=== PATIENT | male | born 1955 | race Caucasian/White ===

== ENCOUNTER 2019-05-05 11:03 | Inpatient (IN) | payer OTHER ==
[2019-05-05 13:13] LABS: BASO % 0.7 % (0-2.0); EOS % 0.4 % (0-4.5); HEMATOCRIT 26.3 % (35.4-49); HEMOGLOBIN 8.4 GM/dL (11.7-16.9); MCH 25.8 pg (25.7-33.7); MCHC 32.1 g/dl (32.0-35.9); MEAN CELL VOLUME 80.2 fl (80-96); MEAN PLT VOLUME 8.1 fl (7.5-11.1); MONO % 8.9 % (3.8-10.2); PLATELET COUNT 195 K/MM3 (134-434); RBC 3.28 M/mm3 (4.00-5.60); RDW 22.3 % (11.9-15.9); WHITE BLOOD COUNT 7.6 K/mm3 (4.0-10.0)
[2019-05-05 13:14] LABS: VENOUS PC02 38.6 mmHg (41-51); VENOUS PH 7.45 (7.31-7.41)
[2019-05-05 13:18] LABS: VENOUS PO2 19.9 mmHg (30-40)
[2019-05-05 13:23] LABS: INR 1.59 (0.83-1.09); PROTHROMBIN TIME (PATIENT) 18.8 SEC (9.7-13.0)
[2019-05-05 13:26] LABS: ACTIVATED PTT 35.2 SECONDS (25.2-36.5)
--- NOTE | 2019-05-05 13:41 | PDOC ---
Documentation entered by Kathia Martino SCRIBE, acting as scribe for Gopi Snowden MD. Gopi Snowden MD: This documentation has been prepared by the Gunner isaac Nirvannie, SCRIBE, under my direction and personally reviewed by me in its entirety. I confirm that the documentation accurately reflects all work, treatment, procedures, and medical decision making performed by me. History of Present Illness - General Chief Complaint: Shortness of Breath Stated Complaint: SOB Time Seen by Provider: 05/05/19 12:06 History Source: Patient Exam Limitations: No Limitations - History of Present Illness Initial Comments: 05/05/19 13:24 The patient is a 64 year old male, with a significant past medical history of polysubstance abuse (alcohol and cocaine, hx of withdrawal seizures), asthma, HTN, HLD, CAD (s/p mitral valve replacement 93, CABG 05, and pacemaker 09) CHF, and Aortic Aneurysm (ascending aorta, distal abdominal aorta, left common iliac artery, left internal iliac artery), who presents to the emergency department with worsening shortness of breath. As per EMR and patient, he was evaluated at [facility] in the [place] on 04/19 at which time he was discharged to [facility] detox on 04/29 on 5 days of Augmentin 875/125 BID and Doxycycline 100 MG BID (compliant). Patient notes his shortness of breath has not improved, prompting his arrival to the ED. Per the EMR, pt was hypoxic to 85 % at [facility] this morning. He denies any recent fevers, chills, cough, headache or dizziness. He denies any recent nausea, vomit, diarrhea or constipation. He denies any recent chest pain. He denies any recent dysuria, frequency, urgency or hematuria. Allergies: NKDA Social History: Alcohol and cocaine abuse, at [facility]. Medications: Metoprolol, Burlinta, Lasix 40 mg BID, ? anticoagulation medications compliance while at [facility]. Past History - Past Medical History Allergies/Adverse Reactions: Allergies Allergy/AdvReac Type Severity Reaction Status Date / Time No Known Allergies Allergy Verified 05/05/19 11:16 Home Medications: Ambulatory Orders Albuterol Sulfate Inhaler - [Ventolin HFA Inhaler -] 2 inh PO Q4H PRN #1 inh 05/01 Aspirin Coated [Ecotrin -] 81 mg PO DAILY #30 tablet.ec 05/22/15 Budesonide/Formeterol Fumarate [SYMBICORT 160/4.5mcg -] 2 inh IH BID #1 inhaler 05/22/15 Montelukast Na [Singulair -] 10 mg PO HS #30 tablet 05/22/15 Metoprolol Succinate [Toprol Xl] 50 mg PO DAILY 04/29/19 Thiamine HCl [Vitamin B1 -] 100 mg PO DAILY 04/29/19 Ticagrelor [Brilinta -] 90 mg PO BID 04/29/19 Atorvastatin Ca [Lipitor] 80 mg PO HS 05/05/19 Furosemide [Lasix -] 40 mg PO BID 05/05/19 Lisinopril [Prinivil] 5 mg PO DAILY 05/05/19 Anemia: No Asthma: Yes Cancer: No Cardiac Disorders: Yes CVA: No COPD: No CHF: Yes Dementia: No Diabetes: No GI Disorders: No Disorders: No HTN: Yes Hypercholesterolemia: Yes (on med) Kidney Stones: No Liver Disease: No Seizures: No Thyroid Disease: No - Surgical History Abdominal Surgery: No Appendectomy: No Cardiac Surgery: Yes (VALVE REPLACEMENT 1992 AND CABG 2004) Cholecystectomy: No Lung Surgery: No Neurologic Surgery: No Orthopedic Surgery: No - Reproductive History Testicular Surgery: No - Suicide/Smoking/Psychosocial Hx Smoking Status: Yes Smoking History: Former smoker Have you smoked in the past 12 months: Yes Number of Cigarettes Smoked Daily: 0 If you are a former smoker, when did you quit?: 04/29 Information on smoking cessation initiated: No 'Breaking Loose' booklet given: 04/29/19 Hx Alcohol Use: Yes Drug/Substance Use Hx: No Substance Use Type: Alcohol Hx Substance Use Treatment: Yes ([facility] 04/20/19 -04/29/19) Review of Systems - Review of Systems Able to Perform ROS?: Yes Comments:: 05/05/19 13:24 "GENERAL/CONSTITUTIONAL: No fever or chills. No weakness. HEAD, EYES, EARS, NOSE AND THROAT: No change in vision. No ear pain or discharge. No sore throat. GASTROINTESTINAL: No nausea, vomiting, diarrhea or constipation. GENITOURINARY: No dysuria, frequency, or change in urination. CARDIOVASCULAR: +SOB. No chest pain RESPIRATORY: No cough, wheezing, or hemoptysis. MUSCULOSKELETAL: No joint or muscle swelling or pain. No neck or back pain. SKIN: No rash NEUROLOGIC: No headache, vertigo, loss of consciousness, or change in strength/ sensation. ENDOCRINE: No increased thirst. No abnormal weight change. HEMATOLOGIC/LYMPHATIC: No anemia, easy bleeding, or history of blood clots. ALLERGIC/IMMUNOLOGIC: No hives or skin allergy." All Other Systems: Reviewed and Negative *Physical Exam - Vital Signs Last Vital Signs Temp Pulse Resp BP Pulse Ox 97.8 F 98 H 22 H 124/82 100 05/05/19 11:16 05/05/19 11:16 05/05/19 11:16 05/05/19 11:16 05/05/19 11:35 - Physical Exam Comments: 05/05/19 13:25 GENERAL: Awake, alert, and fully oriented, in mild resp distress HEAD: No signs of trauma EYES: PERRLA, EOMI, sclera anicteric, conjunctiva clear ENT: Oropharynx clear without exudates. Moist mucosa NECK: Normal ROM, supple, no lymphadenopathy, JVD, or masses LUNGS: Diminished BS throughout, rales throughout, no wheezing. Tachypneic to 35 HEART: Regular rate and rhythm, normal S1 and S2, no murmurs, rubs or gallops ABDOMEN: Soft, nontender, normoactive bowel sounds. No guarding, no rebound. No masses EXTREMITIES: Normal range of motion, mild symmetric LE edema to the knees b/l. No clubbing or cyanosis. No cords, erythema, or tenderness BACK: No midline spinal tenderness in cervical/thoracic/lumbar region NEUROLOGICAL: Normal speech, cranial nerves intact, equal strength and sensation b/l SKIN: chest scar c/d/i, otherwise Warm, Dry, normal turgor, no rashes or lesions noted. Heart Score/ECG Review #1 05/05/19 13:10 Twelve-lead EKG was performed and reviewed by me. Accelerated junctional rhytm, rate 95. LAD, wide QRS. No ABDIEL. Compared to previous EKG, no sig change ED Treatment Course - LABORATORY CBC & Chemistry Diagram: 05/05/19 13:00 05/05/19 13:00 - RADIOLOGY Radiology Studies Ordered: Category Date Time Status CHEST X-RAY PORTABLE* [RAD] Stat Radiology 05/05/19 12:51 Ordered Medical Decision Making - Medical Decision Making 05/05/19 13:04 64yo M with MMP including CABG, CHF, AAA, MVR, PPM, COPD, etoh abuse presents to the ED with progressive SOB x 1 week Pt tachypneic, otherwise satting 100% on 2L At [facility], pt was 85% on RA DDx includes PE vs CHF vs COPD vs ACS No chest or abdominal pain to suggest AAA and pulses/pressures equal b/l Plan for tele, labs, XR, ?CTA, admit 05/05/19 17:19 Labs with BNP 3800s hgb low to 8.2 but improved from 7.6 two days ago CTA ordered, reveals CHF and PNA Given recent failure of augmentin and doxy, pt covered with jesica Osman azithro Case discussed with TAMI Ruiz, pt accepted for admission to Dr. Carlos's service Case discussed in detail with admitting physician including history, physical exam and ancillary studies. Admitting physician has assumed care for the patient, will follow all pending diagnostics and will complete the evaluation and treatment. *DC/Admit/Observation/Transfer Diagnosis at time of Disposition: CHF (congestive heart failure), PNA (pneumonia) - Discharge Dispostion Condition at time of disposition: Stable - Referrals - Patient Instructions - Post Discharge Activity - Attestations Physician Attestion: 05/05/19 17:21 I, Dr. Gopi Snowden MD, attest that this document has been prepared under my direction and personally reviewed by me in its entirety. I further attest, that it accurately reflects all work, treatment, procedures and medical decision -making performed by me.
[2019-05-05 13:51] LABS: ALBUMIN 2.9 g/dl (3.4-5.0); BLOOD UREA NITROGEN 13.1 mg/dL (7-18); CALCIUM 8.6 mg/dL (8.5-10.1); CREATININE 0.9 mg/dL (0.55-1.3); N-TERMINAL BNP 3882.9 pg/ml (5-125); TOT PROT 7.2 g/dl (6.4-8.2)
[2019-05-05 13:52] LABS: MAGNESIUM 2.5 mg/dL (1.8-2.4); POTASSIUM 4.2 mmol/L (3.5-5.1)
[2019-05-05 15:35] LABS: ANISOCYTOSIS 0; MACROCYTOSIS 0; PLATELET ESTIMATE NORMAL
[2019-05-05] MEDS ORDERED: VANCOMYCIN 1,000 MG in DEXTROSE 5%-WATER - 250 ML IVPB ONE (17:03)
[2019-05-05] MEDS ORDERED: PIPERACILLIN/TAZOB 4.5 GM 4.5 GM in DEXTROSE 5%-WATER - 100 ML IVPB ONE (17:03)
[2019-05-05] MEDS ORDERED: AZITHROMYCIN IVPB 500 MG in DEXTROSE 5%-WATER - 250 ML IVPB ONE (17:04)
[2019-05-05] MEDS ORDERED: VANCOMYCIN 1 GRAM (PRE-DOCKED) 1,000 MG/250 ML BAG IVPB ONE (17:22)
[2019-05-05] MEDS ORDERED: AZITHROMYCIN IVPB 500 MG/250 ML BAG IVPB ONE (17:22)
[2019-05-05] MEDS ORDERED: PIPERACILLIN/TAZOB 4.5 GM 4.5 GM/100 ML BAG IVPB ONE (17:22)
--- NOTE | 2019-05-05 18:05 | HP ---
Admitting History and Physical - Admission Chief Complaint: Shortness of Breath History of Present Illness: The patient is a 64 year old male, with a significant past medical history of polysubstance abuse (alcohol and cocaine, hx of withdrawal seizures), asthma, HTN, HLD, CAD (s/p mitral valve replacement 93, CABG 05, and pacemaker 09) CHF, and Aortic Aneurysm (ascending aorta, distal abdominal aorta, left common iliac artery, left internal iliac artery), who presented to the emergency department with worsening shortness of breath. As per EMR and patient, he was evaluated at [facility] in the [place] on 04/19 at which time he was discharged to [facility] on 04/29 on 5 days of Augmentin 875/125 BID and Doxycycline 100 MG BID (compliant). Patient notes his shortness of breath has not improved, prompting his arrival to the ED. Per the EMR, pt was hypoxic to 85 % at [facility] this morning. SUBJECTIVE PT complains of a mild aching abdominal pain. He denies any recent fevers, chills, cough, headache or dizziness. He denies any recent nausea, vomit, diarrhea or constipation. He denies any recent chest pain. He denies any recent dysuria, frequency, urgency or hematuria. History Source: Patient - Past Medical History Cardiovascular: Yes: CAD, CHF, HTN, Hyperlipdemia, [place] Pulmonary: Yes: Asthma, COPD, Pneumonia Heme/Onc: Yes: Anemia Psych: Yes: Addictions (Alcohol, Cocaine) Musculoskeletal: Yes: Osteoarthritis - Past Surgical History Past Surgical History: Yes: CABG, Permanent Pacemaker, Valve Replacement - Smoking History Smoking history: Former smoker Have you smoked in the past 12 months: Yes Aproximately how many cigarettes per day: 0 If you are a former smoker, when did you quit?: 04/29 - Alcohol/Substance Use Hx Alcohol Use: Yes History of Substance Use: reports: Cocaine, Marijuana - Social History ADL: Independent History of Recent Travel: No Home Medications - Allergies Allergies/Adverse Reactions: Allergies Allergy/AdvReac Type Severity Reaction Status Date / Time No Known Allergies Allergy Verified 05/05/19 11:16 - Home Medications Home Medications: Ambulatory Orders Albuterol Sulfate Inhaler - [Ventolin HFA Inhaler -] 2 inh PO Q4H PRN #1 inh 05/01 Aspirin Coated [Ecotrin -] 81 mg PO DAILY #30 tablet.ec 05/22/15 Budesonide/Formeterol Fumarate [SYMBICORT 160/4.5mcg -] 2 inh IH BID #1 inhaler 05/22/15 Montelukast Na [Singulair -] 10 mg PO HS #30 tablet 05/22/15 Metoprolol Succinate [Toprol Xl] 50 mg PO DAILY 04/29/19 Thiamine HCl [Vitamin B1 -] 100 mg PO DAILY 04/29/19 Ticagrelor [Brilinta -] 90 mg PO BID 04/29/19 Atorvastatin Ca [Lipitor] 80 mg PO HS 05/05/19 Furosemide [Lasix -] 40 mg PO BID 05/05/19 Lisinopril [Prinivil] 5 mg PO DAILY 05/05/19 Family Disease History - Family Disease History Family Disease History: Other: Father (alcohol), Mother (alcohol AND ) Review of Systems - Review of Systems Constitutional: reports: Lethargy Eyes: reports: No Symptoms Neck: reports: No Symptoms Cardiovascular: reports: No Symptoms, Shortness of Breath Respiratory: reports: Cough, SOB, SOB on Exertion Gastrointestinal: reports: Abdominal Pain Genitourinary: reports: No Symptoms Musculoskeletal: reports: No Symptoms Integumentary: reports: No Symptoms Neurological: reports: No Symptoms Endocrine: reports: No Symptoms Physical Examination Vital Signs: Vital Signs Temperature 97.8 F 05/05/19 11:16 Pulse Rate 91 H 05/05/19 14:44 Respiratory Rate 22 H 05/05/19 14:44 Blood Pressure 137/89 05/05/19 14:44 O2 Sat by Pulse Oximetry (%) 96 05/05/19 14:44 Constitutional: Yes: Well Nourished, Diaphoresis Eyes: Yes: WNL, Conjunctiva Clear, EOM Intact HENT: Yes: WNL, Atraumatic, Normocephalic Neck: Yes: WNL, Supple, Trachea Midline Cardiovascular: Yes: WNL, Regular Rate and Rhythm, S1, S2 Respiratory: Yes: Diminished, On Nasal O2, SOB on Exertion, Other (Patient became mor short of breath during interview) Gastrointestinal: Yes: Normal Bowel Sounds, Soft, Distention, Tenderness ...Rectal Exam: Yes: Deferred Renal/: Yes: WNL Musculoskeletal: Yes: WNL Extremities: Yes: WNL Edema: No Peripheral Pulses WNL: Yes Integumentary: Yes: WNL Neurological: Yes: WNL, Alert, Oriented Psychiatric: Yes: WNL, Alert, Oriented Labs: CBC, BMP 05/05/19 13:00 05/05/19 13:00 Imaging - Results Chest X-ray: Report Reviewed (noted is the widened mediastinum with sternal sutures and left pacemaker. There are some progressive congestive changes with some pleural fluid and atelectasis at the bases. Follow-up recommended) Cat Scan: Report Reviewed (No CT evidence of pulmonary embolism. Several small patchy bilateral upper and mid lung opacities are seen suggestive of infiltrates, less likely pulmonary edema. Small loculated right pleural effusion with associated pleural thickening. A small amount of pleural fluid is seen within the right oblique fissure. Cardiomegaly. Status post median sternotomy with CABG. Transvenous cardiac pacemaker in place. Fusiform aneurysmal dilatation of the ascending aorta with a 4.5 cm diameter. Several nonspecific mildly enlarged mediastinal lymph nodes are seen. Correlation with 2-3 month follow-up CT is suggested unless prior exams are available from a different facility for direct comparison.) Assessment/Plan HOSPITAL ACQUIRED PNEUMONIA -Continue ABX -Vanco, Zosyn, and Zithromax -Consult ID -Consult Pulmonary -Suppplental O2 -Duo Nebs -Maintain 02 Sat 92% on Supp o2 CHF -Cautious Hydration -Repeat BNP in AM -Echo-If abnormal will consult Cardiology -Continue Home dose of Lasix 40 mg PO BID COPD -Continue Symbicort, ALbuterol, and Singulair HTN -Continue Metroprolol 50mg PO Daily MITRAL VALVE REPLACEMENT -Continue Brillinta -Continue ASA 81mg PO Daily ETOH -Pt was in inpatient rehab at [facility] before presenting to the ED -Continue Thiamine and Folic Acid HYPERCHOLESTEROLEMIA -Continue Atorvastatin 80mg PO HS PROPHYLACTIC -FEN -Maintain as Inpatient -Discharge Planning -Full Code Visit type - Emergency Visit Emergency Visit: Yes ED Registration Date: 05/05/19 Care time: The patient presented to the Emergency Department on the above date and was hospitalized for further evaluation of their emergent condition. - New Patient This patient is new to me today: Yes Date on this admission: 05/05/19 - Critical Care Critical Care patient: No
[2019-05-05] MEDS: ALBUTEROL SO4 2.5/IPRATROPIUM 0.5 INH SOL 3 ML VIAL.NEB. NEB PRN (19:09)
[2019-05-05] MEDS ORDERED: PIPERACILLIN/TAZOB 4.5 GM 4.5 GM in DEXTROSE 5%-WATER 100 ML IVPB SCH (19:30)
[2019-05-05] MEDS: PIPERACILLIN/TAZOB 4.5 GM 4.5 GM in DEXTROSE 5%-WATER 100 ML IVPB SCH (21:00)
[2019-05-05] MEDS: ATORVASTATIN CA 80 MG TABLET (FP) PO SCH (22:58)
[2019-05-05] MEDS: BUDESONIDE/FORMETEROL FUMARATE 160/4.5 mcg INHALER IH SCH (22:58)
[2019-05-05] MEDS: FUROSEMIDE 40 MG TABLET (FP) PO SCH (22:58)
[2019-05-05] MEDS: MONTELUKAST NA 10 MG TABLET PO SCH (22:58)
[2019-05-05] MEDS: TICAGRELOR 90 MG TABLET PO SCH (22:58)
[2019-05-06] MEDS ORDERED: DEXTROSE 5%-WATER 100 ML IVPB ONE ×3 (01:57→15:04)
[2019-05-06] MEDS ORDERED: PIPERACILLIN/TAZOBACTAM 4.5 GM VIAL IVPB ONE ×3 (01:57→15:04)
[2019-05-06] MEDS: PIPERACILLIN/TAZOB 4.5 GM 4.5 GM in DEXTROSE 5%-WATER 100 ML IVPB SCH ×3 (02:06→15:14)
[2019-05-06 07:01] LABS: BASO % 0.7 % (0-2.0); EOS % 1.1 % (0-4.5); HEMATOCRIT 24.4 % (35.4-49); HEMOGLOBIN 7.8 GM/dL (11.7-16.9); LYMPH % 15.9 % (8-40); MCH 25.5 pg (25.7-33.7); MCHC 31.9 g/dl (32.0-35.9); MEAN CELL VOLUME 80.1 fl (80-96); MEAN PLT VOLUME 8.1 fl (7.5-11.1); MONO % 8.7 % (3.8-10.2); NEUT % 73.6 % (42.8-82.8); PLATELET COUNT 177 K/MM3 (134-434); RBC 3.05 M/mm3 (4.00-5.60); RDW 22.2 % (11.9-15.9); WHITE BLOOD COUNT 7.4 K/mm3 (4.0-10.0)
[2019-05-06] MEDS: ALBUTEROL SO4 2.5/IPRATROPIUM 0.5 INH SOL 3 ML VIAL.NEB. NEB PRN ×2 (07:03→11:58)
[2019-05-06 07:10] LABS: ALBUMIN 2.7 g/dl (3.4-5.0); BILIRUBIN,TOTAL 1.8 mg/dL (0.2-1); BLOOD UREA NITROGEN 13.1 mg/dL (7-18); CALCIUM 8.2 mg/dL (8.5-10.1); MAGNESIUM 2.5 mg/dL (1.8-2.4); N-TERMINAL BNP 2185.3 pg/ml (5-125); POTASSIUM 3.9 mmol/L (3.5-5.1); TOT PROT 6.6 g/dl (6.4-8.2)
[2019-05-06 07:22] LABS: INR 1.52 (0.83-1.09)
--- NOTE | 2019-05-06 07:36 | PN ---
Progress Note, Physician Chief Complaint: SOB History of Present Illness: The patient is a 64 year old male, with a significant past medical history of polysubstance abuse (alcohol and cocaine, hx of withdrawal seizures), asthma, HTN, HLD, CAD (s/p mitral valve replacement 93, CABG 05, and pacemaker 09) CHF, and Aortic Aneurysm (ascending aorta, distal abdominal aorta, left common iliac artery, left internal iliac artery), who presented to the emergency department with worsening shortness of breath. As per EMR and patient, he was evaluated at [facility] in the [place] on 04/19 at which time he was discharged to [facility] on 04/29 on 5 days of Augmentin 875/125 BID and Doxycycline 100 MG BID (compliant). Patient notes his shortness of breath has not improved, prompting his arrival to the ED. Per the EMR, pt was hypoxic to 85 % at [facility] this morning. - Current Medication List Current Medications: Active Medications Albuterol/Ipratropium (Duoneb -) 1 amp NEB Q4H PRN PRN Reason: SHORTNESS OF BREATH Last Admin: 05/06/19 07:03 Dose: 1 amp Aspirin (Ecotrin -) 81 mg PO DAILY MICHELLE Atorvastatin Calcium (Lipitor -) 80 mg PO HS [facility] Last Admin: 05/05/19 22:58 Dose: 80 mg Budesonide/Formoterol Fumarate (Symbicort 160/4.5mcg -) 2 puff IH BID [facility] Last Admin: 05/05/19 22:58 Dose: 2 inh Folic Acid (Folic Acid -) 1 mg PO DAILY MICHELLE Furosemide (Lasix -) 40 mg PO BID MICHELLE Last Admin: 05/05/19 22:58 Dose: 40 mg Piperacillin Sod/Tazobactam (Sod 4.5 gm/ Dextrose) 100 mls @ 200 mls/hr IVPB Q6H-IV MICHELLE; Protocol Azithromycin (Zithromax 500mg Ivpb (Pre-Docked)) 500 mg in 250 mls @ 250 mls/ hr IVPB DAILY MICHELLE Piperacillin Sod/Tazobactam (Sod 4.5 gm/ Dextrose) 100 mls @ 100 mls/hr IVPB Q6H MICHELLE Stop: 05/06/19 15:59 Last Admin: 05/06/19 02:06 Dose: 100 mls/hr Lisinopril (Prinivil) 5 mg PO DAILY MICHELLE Metoprolol Succinate (Toprol Xl -) 50 mg PO DAILY [facility] Montelukast Sodium (Singulair -) 10 mg PO HS [facility] Last Admin: 05/05/19 22:58 Dose: 10 mg Multivitamins/Minerals/Vitamin C (Tab-A-Vit -) 1 tab PO DAILY [facility] Thiamine HCl (Vitamin B1 -) 100 mg PO DAILY [facility] Ticagrelor (Brilinta -) 90 mg PO BID [facility] Last Admin: 05/05/19 22:58 Dose: 90 mg - Objective Vital Signs: Vital Signs Temperature 98.7 F 05/06/19 01:47 Pulse Rate 82 05/06/19 05:29 Respiratory Rate 18 05/06/19 05:29 Blood Pressure 92/68 05/06/19 05:29 O2 Sat by Pulse Oximetry (%) 94 L 05/05/19 22:35 Constitutional: Yes: Well Nourished, No Distress, Calm Eyes: Yes: WNL, Conjunctiva Clear, EOM Intact HENT: Yes: WNL, Atraumatic, Normocephalic Neck: Yes: WNL, Supple, Trachea Midline Cardiovascular: Yes: WNL, Regular Rate and Rhythm, Tachycardia Respiratory: Yes: Regular, Diminished (at bases), On Nasal O2 (4L), SOB on Exertion Gastrointestinal: Yes: WNL, Normal Bowel Sounds, Soft ...Rectal Exam: Yes: Deferred Musculoskeletal: Yes: WNL Extremities: Yes: WNL Edema: No Peripheral Pulses WNL: Yes Integumentary: Yes: WNL Neurological: Yes: WNL, Alert, Oriented ...Motor Strength: WNL Psychiatric: Yes: WNL, Alert, Oriented Labs: CBC, BMP 05/06/19 05:50 INR, PTT INR 1.52 (0.83-1.09) H 05/06/19 05:50 - ....Imaging Chest X-ray: Report Reviewed, Image Reviewed Cat Scan: Report Reviewed (Chest X-ray: Report Reviewed (noted is the widened mediastinum with sternal sutures and left pacemaker. There are some progressive congestive changes with some pleural fluid and atelectasis at the bases. Follow -up recommended) Cat Scan: Report Reviewed (No CT evidence of pulmonary embolism. Several small patchy bilateral upper and mid lung opacities are seen suggestive of infiltrates, less likely pulmonary edema. Small loculated right pleural effusion with associated pleural thickening. A small amount of pleural fluid is seen within the right oblique fissure. Cardiomegaly. Status post median sternotomy with CABG. Transvenous cardiac pacemaker in place. Fusiform aneurysmal dilatation of the ascending aorta with a 4.5 cm diameter. Several nonspecific mildly enlarged mediastinal lymph nodes are seen. Correlation with 2-3 month follow-up CT is suggested unless prior exams are available from a different facility for direct comparison.)) Other: Report Reviewed (TTE: global hypokinesis, EF 35-30%, mild MR/TR) Problem List - Problems (1) CHF (congestive heart failure) Assessment/Plan: Decompensated CHF continue lasix 40mg IV BID TTE with global hypokenesis, EF 25-30% Cardiology consult pending -Cautious Hydration -BNP in AM -Echo-If abnormal will consult Cardiology -Continue Home dose of Lasix 40 mg PO BID COPD -Continue Symbicort, ALbuterol, and Singulair HTN -Continue Metroprolol 50mg PO Daily MITRAL VALVE REPLACEMENT -Continue Brillinta -Continue ASA 81mg PO Daily ETOH -Pt was in inpatient rehab at [facility] before presenting to the ED -Continue Thiamine and Folic Acid HYPERCHOLESTEROLEMIA -Continue Atorvastatin 80mg PO HS PROPHYLACTIC -FEN -Maintain as Inpatient -Discharge Planning -Full Code Code(s): I50.9 - HEART FAILURE, UNSPECIFIED (2) PNA (pneumonia) Assessment/Plan: -CXR suggestive of more CHR decomepsation vs Pna -no leukocytosis, afebrile, DC abx and will monitor off -appreciate Pulmonary recommendations -Suppplental O2 NC -Duo Nebs prn -Maintain 02 Sat 92% on Supp o2 Code(s): J18.9 - PNEUMONIA, UNSPECIFIED ORGANISM (3) Anemia Assessment/Plan: monitor CBC transfuse for hgb <8 given cardiac disaese start iron and folic acid Code(s): D64.9 - ANEMIA, UNSPECIFIED Qualifiers: Anemia type: iron deficiency (4) Essential hypertension Assessment/Plan: patient normotensive continue lisinipril tele monitoring Code(s): I10 - ESSENTIAL (PRIMARY) HYPERTENSION (5) Hx of cardiac pacemaker Assessment/Plan: follow up with primary piano accompanist Code(s): Z95.0 - PRESENCE OF CARDIAC PACEMAKER (6) S/P CABG (coronary artery bypass graft) Code(s): Z95.1 - PRESENCE OF AORTOCORONARY BYPASS GRAFT (7) Polysubstance (including opioids) dependence without physiological dependence Assessment/Plan: continue thiamin, MVI, and folic acid refer back to [facility] when medically stable-Dr Obrien Code(s): F19.20 - OTHER PSYCHOACTIVE SUBSTANCE DEPENDENCE, UNCOMPLICATED (8) Hx of hyperlipidemia Assessment/Plan: continue atorostatin Code(s): Z86.39 - PERSONAL HISTORY OF ENDO, NUTRITIONAL AND METABOLIC DISEASE (9) Asthma Code(s): J45.909 - UNSPECIFIED ASTHMA, UNCOMPLICATED (10) COPD (chronic obstructive pulmonary disease) Assessment/Plan: continue inhaled steroids/bronchodilators BiPap as needed at night Code(s): J44.9 - CHRONIC OBSTRUCTIVE PULMONARY DISEASE, UNSPECIFIED Qualifiers: Emphysema type: unspecified (11) Thoracic aortic aneurysm Assessment/Plan: outpatient surveillance Code(s): I71.2 - THORACIC AORTIC ANEURYSM, WITHOUT RUPTURE Visit type - Emergency Visit Emergency Visit: Yes ED Registration Date: 05/05/19 Care time: The patient presented to the Emergency Department on the above date and was hospitalized for further evaluation of their emergent condition. - New Patient This patient is new to me today: No - Critical Care Critical Care patient: No - Discharge Referral Referred to [facility] No
[2019-05-06] MEDS ORDERED: AZITHROMYCIN IVPB 500 MG/250 ML BAG IVPB SCH (10:00)
[2019-05-06] MEDS: BUDESONIDE/FORMETEROL FUMARATE 160/4.5 mcg INHALER IH SCH ×2 (10:20→21:05)
[2019-05-06] MEDS: MULTIVITAMINS (DAILY MVI) TABLET (FP) PO SCH (10:22)
[2019-05-06] MEDS: LISINOPRIL 20 MG TABLET (FP) PO SCH (10:22)
[2019-05-06] MEDS: FUROSEMIDE 40 MG TABLET (FP) PO SCH (10:22)
[2019-05-06] MEDS: FOLIC ACID 1 MG TABLET (FP) PO SCH (10:22)
[2019-05-06] MEDS: ASPIRIN COATED 81 MG TABLET.EC PO SCH (10:22)
[2019-05-06] MEDS: THIAMINE HCL 100 MG TABLET (FP) PO SCH (10:22)
[2019-05-06] MEDS: TICAGRELOR 90 MG TABLET PO SCH ×2 (10:29→21:04)
[2019-05-06] MEDS ORDERED: PT OWN MED DRAWER 7, Y5N ONE (10:31)
--- NOTE | 2019-05-06 12:33 | EKG ---
Test Reason : Blood Pressure : / mmHG Vent. Rate : 095 BPM Atrial Rate : 091 BPM P-R Int : 000 ms QRS Dur : 156 ms QT Int : 434 ms P-R-T Axes : 000 -63 046 degrees QTc Int : 545 ms WIDE QRS RHYTHM LEFT AXIS DEVIATION LEFT VENTRICULAR HYPERTROPHY WITH QRS WIDENING LATERAL INFARCT , AGE UNDETERMINED INFERIOR INFARCT , AGE UNDETERMINED ABNORMAL ECG WHEN COMPARED WITH ECG OF 29-APR-2019 18:30, NO SIGNIFICANT CHANGE WAS FOUND Confirmed by STEVE BUTLER MD ([id number]) on 05/06/2019 12:32:50 PM Referred By: Confirmed By:STEVE BUTLER MD
--- NOTE | 2019-05-06 12:59 | CON.PULM ---
Consult Consult Specialty:: PULMONARY Referred by:: Hospitalist Reason for Consultation:: shortness of breath - History of Present Illness Chief Complaint: shortness of breath History of Present Illness: 64yo male with h/o HTN, hyperlipidemia, polysubstance abuse, CAD s/p CABG, s/p MVR, CHF, COPD who was sent from [facility] for shortness of breath and hypoxia. Denies chest pain or palpitations. Reports a cough productive of brown sputum and wheezing. No fevers, chills or sweats. Does use inhalers at home but does not recall the names. - History Source History Provided By: Patient, Medical Record Limitations to Obtaining History: Clinical Condition - Past Medical History Cardio/Vascular: Yes: CAD, CHF, HTN, Hyperlipdemia, [place] Pulmonary: Yes: Asthma, COPD, Pneumonia Psych: Yes: Addictions (Alcohol, Cocaine) Musculoskeletal: Yes: Osteoarthritis - Past Surgical History Past Surgical History: Yes: CABG, Permanent Pacemaker, Valve Replacement - Alcohol/Substance Use Hx Alcohol Use: Yes History of Substance Use: reports: Cocaine, Marijuana - Smoking History Smoking history: Former smoker Have you smoked in the past 12 months: Yes Aproximately how many cigarettes per day: 0 If you are a former smoker, when did you quit?: 04/29 - Social History ADL: Independent History of Recent Travel: No Home Medications - Allergies Allergies/Adverse Reactions: Allergies Allergy/AdvReac Type Severity Reaction Status Date / Time No Known Allergies Allergy Verified 05/05/19 11:16 - Home Medications Home Medications: Ambulatory Orders Albuterol Sulfate Inhaler - [Ventolin HFA Inhaler -] 2 inh PO Q4H PRN #1 inh 05/01 Aspirin Coated [Ecotrin -] 81 mg PO DAILY #30 tablet.ec 05/22/15 Budesonide/Formeterol Fumarate [SYMBICORT 160/4.5mcg -] 2 inh IH BID #1 inhaler 05/22/15 Montelukast Na [Singulair -] 10 mg PO HS #30 tablet 05/22/15 Metoprolol Succinate [Toprol Xl] 50 mg PO DAILY 04/29/19 Thiamine HCl [Vitamin B1 -] 100 mg PO DAILY 04/29/19 Ticagrelor [Brilinta -] 90 mg PO BID 04/29/19 Atorvastatin Ca [Lipitor] 80 mg PO HS 05/05/19 Furosemide [Lasix -] 40 mg PO BID 05/05/19 Lisinopril [Prinivil] 5 mg PO DAILY 05/05/19 Family Disease History - Family Disease History Family Disease History: Other: Father (alcohol), Mother (alcohol AND ) Review of Systems - Review of Systems Constitutional: reports: Weakness. denies: Chills, Fever Eyes: denies: Recent Change in Vision HENT: denies: Nasal Congestion, Throat Pain Neck: denies: Stiffness, Tenderness Cardiovascular: reports: Shortness of Breath. denies: Chest Pain, Edema, Palpitations Respiratory: reports: Cough, Exercise Intolerance, SOB on Exertion, Wheezing. denies: Hemoptysis Gastrointestinal: denies: Abdominal Pain, Nausea, Vomiting Genitourinary: denies: Dysuria, Hematuria Neurological: denies: Dizziness, Headache Endocrine: denies: Unexplained Weight Loss Physical Exam Vital Sings: Vital Signs Temperature 98.7 F 05/06/19 09:00 Pulse Rate 100 H 05/06/19 09:00 Respiratory Rate 18 05/06/19 09:00 Blood Pressure 99/62 05/06/19 09:00 O2 Sat by Pulse Oximetry (%) 95 05/06/19 09:00 Constitutional: Yes: Anxious, Mild Distress Eyes: Yes: Conjunctiva Clear, EOM Intact HENT: Yes: Atraumatic, Normocephalic Neck: Yes: Supple, Trachea Midline Cardiovascular: Yes: Regular Rate and Rhythm, JVD Respiratory: Yes: Rhonchi (scattered) ...Clubbing: No Gastrointestinal: Yes: Normal Bowel Sounds, Soft. No: Tenderness Edema: No Neurological: Yes: Alert, Oriented Labs: CBC, BMP 05/06/19 05:50 05/06/19 05:50 Imaging - Results Chest X-ray: Report Reviewed, Image Reviewed Cat Scan: Report Reviewed, Image Reviewed (diffuse ground glass opacities) Problem List - Problems (1) CHF (congestive heart failure) Code(s): I50.9 - HEART FAILURE, UNSPECIFIED (2) CAD (coronary artery disease) Code(s): I25.10 - ATHSCL HEART DISEASE OF [place] CORONARY ARTERY W/O ANG PCTRS Qualifiers: Coronary Disease-Associated Artery/Lesion type: bypass graft (3) COPD (chronic obstructive pulmonary disease) Code(s): J44.9 - CHRONIC OBSTRUCTIVE PULMONARY DISEASE, UNSPECIFIED Qualifiers: Emphysema type: unspecified (4) Essential hypertension Code(s): I10 - ESSENTIAL (PRIMARY) HYPERTENSION (5) S/P CABG (coronary artery bypass graft) Code(s): Z95.1 - PRESENCE OF AORTOCORONARY BYPASS GRAFT Assessment/Plan Decompensated CHF r/o Acute COPD Exacerbation Less likely Pneumonia CAD s/p CABG h/o MVR HTN Hyperlipidemia Polysubstance Abuse - IV lasix - monitor urine output, creatinine - echocardiogram - empiric medrol - inhaled bronchodilators standing and PRN - BiPAP to assist in work of breathing - recently completed antibiotic course as outpt, no fevers or leukocytosis, would monitor off for now - outpt PFTs - DVT prophylaxis Thank you for this consult Luis Arreola MD
[2019-05-06] MEDS ORDERED: ALBUTEROL SO4 0.083% IH SOL 2.5 MG/3 ML VIAL.NEB. NEB PRN (13:01)
--- NOTE | 2019-05-06 13:02 | ECHO ---
Name: MICHAEL RIZO Exam:Adult Echocardiogram Study Date: 05/06/2019 08:19 AM Age: 64 yrs Reason For Study: CHF Height: 65 in Weight: 166 lb BSA: 1.8 m2 MMode/2D Measurements & Calculations IVSd: 0.96 cm Ao root diam: 2.9 cm LVIDd: 5.9 cm LA dimension: 4.5 cm LVIDs: 4.4 cm LVPWd: 0.91 cm EDV(Teich): 173.9 ml LVOT diam: 2.0 cm ESV(Teich): 88.4 ml Doppler Measurements & Calculations MV E max tod: 270.3 cm/sec MVA(VTI): 2.8 cm2 MV A max tod: 75.7 cm/sec MV V2 max: 318.4 cm/sec MV E/A: 3.6 MV max P.5 mmHg MV dec time: 0.27 sec MV V2 mean: 135.9 cm/sec MV mean P.0 mmHg MV V2 VTI: 50.2 cm Ao V2 max: 229.2 cm/sec LV V1 max P.3 mmHg Ao max P.0 mmHg LV V1 mean P.9 mmHg Ao V2 mean: 189.2 cm/sec LV V1 max: 265.9 cm/sec Ao mean P.2 mmHg LV V1 mean: 129.8 cm/sec Ao V2 VTI: 46.6 cm LV V1 VTI: 43.9 cm CRYSTAL(I,D): 3.0 cm2 CRYSTAL(V,D): 3.7 cm2 MR max tod: 430.4 cm/sec SV(LVOT): 138.4 ml MR max P.1 mmHg TR max tod: 344.8 cm/sec Med Peak E' Tod: 8.4 cm/sec TR max P.9 mmHg Med E/e': 32.2 Lat Peak E' Tod: 12.6 cm/sec Lat E/e': 21.5 Procedure A complete two-dimensional transthoracic echocardiogram was performed (2D, M-mode, Doppler and color flow Doppler). The study was technically difficult with many images being suboptimal in quality. Left Ventricle The left ventricle is mildly dilated. Left ventricular systolic function is severely reduced. Ejectio n Fraction = 25-30%. There is severe global hypokinesis of the left ventricle. Right Ventricle The right ventricle is normal in size and function. Atria Normal left and right atrial size and function. Mitral Valve There is a bioprosthetic mitral valve. The prosthetic mitral valve is well-seated. There is no mitral regurgitation noted. Tricuspid Valve There is mild tricuspid regurgitation. Right ventricular systolic pressure is elevated at 40-50mmHg. Aortic Valve Mild valvular aortic stenosis. No aortic regurgitation is present. Pulmonic Valve There is no pulmonic valvular regurgitation. Great Vessels The aortic root is normal size. Pericardium/Pleura There is no pericardial effusion. Interpretation Summary The study was technically difficult with many images being suboptimal in quality. The left ventricle is mildly dilated. Left ventricular systolic function is severely reduced. There is severe global hypokinesis of the left ventricle. The right ventricle is normal in size and function. There is a bioprosthetic mitral valve. The prosthetic mitral valve is well-seated. There is mild tricuspid regurgitation. Right ventricular systolic pressure is elevated at 40-50mmHg. Mild valvular aortic stenosis. MD Kyler Casarez 05/06/2019 01:02 PM
[2019-05-06] MEDS: FERROUS SO4 325 MG TABLET (FP) PO SCH ×2 (13:38→17:18)
[2019-05-06] MEDS: FUROSEMIDE 40 MG/4 ML INJECTABLE VIAL IVPUSH SCH (15:13)
[2019-05-06] MEDS: methylPREDNISolone NA SUCC 40 MG/1 ML VIAL IVPUSH SCH ×2 (15:13→17:18)
--- NOTE | 2019-05-06 15:54 | CON.CARD ---
Consult Consult Specialty:: Cardiology Referred by:: Medicine Reason for Consultation:: CHF - History of Present Illness Chief Complaint: short of breath History of Present Illness: 64M h/o substance abuse EtOH and cocaine, asthma, HTN, HLD, CAD, s/p MVR, s/p CABG, s/p PPM, chronic systolic HF, aorta aneurysm (ascending aorta, distal abdominal aorta, left common iliac artery, left internal iliac artery) p/w dyspnea, hypoxia. Recently evaluated in ER for PNA, was on abx, now with worsening dyspnea, hypoxic to 85% at [facility] prior to admission. Received abx for concern for HCAP, also IV lasix for CHF. He feels a little better but still sob if he gets up. No chest pain, palps, dizziness. 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 - Past Medical History Cardio/Vascular: Yes: CAD, CHF, HTN, Hyperlipdemia, [place] Pulmonary: Yes: Asthma, COPD, Pneumonia Psych: Yes: Addictions (Alcohol, Cocaine) Musculoskeletal: Yes: Osteoarthritis - Past Surgical History Past Surgical History: Yes: CABG, Permanent Pacemaker, Valve Replacement - Alcohol/Substance Use Hx Alcohol Use: Yes History of Substance Use: reports: Cocaine, Marijuana - Smoking History Smoking history: Former smoker Have you smoked in the past 12 months: Yes Aproximately how many cigarettes per day: 0 If you are a former smoker, when did you quit?: 04/29 - Social History ADL: Independent History of Recent Travel: No Home Medications - Allergies Allergies/Adverse Reactions: Allergies Allergy/AdvReac Type Severity Reaction Status Date / Time No Known Allergies Allergy Verified 05/05/19 11:16 - Home Medications Home Medications: Ambulatory Orders Albuterol Sulfate Inhaler - [Ventolin HFA Inhaler -] 2 inh PO Q4H PRN #1 inh 05/01 Aspirin Coated [Ecotrin -] 81 mg PO DAILY #30 tablet.ec 05/22/15 Budesonide/Formeterol Fumarate [SYMBICORT 160/4.5mcg -] 2 inh IH BID #1 inhaler 05/22/15 Montelukast Na [Singulair -] 10 mg PO HS #30 tablet 05/22/15 Metoprolol Succinate [Toprol Xl] 50 mg PO DAILY 04/29/19 Thiamine HCl [Vitamin B1 -] 100 mg PO DAILY 04/29/19 Ticagrelor [Brilinta -] 90 mg PO BID 04/29/19 Atorvastatin Ca [Lipitor] 80 mg PO HS 05/05/19 Furosemide [Lasix -] 40 mg PO BID 05/05/19 Lisinopril [Prinivil] 5 mg PO DAILY 05/05/19 Family Disease History - Family Disease History Family Disease History: Other: Father (alcohol), Mother (alcohol AND ) Review of Systems - Review of Systems Constitutional: reports: No Symptoms Eyes: reports: No Symptoms HENT: reports: No Symptoms Neck: reports: No Symptoms Cardiovascular: reports: No Symptoms Respiratory: reports: No Symptoms Gastrointestinal: reports: No Symptoms Genitourinary: reports: No Symptoms Musculoskeletal: reports: No Symptoms Integumentary: reports: No Symptoms Neurological: reports: No Symptoms Endocrine: reports: No Symptoms Hematology/Lymphatic: reports: No Symptoms Psychiatric: reports: No Symptoms Vital Signs: Vital Signs Temperature 98.3 F 05/06/19 14:00 Pulse Rate 94 H 05/06/19 14:00 Respiratory Rate 18 05/06/19 09:00 Blood Pressure 121/67 05/06/19 14:00 O2 Sat by Pulse Oximetry (%) 95 05/06/19 09:00 Constitutional: Yes: Well Nourished, No Distress, Calm Eyes: Yes: Conjunctiva Clear, EOM Intact HENT: Yes: Atraumatic, Normocephalic Neck: Yes: Supple, Trachea Midline Respiratory: Yes: Regular, Rales, Rhonchi Gastrointestinal: Yes: Normal Bowel Sounds, Soft Cardiovascular: Yes: Regular Rate and Rhythm JVD: No Carotid Bruit: No PMI: Non-Displaced Heart Sounds: Yes: S1, S2 Musculoskeletal: No: Back Pain Extremities: No: Cold Edema: No Peripheral Pulses WNL: Yes Peripheral Pulses: 2+ Left Doralis Pedis, 2+ Right Dorsalis Pedis Integumentary: No: Jaundice Neurological: Yes: Alert, Oriented Psychiatric: No: Agitated - Other Data Labs, Other Data: CBC, BMP 05/06/19 05:50 05/06/19 05:50 INR, PTT INR 1.52 (0.83-1.09) H 05/06/19 05:50 Troponin, BNP 05/06/19 05/06/19 01:40 05:50 Troponin I < 0.02 B-Natriuretic Peptide 2185.3 H Troponin, BNP 05/06/19 05/06/19 01:40 05:50 Troponin I < 0.02 B-Natriuretic Peptide 2185.3 H Assessment/Plan echo 04/2019 tds, LV mildly dilated, severely reduced LV function, RV nl, bio MVR , mild TR, RVSP elevated 40-50 mmHg, mild EKG: sinus, LVH, no ischemic changes tele: sinus CTA chest: patchy infiltrates, small loculated pleural effusion, s/p CABG, PPM, dilated ascending aorta 4.5 cm, mildly enlarged mediastinal lymph nodes acute on chronic HF exacerbation, shortness of breath - continue IV lasix - monitor daily weights, Cr, lytes - continue ACEI, bb COPD - steroids, nebs per pulm CAD - trop neg x 2, EKG unchanged from prior - cont aspirin, statin, ticagrelor - outpatient regimen PPM - outpatient followup thoracic aorta aneurysm - outpatient surveillance HTN - cont home meds HLD - cont statin
[2019-05-06] MEDS: ALBUTEROL SO4 2.5/IPRATROPIUM 0.5 INH SOL 3 ML VIAL.NEB. NEB SCH ×2 (16:11→20:36)
[2019-05-06] MEDS: ATORVASTATIN CA 80 MG TABLET (FP) PO SCH (21:04)
[2019-05-06] MEDS: MONTELUKAST NA 10 MG TABLET PO SCH (21:04)
[2019-05-07] MEDS: methylPREDNISolone NA SUCC 40 MG/1 ML VIAL IVPUSH SCH ×3 (01:28→17:21)
[2019-05-07] MEDS: FUROSEMIDE 40 MG/4 ML INJECTABLE VIAL IVPUSH SCH ×2 (07:12→14:37)
[2019-05-07] MEDS: ALBUTEROL SO4 2.5/IPRATROPIUM 0.5 INH SOL 3 ML VIAL.NEB. NEB SCH ×4 (07:52→20:45)
--- NOTE | 2019-05-07 07:53 | PN ---
Progress Note, Physician Chief Complaint: SOB History of Present Illness: The patient is a 64 year old male, with a significant past medical history of polysubstance abuse (alcohol and cocaine, hx of withdrawal seizures), asthma, HTN, HLD, CAD (s/p mitral valve replacement 93, CABG 05, and pacemaker 09) CHF, and Aortic Aneurysm (ascending aorta, distal abdominal aorta, left common iliac artery, left internal iliac artery), who presented to the emergency department with worsening shortness of breath. As per EMR and patient, he was evaluated at [facility] in the [place] on 04/19 at which time he was discharged to [facility] on 04/29 on 5 days of Augmentin 875/125 BID and Doxycycline 100 MG BID (compliant). Patient notes his shortness of breath has not improved, prompting his arrival to the ED. Per the EMR, pt was hypoxic to 85 % at [facility] prior to admission - Current Medication List Current Medications: Active Medications Albuterol Sulfate (Ventolin 0.083% Nebulizer Soln -) 1 amp NEB Q4H PRN PRN Reason: SHORT OF BREATH/WHEEZING Albuterol/Ipratropium (Duoneb -) 1 amp NEB RQID [facility] Last Admin: 05/07/19 07:52 Dose: 1 amp Aspirin (Ecotrin -) 81 mg PO DAILY [facility] Last Admin: 05/06/19 10:22 Dose: 81 mg Atorvastatin Calcium (Lipitor -) 80 mg PO HS [facility] Last Admin: 05/06/19 21:04 Dose: 80 mg Budesonide/Formoterol Fumarate (Symbicort 160/4.5mcg -) 2 puff IH BID [facility] Last Admin: 05/06/19 21:05 Dose: 2 puff Ferrous Sulfate (Feosol -) 325 mg PO TIDCM [facility] Last Admin: 05/06/19 17:18 Dose: 325 mg Folic Acid (Folic Acid -) 1 mg PO DAILY [facility] Last Admin: 05/06/19 10:22 Dose: 1 mg Furosemide (Lasix Injection -) 40 mg IVPUSH BID@0600,1400 [facility] Last Admin: 05/07/19 07:12 Dose: 40 mg Lisinopril (Prinivil) 5 mg PO DAILY [facility] Last Admin: 05/06/19 10:22 Dose: 5 mg Methylprednisolone Sodium Succinate (Solu-Medrol -) 60 mg IVPUSH Q8H-IV [facility] Last Admin: 05/07/19 01:28 Dose: 60 mg Metoprolol Succinate (Toprol Xl -) 50 mg PO DAILY [facility] Last Admin: 05/06/19 10:22 Dose: 50 mg Montelukast Sodium (Singulair -) 10 mg PO HS [facility] Last Admin: 05/06/19 21:04 Dose: 10 mg Multivitamins/Minerals/Vitamin C (Tab-A-Vit -) 1 tab PO DAILY [facility] Last Admin: 05/06/19 10:22 Dose: 1 tab Thiamine HCl (Vitamin B1 -) 100 mg PO DAILY [facility] Last Admin: 05/06/19 10:22 Dose: 100 mg Ticagrelor (Brilinta -) 90 mg PO BID [facility] Last Admin: 05/06/19 21:04 Dose: 90 mg - Objective Vital Signs: Vital Signs Temperature 97.5 F L 05/07/19 06:00 Pulse Rate 74 05/07/19 06:00 Respiratory Rate 18 05/07/19 06:00 Blood Pressure 101/71 05/07/19 06:00 O2 Sat by Pulse Oximetry (%) 99 05/06/19 21:00 Constitutional: Yes: Well Nourished, No Distress, Calm Eyes: Yes: WNL, Conjunctiva Clear, EOM Intact HENT: Yes: WNL, Atraumatic, Normocephalic Neck: Yes: WNL, Supple, Trachea Midline Cardiovascular: Yes: WNL, Regular Rate and Rhythm Respiratory: Yes: Regular, Diminished (at bases), On Nasal O2, Other (BiPap as needed) Gastrointestinal: Yes: WNL, Normal Bowel Sounds, Soft ...Rectal Exam: Yes: Deferred Genitourinary: Yes: WNL Musculoskeletal: Yes: WNL Extremities: Yes: WNL Edema: Yes Edema: LLE: 1+, RLE: 1+ Peripheral Pulses WNL: Yes Integumentary: Yes: WNL Neurological: Yes: WNL, Alert, Oriented ...Motor Strength: WNL Psychiatric: Yes: WNL, Alert, Oriented Labs: CBC, BMP 05/06/19 05:50 05/06/19 05:50 INR, PTT INR 1.52 (0.83-1.09) H 05/06/19 05:50 - ....Imaging Chest X-ray: Report Reviewed, Image Reviewed Cat Scan: Report Reviewed (CT No CT evidence of pulmonary embolism. Several small patchy bilateral upper and mid lung opacities are seen suggestive of infiltrates, less likely pulmonary edema. Small loculated right pleural effusion with associated pleural thickening. A small amount of pleural fluid is seen within the right oblique fissure. Cardiomegaly. Status post median sternotomy with CABG. Transvenous cardiac pacemaker in place. Fusiform aneurysmal dilatation of the ascending aorta with a 4.5 cm diameter. Several nonspecific mildly enlarged mediastinal lymph nodes are seen. Correlation with 2-3 month follow-up CT is suggested unless prior exams are available from a different facility for direct comparison.) Other: Report Reviewed ( TTE: global hypokinesis, EF 35-30%, mild MR/TR)) Problem List - Problems (1) CHF (congestive heart failure) Assessment/Plan: Decompensated CHF continue lasix 40mg IV BID TTE with global hypokenesis, EF 25-30% Cardiology consult appreciated Code(s): I50.9 - HEART FAILURE, UNSPECIFIED (2) PNA (pneumonia) Assessment/Plan: -CXR suggestive of more CHR decomepsation vs Pna -no leukocytosis, afebrile, DC abx and will monitor off -appreciate Pulmonary recommendations -Suppplental O2 NC -Duo Nebs prn -Maintain 02 Sat 92% on Supp o2 Code(s): J18.9 - PNEUMONIA, UNSPECIFIED ORGANISM (3) Anemia Assessment/Plan: monitor CBC transfuse for hgb 7 given cardiac disease or symptomatic start iron and folic acid Code(s): D64.9 - ANEMIA, UNSPECIFIED Qualifiers: Anemia type: iron deficiency (4) Essential hypertension Assessment/Plan: patient normotensive continue lisinipril tele monitoring Code(s): I10 - ESSENTIAL (PRIMARY) HYPERTENSION (5) Hx of cardiac pacemaker Assessment/Plan: appreciate cardiology consult questionable upgrade to AICD given low EF Code(s): Z95.0 - PRESENCE OF CARDIAC PACEMAKER (6) S/P CABG (coronary artery bypass graft) Code(s): Z95.1 - PRESENCE OF AORTOCORONARY BYPASS GRAFT (7) Polysubstance (including opioids) dependence without physiological dependence Assessment/Plan: continue thiamin, MVI, and folic acid refer back to [facility] when medically stable-Dr Obrien Code(s): F19.20 - OTHER PSYCHOACTIVE SUBSTANCE DEPENDENCE, UNCOMPLICATED (8) Hx of hyperlipidemia Assessment/Plan: continue atorostatin Code(s): Z86.39 - PERSONAL HISTORY OF ENDO, NUTRITIONAL AND METABOLIC DISEASE (9) Asthma Code(s): J45.909 - UNSPECIFIED ASTHMA, UNCOMPLICATED (10) COPD (chronic obstructive pulmonary disease) Assessment/Plan: continue inhaled steroids/bronchodilators pulmonary consult appreciate BiPap as needed at night Code(s): J44.9 - CHRONIC OBSTRUCTIVE PULMONARY DISEASE, UNSPECIFIED Qualifiers: Emphysema type: unspecified (11) Thoracic aortic aneurysm Assessment/Plan: outpatient surveillance Code(s): I71.2 - THORACIC AORTIC ANEURYSM, WITHOUT RUPTURE (12) Prophylactic measure Assessment/Plan: FEN cardiac diet no fluids needed given low EF monitor electrolytes DVT Proph continue brilinta ambulation ad muna Dispo maintain as in patient full code discharge planning Code(s): Z29.9 - ENCOUNTER FOR PROPHYLACTIC MEASURES, UNSPECIFIED Visit type - Emergency Visit Emergency Visit: Yes ED Registration Date: 05/05/19 Care time: The patient presented to the Emergency Department on the above date and was hospitalized for further evaluation of their emergent condition. - New Patient This patient is new to me today: No - Critical Care Critical Care patient: No - Discharge Referral Referred to [facility] Med P.C.: No
[2019-05-07] MEDS: ASPIRIN COATED 81 MG TABLET.EC PO SCH (09:28)
[2019-05-07] MEDS: FOLIC ACID 1 MG TABLET (FP) PO SCH (09:28)
[2019-05-07] MEDS: LISINOPRIL 20 MG TABLET (FP) PO SCH (09:29)
[2019-05-07] MEDS: TICAGRELOR 90 MG TABLET PO SCH ×2 (09:29→21:25)
[2019-05-07] MEDS: MULTIVITAMINS (DAILY MVI) TABLET (FP) PO SCH (09:29)
[2019-05-07] MEDS: FERROUS SO4 325 MG TABLET (FP) PO SCH ×3 (09:29→17:21)
[2019-05-07] MEDS: THIAMINE HCL 100 MG TABLET (FP) PO SCH (09:30)
[2019-05-07] MEDS: BUDESONIDE/FORMETEROL FUMARATE 160/4.5 mcg INHALER IH SCH ×2 (09:30→21:26)
--- NOTE | 2019-05-07 09:38 | PN ---
Progress Note, Physician Chief Complaint: seen and examined on tele Feeling better, less SOB but still w/ some edema TELE: NSR, sinus tach - Current Medication List Current Medications: Active Medications Albuterol Sulfate (Ventolin 0.083% Nebulizer Soln -) 1 amp NEB Q4H PRN PRN Reason: SHORT OF BREATH/WHEEZING Albuterol/Ipratropium (Duoneb -) 1 amp NEB RQID [facility] Last Admin: 05/07/19 07:52 Dose: 1 amp Aspirin (Ecotrin -) 81 mg PO DAILY [facility] Last Admin: 05/07/19 09:28 Dose: 81 mg Atorvastatin Calcium (Lipitor -) 80 mg PO HS [facility] Last Admin: 05/06/19 21:04 Dose: 80 mg Budesonide/Formoterol Fumarate (Symbicort 160/4.5mcg -) 2 puff IH BID [facility] Last Admin: 05/07/19 09:30 Dose: 2 puff Ferrous Sulfate (Feosol -) 325 mg PO TIDCM [facility] Last Admin: 05/07/19 09:29 Dose: 325 mg Folic Acid (Folic Acid -) 1 mg PO DAILY [facility] Last Admin: 05/07/19 09:28 Dose: 1 mg Furosemide (Lasix Injection -) 40 mg IVPUSH BID@0600,1400 [facility] Last Admin: 05/07/19 07:12 Dose: 40 mg Lisinopril (Prinivil) 5 mg PO DAILY [facility] Last Admin: 05/07/19 09:29 Dose: 5 mg Methylprednisolone Sodium Succinate (Solu-Medrol -) 60 mg IVPUSH Q8H-IV [facility] Last Admin: 05/07/19 09:30 Dose: 60 mg Metoprolol Succinate (Toprol Xl -) 50 mg PO DAILY [facility] Last Admin: 05/07/19 09:29 Dose: 50 mg Montelukast Sodium (Singulair -) 10 mg PO HS [facility] Last Admin: 05/06/19 21:04 Dose: 10 mg Multivitamins/Minerals/Vitamin C (Tab-A-Vit -) 1 tab PO DAILY [facility] Last Admin: 05/07/19 09:29 Dose: 1 tab Thiamine HCl (Vitamin B1 -) 100 mg PO DAILY [facility] Last Admin: 05/07/19 09:30 Dose: 100 mg Ticagrelor (Brilinta -) 90 mg PO BID [facility] Last Admin: 05/07/19 09:29 Dose: 90 mg - Objective Vital Signs: Vital Signs Temperature 97.5 F L 05/07/19 06:00 Pulse Rate 74 05/07/19 06:00 Respiratory Rate 18 05/07/19 06:00 Blood Pressure 101/71 05/07/19 06:00 O2 Sat by Pulse Oximetry (%) 99 05/06/19 21:00 Constitutional: Yes: Calm Cardiovascular: Yes: Regular Rate and Rhythm Respiratory: Yes: CTA Bilaterally (no acitve wheezing) Gastrointestinal: Yes: Soft Edema: Yes Edema: LLE: 2+, RLE: 2+ Neurological: Yes: Alert, Oriented ...Motor Strength: WNL Labs: CBC, BMP 05/06/19 05:50 05/06/19 05:50 INR, PTT INR 1.52 (0.83-1.09) H 05/06/19 05:50 - ....Imaging EKG: Image Reviewed Assessment/Plan Assessment/Plan echo 04/2019 tds, LV mildly dilated, severely reduced LV function, RV nl, bio MVR , mild TR, RVSP elevated 40-50 mmHg, mild EKG: sinus, LVH, no ischemic changes tele: sinus CTA chest: patchy infiltrates, small loculated pleural effusion, s/p CABG, PPM, dilated ascending aorta 4.5 cm, mildly enlarged mediastinal lymph nodes IMP: 1. Acute on chronic systolic CHF 2. CAD 3. History of bio MVR 4. History of Polysubstance Abuse, non-adherence with meds/follow up [place] on chronic HF exacerbation, shortness of breath: - continue IV lasix - monitor daily weights, Cr, lytes - continue ACEI, bb COPD: - steroids, nebs per pulm CAD: - trop neg x 2, EKG unchanged from prior - cont aspirin, statin, ticagrelor - outpatient regimen. Will need further information/ review old records to determine if continued Brilinta is indicated (?timing of last revasc/PCI) PPM: - outpatient followup, review old records. Consideration for upgrade to ICD? Thoracic aorta aneurysm: - outpatient surveillance HTN: - cont home meds HLD: - cont statin
--- NOTE | 2019-05-07 15:00 | PN ---
Progress Note (short form) - Note Progress Note: Still with some congested cough. Less SOB. No hemoptysis. No acute events overnight. Intake & Output 05/04/19 05/05/19 05/06/19 05/07/19 23:59 23:59 23:59 23:59 Intake Total 780 Output Total 2300 650 Balance -1520 -650 Weight 170 lb 165 lb 6.4 oz 168 lb Last Vital Signs Temp Pulse Resp BP Pulse Ox 97.5 F L 74 18 101/71 99 05/07/19 06:00 05/07/19 06:00 05/07/19 06:00 05/07/19 06:00 05/06/19 21:00 Active Medications Albuterol Sulfate (Ventolin 0.083% Nebulizer Soln -) 1 amp NEB Q4H PRN PRN Reason: SHORT OF BREATH/WHEEZING Albuterol/Ipratropium (Duoneb -) 1 amp NEB RQID [facility] Last Admin: 05/07/19 12:18 Dose: 1 amp Aspirin (Ecotrin -) 81 mg PO DAILY [facility] Last Admin: 05/07/19 09:28 Dose: 81 mg Atorvastatin Calcium (Lipitor -) 80 mg PO HS [facility] Last Admin: 05/06/19 21:04 Dose: 80 mg Budesonide/Formoterol Fumarate (Symbicort 160/4.5mcg -) 2 puff IH BID [facility] Last Admin: 05/07/19 09:30 Dose: 2 puff Ferrous Sulfate (Feosol -) 325 mg PO TIDCM [facility] Last Admin: 05/07/19 14:36 Dose: 325 mg Folic Acid (Folic Acid -) 1 mg PO DAILY [facility] Last Admin: 05/07/19 09:28 Dose: 1 mg Furosemide (Lasix Injection -) 40 mg IVPUSH BID@0600,1400 [facility] Last Admin: 05/07/19 14:37 Dose: 40 mg Lisinopril (Prinivil) 5 mg PO DAILY [facility] Last Admin: 05/07/19 09:29 Dose: 5 mg Methylprednisolone Sodium Succinate (Solu-Medrol -) 60 mg IVPUSH Q8H-IV [facility] Last Admin: 05/07/19 09:30 Dose: 60 mg Metoprolol Succinate (Toprol Xl -) 50 mg PO DAILY [facility] Last Admin: 05/07/19 09:29 Dose: 50 mg Montelukast Sodium (Singulair -) 10 mg PO HS [facility] Last Admin: 05/06/19 21:04 Dose: 10 mg Multivitamins/Minerals/Vitamin C (Tab-A-Vit -) 1 tab PO DAILY [facility] Last Admin: 05/07/19 09:29 Dose: 1 tab Thiamine HCl (Vitamin B1 -) 100 mg PO DAILY [facility] Last Admin: 05/07/19 09:30 Dose: 100 mg Ticagrelor (Brilinta -) 90 mg PO BID [facility] Last Admin: 05/07/19 09:29 Dose: 90 mg Constitutional: Yes: NAD Eyes: Yes: Conjunctiva Clear, EOM Intact HENT: Yes: Atraumatic, Normocephalic Neck: Yes: Supple, Trachea Midline Cardiovascular: Yes: Regular Rate and Rhythm, JVD Respiratory: Yes: Scattered Rhonchi, no wheeze ...Clubbing: No Gastrointestinal: Yes: Normal Bowel Sounds, Soft. No: Tenderness Edema: No Neurological: Yes: Alert, Oriented Labs: Problem List - Problems (1) CHF (congestive heart failure) Code(s): I50.9 - HEART FAILURE, UNSPECIFIED (2) CAD (coronary artery disease) Code(s): I25.10 - ATHSCL HEART DISEASE OF [place] CORONARY ARTERY W/O ANG PCTRS Qualifiers: Coronary Disease-Associated Artery/Lesion type: bypass graft (3) COPD (chronic obstructive pulmonary disease) Code(s): J44.9 - CHRONIC OBSTRUCTIVE PULMONARY DISEASE, UNSPECIFIED Qualifiers: Emphysema type: unspecified (4) Essential hypertension Code(s): I10 - ESSENTIAL (PRIMARY) HYPERTENSION (5) S/P CABG (coronary artery bypass graft) Code(s): Z95.1 - PRESENCE OF AORTOCORONARY BYPASS GRAFT Assessment/Plan Decompensated CHF Acute COPD Exacerbation Less likely Pneumonia CAD s/p CABG h/o MVR HTN Hyperlipidemia Polysubstance Abuse - Medrol - IV lasix - monitor urine output, creatinine - ECHO - inhaled bronchodilators standing and PRN - NIPPV to assist in work of breathing - recently completed antibiotic course as outpatient, no fevers or leukocytosis , would monitor off for now - outpt PFTs - DVT prophylaxis - No smoking Dr Bella
[2019-05-07] MEDS: ATORVASTATIN CA 80 MG TABLET (FP) PO SCH (21:25)
[2019-05-07] MEDS: MONTELUKAST NA 10 MG TABLET PO SCH (21:25)
[2019-05-08] MEDS: methylPREDNISolone NA SUCC 40 MG/1 ML VIAL IVPUSH SCH ×3 (02:28→17:25)
[2019-05-08] MEDS: FUROSEMIDE 40 MG/4 ML INJECTABLE VIAL IVPUSH SCH ×2 (06:47→13:24)
[2019-05-08] MEDS: ALBUTEROL SO4 2.5/IPRATROPIUM 0.5 INH SOL 3 ML VIAL.NEB. NEB SCH ×4 (08:23→20:20)
[2019-05-08 08:29] LABS: BASO % 0.2 % (0-2.0); EOS % 0.1 % (0-4.5); HEMATOCRIT 23.8 % (35.4-49); HEMOGLOBIN 7.6 GM/dL (11.7-16.9); LYMPH % 2.6 % (8-40); MCH 25.8 pg (25.7-33.7); MCHC 31.9 g/dl (32.0-35.9); MEAN CELL VOLUME 80.9 fl (80-96); MONO % 1.1 % (3.8-10.2); PLATELET COUNT 188 K/MM3 (134-434); RBC 2.94 M/mm3 (4.00-5.60); RDW 21.9 % (11.9-15.9); WHITE BLOOD COUNT 7.8 K/mm3 (4.0-10.0)
[2019-05-08 08:58] LABS: BILIRUBIN,TOTAL 1.5 mg/dL (0.2-1); BLOOD UREA NITROGEN 22.1 mg/dL (7-18); CALCIUM 8.8 mg/dL (8.5-10.1); MAGNESIUM 2.7 mg/dL (1.8-2.4); POTASSIUM 3.8 mmol/L (3.5-5.1)
--- NOTE | 2019-05-08 09:15 | PN ---
Progress Note, Physician Chief Complaint: He is better but still have some shortness of breath on minimal exertion, - Current Medication List Current Medications: Active Medications Albuterol Sulfate (Ventolin 0.083% Nebulizer Soln -) 1 amp NEB Q4H PRN PRN Reason: SHORT OF BREATH/WHEEZING Last Admin: 05/08/19 04:45 Dose: 1 amp Albuterol/Ipratropium (Duoneb -) 1 amp NEB RQID [facility] Last Admin: 05/07/19 20:45 Dose: 1 amp Aspirin (Ecotrin -) 81 mg PO DAILY [facility] Last Admin: 05/07/19 09:28 Dose: 81 mg Atorvastatin Calcium (Lipitor -) 80 mg PO HS [facility] Last Admin: 05/07/19 21:25 Dose: 80 mg Budesonide/Formoterol Fumarate (Symbicort 160/4.5mcg -) 2 puff IH BID [facility] Last Admin: 05/07/19 21:26 Dose: Not Given Ferrous Sulfate (Feosol -) 325 mg PO TIDCM [facility] Last Admin: 05/07/19 17:21 Dose: 325 mg Folic Acid (Folic Acid -) 1 mg PO DAILY [facility] Last Admin: 05/07/19 09:28 Dose: 1 mg Furosemide (Lasix Injection -) 40 mg IVPUSH BID@0600,1400 [facility] Last Admin: 05/08/19 06:47 Dose: 40 mg Lisinopril (Prinivil) 5 mg PO DAILY [facility] Last Admin: 05/07/19 09:29 Dose: 5 mg Methylprednisolone Sodium Succinate (Solu-Medrol -) 60 mg IVPUSH Q8H-IV [facility] Last Admin: 05/08/19 02:28 Dose: 60 mg Metoprolol Succinate (Toprol Xl -) 50 mg PO DAILY [facility] Last Admin: 05/07/19 09:29 Dose: 50 mg Montelukast Sodium (Singulair -) 10 mg PO HS [facility] Last Admin: 05/07/19 21:25 Dose: 10 mg Multivitamins/Minerals/Vitamin C (Tab-A-Vit -) 1 tab PO DAILY [facility] Last Admin: 05/07/19 09:29 Dose: 1 tab Thiamine HCl (Vitamin B1 -) 100 mg PO DAILY [facility] Last Admin: 05/07/19 09:30 Dose: 100 mg Ticagrelor (Brilinta -) 90 mg PO BID [facility] Last Admin: 05/07/19 21:25 Dose: 90 mg - Objective Vital Signs: Vital Signs Temperature 98.4 F 05/08/19 06:00 Pulse Rate 74 05/08/19 06:00 Respiratory Rate 18 05/08/19 06:00 Blood Pressure 115/67 05/08/19 06:00 O2 Sat by Pulse Oximetry (%) 96 05/07/19 21:00 Constitutional: Yes: No Distress Eyes: Yes: WNL HENT: Yes: WNL Neck: Yes: WNL Cardiovascular: Yes: Regular Rate and Rhythm Respiratory: Yes: Regular, Rales, Rhonchi Gastrointestinal: Yes: WNL Genitourinary: Yes: WNL Musculoskeletal: Yes: WNL Extremities: Yes: WNL Edema: No Integumentary: Yes: WNL Neurological: Yes: WNL Labs: CBC, BMP 05/08/19 06:31 05/08/19 06:31 INR, PTT INR 1.52 (0.83-1.09) H 05/06/19 05:50 Problem List - Problems (1) Anemia Assessment/Plan: he has came down from 8.4 to 7.5 will do w/u including iron studies and b12 level and stool for occult blood Code(s): D64.9 - ANEMIA, UNSPECIFIED (2) CHF (congestive heart failure) Assessment/Plan: lasix and aditya inhibitors Code(s): I50.9 - HEART FAILURE, UNSPECIFIED (3) PNA (pneumonia) Assessment/Plan: He has no fever and normal wbc and will dc his abx Code(s): J18.9 - PNEUMONIA, UNSPECIFIED ORGANISM (4) Polysubstance (including opioids) dependence without physiological dependence Assessment/Plan: he needs f/u rehab Code(s): F19.20 - OTHER PSYCHOACTIVE SUBSTANCE DEPENDENCE, UNCOMPLICATED (5) Thoracic aortic aneurysm Code(s): I71.2 - THORACIC AORTIC ANEURYSM, WITHOUT RUPTURE (6) CAD (coronary artery disease) Assessment/Plan: seen by cardio and will continue his med Code(s): I25.10 - ATHSCL HEART DISEASE OF [place] CORONARY ARTERY W/O ANG PCTRS Qualifiers: Coronary Disease-Associated Artery/Lesion type: bypass graft (7) COPD (chronic obstructive pulmonary disease) Assessment/Plan: he is on nebulizer and steroids and inhaller and improving well Code(s): J44.9 - CHRONIC OBSTRUCTIVE PULMONARY DISEASE, UNSPECIFIED Qualifiers: Emphysema type: unspecified Visit type - Emergency Visit Emergency Visit: Yes ED Registration Date: 05/05/19 Care time: The patient presented to the Emergency Department on the above date and was hospitalized for further evaluation of their emergent condition. - New Patient This patient is new to me today: Yes Date on this admission: 05/08/19 - Critical Care Critical Care patient: No - Discharge Referral Referred to [facility] Med [facility].C.: No
--- NOTE | 2019-05-08 10:03 | PN ---
Progress Note, Physician Chief Complaint: comfortable TELE: NSR, couplet - Current Medication List Current Medications: Active Medications Albuterol Sulfate (Ventolin 0.083% Nebulizer Soln -) 1 amp NEB Q4H PRN PRN Reason: SHORT OF BREATH/WHEEZING Last Admin: 05/08/19 04:45 Dose: 1 amp Albuterol/Ipratropium (Duoneb -) 1 amp NEB RQID [facility] Last Admin: 05/07/19 20:45 Dose: 1 amp Aspirin (Ecotrin -) 81 mg PO DAILY [facility] Last Admin: 05/07/19 09:28 Dose: 81 mg Atorvastatin Calcium (Lipitor -) 80 mg PO HS [facility] Last Admin: 05/07/19 21:25 Dose: 80 mg Budesonide/Formoterol Fumarate (Symbicort 160/4.5mcg -) 2 puff IH BID [facility] Last Admin: 05/07/19 21:26 Dose: Not Given Ferrous Sulfate (Feosol -) 325 mg PO TIDCM [facility] Last Admin: 05/07/19 17:21 Dose: 325 mg Folic Acid (Folic Acid -) 1 mg PO DAILY [facility] Last Admin: 05/07/19 09:28 Dose: 1 mg Furosemide (Lasix Injection -) 40 mg IVPUSH BID@0600,1400 [facility] Last Admin: 05/08/19 06:47 Dose: 40 mg Lisinopril (Prinivil) 5 mg PO DAILY [facility] Last Admin: 05/07/19 09:29 Dose: 5 mg Methylprednisolone Sodium Succinate (Solu-Medrol -) 60 mg IVPUSH Q8H-IV [facility] Last Admin: 05/08/19 02:28 Dose: 60 mg Metoprolol Succinate (Toprol Xl -) 50 mg PO DAILY [facility] Last Admin: 05/07/19 09:29 Dose: 50 mg Montelukast Sodium (Singulair -) 10 mg PO HS [facility] Last Admin: 05/07/19 21:25 Dose: 10 mg Multivitamins/Minerals/Vitamin C (Tab-A-Vit -) 1 tab PO DAILY [facility] Last Admin: 05/07/19 09:29 Dose: 1 tab Thiamine HCl (Vitamin B1 -) 100 mg PO DAILY [facility] Last Admin: 05/07/19 09:30 Dose: 100 mg Ticagrelor (Brilinta -) 90 mg PO BID [facility] Last Admin: 05/07/19 21:25 Dose: 90 mg - Objective Vital Signs: Vital Signs Temperature 98.4 F 05/08/19 06:00 Pulse Rate 74 05/08/19 06:00 Respiratory Rate 18 05/08/19 06:00 Blood Pressure 115/67 05/08/19 06:00 O2 Sat by Pulse Oximetry (%) 96 05/07/19 21:00 Constitutional: Yes: Calm Cardiovascular: Yes: Regular Rate and Rhythm Respiratory: Yes: CTA Bilaterally Gastrointestinal: Yes: Soft Edema: Yes Edema: LLE: 1+, RLE: 1+ Neurological: Yes: Alert, Oriented Labs: CBC, BMP 05/08/19 06:31 05/08/19 06:31 INR, PTT INR 1.52 (0.83-1.09) H 05/06/19 05:50 Laboratory Tests 05/05/19 05/06/19 05/08/19 13:00 01:40 06:31 WBC 7.8 Hgb 7.6 L Plt Count 188 Sodium Potassium BUN Creatinine Magnesium Troponin I < 0.02 < 0.02 05/08/19 06:31 WBC Hgb Plt Count Sodium 139 Potassium 3.8 BUN 22.1 H Creatinine 1.0 Magnesium 2.7 H Troponin I - ....Imaging EKG: Image Reviewed Assessment/Plan IMP: 1. Acute on chronic systolic CHF 2. CAD 3. History of bio MVR 4. History of Polysubstance Abuse, non-adherence with meds/follow up [place] on chronic HF exacerbation, shortness of breath: - continue IV lasix for an additional day, plan to switch to PO tomorrow. - monitor daily weights, Cr, lytes - continue ACEI, bb COPD: - steroids, nebs per pulm CAD: - trop neg x 2, EKG unchanged from prior - cont aspirin, statin, ticagrelor - outpatient regimen. Will need further information/ review old records to determine if continued Brilinta is indicated (?timing of last revasc/PCI) PPM: - outpatient followup, review old records. Consideration for upgrade to ICD? ( compliance is imperative and if patient is not thought to be able to follow closely as outpatient, ICD/upgrade may not be an option). Thoracic aorta aneurysm: - outpatient surveillance HTN: - cont home meds HLD: - cont statin Anemia: -Work up as per PMD
[2019-05-08] MEDS ORDERED: PT OWN MED DRAWER 7, Y5N ONE ×2 (10:23→22:13)
[2019-05-08] MEDS: MULTIVITAMINS (DAILY MVI) TABLET (FP) PO SCH (10:31)
[2019-05-08] MEDS: TICAGRELOR 90 MG TABLET PO SCH ×2 (10:31→23:25)
[2019-05-08] MEDS: LISINOPRIL 20 MG TABLET (FP) PO SCH (10:31)
[2019-05-08] MEDS: FOLIC ACID 1 MG TABLET (FP) PO SCH (10:31)
[2019-05-08] MEDS: FERROUS SO4 325 MG TABLET (FP) PO SCH ×3 (10:32→17:25)
[2019-05-08] MEDS: BUDESONIDE/FORMETEROL FUMARATE 160/4.5 mcg INHALER IH SCH ×3 (10:32→22:23)
[2019-05-08] MEDS: ASPIRIN COATED 81 MG TABLET.EC PO SCH (10:32)
[2019-05-08] MEDS: THIAMINE HCL 100 MG TABLET (FP) PO SCH (10:33)
[2019-05-08 11:19] LABS: ANISOCYTOSIS 1+; MACROCYTOSIS 0; PLATELET ESTIMATE NORMAL
--- NOTE | 2019-05-08 14:48 | PN ---
Progress Note (short form) - Note Progress Note: Still with some congested cough and [place]. No hemoptysis. No acute events overnight. Intake & Output 05/05/19 05/06/19 05/07/19 05/08/19 23:59 23:59 23:59 23:59 Intake Total 780 670 460 Output Total 2300 2100 200 Balance -1520 -1430 260 Weight 170 lb 165 lb 6.4 oz 168 lb 3.2 oz Last Vital Signs Temp Pulse Resp BP Pulse Ox 98.2 F 72 18 121/74 93 L 05/08/19 09:18 05/08/19 09:18 05/08/19 09:18 05/08/19 09:18 05/08/19 10:27 Active Medications Albuterol Sulfate (Ventolin 0.083% Nebulizer Soln -) 1 amp NEB Q4H PRN PRN Reason: SHORT OF BREATH/WHEEZING Last Admin: 05/08/19 04:45 Dose: 1 amp Albuterol/Ipratropium (Duoneb -) 1 amp NEB RQID [facility] Last Admin: 05/08/19 11:59 Dose: Not Given Aspirin (Ecotrin -) 81 mg PO DAILY [facility] Last Admin: 05/08/19 10:32 Dose: 81 mg Atorvastatin Calcium (Lipitor -) 80 mg PO HS [facility] Last Admin: 05/07/19 21:25 Dose: 80 mg Budesonide/Formoterol Fumarate (Symbicort 160/4.5mcg -) 2 puff IH BID [facility] Last Admin: 05/08/19 10:32 Dose: 2 puff Ferrous Sulfate (Feosol -) 325 mg PO TIDCM [facility] Last Admin: 05/08/19 13:24 Dose: 325 mg Folic Acid (Folic Acid -) 1 mg PO DAILY [facility] Last Admin: 05/08/19 10:31 Dose: 1 mg Furosemide (Lasix Injection -) 40 mg IVPUSH BID@0600,1400 [facility] Last Admin: 05/08/19 13:24 Dose: 40 mg Lisinopril (Prinivil) 5 mg PO DAILY [facility] Last Admin: 05/08/19 10:31 Dose: 5 mg Methylprednisolone Sodium Succinate (Solu-Medrol -) 60 mg IVPUSH Q8H-IV [facility] Last Admin: 05/08/19 10:32 Dose: 60 mg Metoprolol Succinate (Toprol Xl -) 50 mg PO DAILY [facility] Last Admin: 05/08/19 10:33 Dose: 50 mg Montelukast Sodium (Singulair -) 10 mg PO HS [facility] Last Admin: 05/07/19 21:25 Dose: 10 mg Multivitamins/Minerals/Vitamin C (Tab-A-Vit -) 1 tab PO DAILY [facility] Last Admin: 05/08/19 10:31 Dose: 1 tab Thiamine HCl (Vitamin B1 -) 100 mg PO DAILY [facility] Last Admin: 05/08/19 10:33 Dose: 100 mg Ticagrelor (Brilinta -) 90 mg PO BID [facility] Last Admin: 05/08/19 10:31 Dose: 90 mg Constitutional: Yes: NAD Eyes: Yes: Conjunctiva Clear, EOM Intact HENT: Yes: Atraumatic, Normocephalic Neck: Yes: Supple, Trachea Midline Cardiovascular: Yes: Regular Rate and Rhythm, JVD Respiratory: Yes: Scattered Rhonchi, no wheeze ...Clubbing: No Gastrointestinal: Yes: Normal Bowel Sounds, Soft. No: Tenderness Edema: No Neurological: Yes: Alert, Oriented Labs: Laboratory Results - last 24 hr 05/08/19 05/08/19 06:31 06:31 WBC 7.8 RBC 2.94 L Hgb 7.6 L Hct 23.8 L MCV 80.9 MCH 25.8 MCHC 31.9 L RDW 21.9 H Plt Count 188 MPV 8.0 Absolute Neuts (auto) 7.5 Neutrophils % 96.0 H D Neutrophils % (Manual) 96.9 H Band Neutrophils % 0.0 Lymphocytes % 2.6 L D Lymphocytes % (Manual) 3.1 L Monocytes % 1.1 L D Monocytes % (Manual) 0 L Eosinophils % 0.1 D Eosinophils % (Manual) 0.0 Basophils % 0.2 Basophils % (Manual) 0.0 Myelocytes % (Man) 0 Promyelocytes % (Man) 0 Blast Cells % (Manual) 0 Nucleated RBC % 0 Metamyelocytes 0 Hypochromia 0 Platelet Estimate Normal Polychromasia 1+ Poikilocytosis 0 Anisocytosis 1+ Microcytosis 1+ Macrocytosis 0 Sodium 139 Potassium 3.8 Chloride 101 Carbon Dioxide 29 Anion Gap 8 BUN 22.1 H Creatinine 1.0 Est GFR (CKD-EPI)AfAm 92.42 Est GFR (CKD-EPI)NonAf 79.75 Random Glucose 144 H Calcium 8.8 Magnesium 2.7 H Ferritin 247.9 Total Bilirubin 1.5 H AST 33 ALT 31 Alkaline Phosphatase 190 H Total Protein 7.0 Albumin 3.0 L Vitamin B12 1904 H Serum Folate 20 H Problem List - Problems (1) CHF (congestive heart failure) Code(s): I50.9 - HEART FAILURE, UNSPECIFIED (2) CAD (coronary artery disease) Code(s): I25.10 - ATHSCL HEART DISEASE OF [place] CORONARY ARTERY W/O ANG PCTRS Qualifiers: Coronary Disease-Associated Artery/Lesion type: bypass graft (3) COPD (chronic obstructive pulmonary disease) Code(s): J44.9 - CHRONIC OBSTRUCTIVE PULMONARY DISEASE, UNSPECIFIED Qualifiers: Emphysema type: unspecified (4) Essential hypertension Code(s): I10 - ESSENTIAL (PRIMARY) HYPERTENSION (5) S/P CABG (coronary artery bypass graft) Code(s): Z95.1 - PRESENCE OF AORTOCORONARY BYPASS GRAFT Assessment/Plan Decompensated CHF Acute COPD Exacerbation Less likely Pneumonia CAD s/p CABG h/o MVR HTN Hyperlipidemia Polysubstance Abuse - Medrol - IV lasix - monitor urine output, creatinine - inhaled bronchodilators standing and PRN - recently completed antibiotic course as outpatient, no fevers or leukocytosis , would monitor off for now - outpt PFTs - DVT prophylaxis - No smoking Dr Bella
[2019-05-08] MEDS: ATORVASTATIN CA 80 MG TABLET (FP) PO SCH (22:19)
[2019-05-08] MEDS: MONTELUKAST NA 10 MG TABLET PO SCH (22:19)
[2019-05-09] MEDS: SENNOSIDES 8.6MG TABLET (FP) PO PRN (00:21)
[2019-05-09] MEDS: methylPREDNISolone NA SUCC 40 MG/1 ML VIAL IVPUSH SCH ×3 (01:07→17:27)
[2019-05-09 04:08] LABS: SERUM IRON SATURATION 20 % (15-55); TOTAL IRON BINDING CAPACITY 253 ug/dL (250-450); UIBC 202 ug/dL (111-343)
[2019-05-09] MEDS: FUROSEMIDE 40 MG/4 ML INJECTABLE VIAL IVPUSH SCH (06:05)
[2019-05-09 07:29] LABS: BASO % 0.1 % (0-2.0); EOS % 0.1 % (0-4.5); HEMATOCRIT 24.8 % (35.4-49); HEMOGLOBIN 7.9 GM/dL (11.7-16.9); MCH 25.7 pg (25.7-33.7); MEAN CELL VOLUME 80.4 fl (80-96); MEAN PLT VOLUME 8.2 fl (7.5-11.1); MONO % 1.1 % (3.8-10.2); NEUT % 95.7 % (42.8-82.8); PLATELET COUNT 213 K/MM3 (134-434); RBC 3.09 M/mm3 (4.00-5.60); RDW 21.8 % (11.9-15.9); WHITE BLOOD COUNT 8.2 K/mm3 (4.0-10.0)
[2019-05-09] MEDS: ALBUTEROL SO4 2.5/IPRATROPIUM 0.5 INH SOL 3 ML VIAL.NEB. NEB SCH ×4 (07:46→20:37)
[2019-05-09 08:09] LABS: ALBUMIN 3.3 g/dl (3.4-5.0); BILIRUBIN,TOTAL 1.7 mg/dL (0.2-1); BLOOD UREA NITROGEN 31.9 mg/dL (7-18); CREATININE 1.2 mg/dL (0.55-1.3); MAGNESIUM 2.6 mg/dL (1.8-2.4); POTASSIUM 3.9 mmol/L (3.5-5.1); TOT PROT 7.6 g/dl (6.4-8.2)
[2019-05-09] MEDS: PIPERACILLIN/TAZOB 4.5 GM 4.5 GM in DEXTROSE 5%-WATER 100 ML IVPB SCH ×3 (08:27→12:53)
[2019-05-09] MEDS ORDERED: PT OWN MED DRAWER 7, Y5N ONE ×2 (09:26→20:24)
[2019-05-09] MEDS: TICAGRELOR 90 MG TABLET PO SCH ×2 (09:39→21:10)
[2019-05-09] MEDS: FERROUS SO4 325 MG TABLET (FP) PO SCH ×3 (09:39→17:27)
[2019-05-09] MEDS: ASPIRIN COATED 81 MG TABLET.EC PO SCH (09:39)
[2019-05-09] MEDS: FOLIC ACID 1 MG TABLET (FP) PO SCH (09:39)
[2019-05-09] MEDS: MULTIVITAMINS (DAILY MVI) TABLET (FP) PO SCH (09:39)
[2019-05-09] MEDS: LISINOPRIL 20 MG TABLET (FP) PO SCH (09:39)
[2019-05-09] MEDS: BUDESONIDE/FORMETEROL FUMARATE 160/4.5 mcg INHALER IH SCH ×2 (09:49→21:11)
[2019-05-09] MEDS: THIAMINE HCL 100 MG TABLET (FP) PO SCH (09:50)
[2019-05-09 09:53] LABS: ANISOCYTOSIS 2+; MACROCYTOSIS 0; PLATELET ESTIMATE NORMAL
--- NOTE | 2019-05-09 11:01 | PN ---
Progress Note, Physician Chief Complaint: Feeling better TELE: NSR, rare PVCs - Current Medication List Current Medications: Active Medications Albuterol Sulfate (Ventolin 0.083% Nebulizer Soln -) 1 amp NEB Q4H PRN PRN Reason: SHORT OF BREATH/WHEEZING Last Admin: 05/08/19 04:45 Dose: 1 amp Albuterol/Ipratropium (Duoneb -) 1 amp NEB RQID [facility] Last Admin: 05/09/19 07:46 Dose: 1 amp Aspirin (Ecotrin -) 81 mg PO DAILY [facility] Last Admin: 05/09/19 09:39 Dose: 81 mg Atorvastatin Calcium (Lipitor -) 80 mg PO HS [facility] Last Admin: 05/08/19 22:19 Dose: 80 mg Budesonide/Formoterol Fumarate (Symbicort 160/4.5mcg -) 2 puff IH BID [facility] Last Admin: 05/09/19 09:49 Dose: 2 puff Ferrous Sulfate (Feosol -) 325 mg PO TIDCM [facility] Last Admin: 05/09/19 09:39 Dose: 325 mg Folic Acid (Folic Acid -) 1 mg PO DAILY [facility] Last Admin: 05/09/19 09:39 Dose: 1 mg Furosemide (Lasix Injection -) 40 mg IVPUSH BID@0600,1400 [facility] Last Admin: 05/09/19 06:05 Dose: 40 mg Lisinopril (Prinivil) 5 mg PO DAILY [facility] Last Admin: 05/09/19 09:39 Dose: 5 mg Methylprednisolone Sodium Succinate (Solu-Medrol -) 60 mg IVPUSH Q8H-IV [facility] Last Admin: 05/09/19 09:41 Dose: 60 mg Metoprolol Succinate (Toprol Xl -) 50 mg PO DAILY [facility] Last Admin: 05/09/19 09:39 Dose: 50 mg Montelukast Sodium (Singulair -) 10 mg PO HS [facility] Last Admin: 05/08/19 22:19 Dose: 10 mg Multivitamins/Minerals/Vitamin C (Tab-A-Vit -) 1 tab PO DAILY [facility] Last Admin: 05/09/19 09:39 Dose: 1 tab Senna (Senna -) 2 tab PO HS PRN PRN Reason: CONSTIPATION Last Admin: 05/09/19 00:21 Dose: 2 tab Thiamine HCl (Vitamin B1 -) 100 mg PO DAILY [facility] Last Admin: 05/09/19 09:50 Dose: 100 mg Ticagrelor (Brilinta -) 90 mg PO BID [facility] Last Admin: 05/09/19 09:39 Dose: 90 mg - Objective Vital Signs: Vital Signs Temperature 97.8 F 05/09/19 09:37 Pulse Rate 91 H 05/09/19 09:37 Respiratory Rate 05/09/19 09:37 Blood Pressure 133/84 05/09/19 09:37 O2 Sat by Pulse Oximetry (%) 95 05/09/19 07:44 Constitutional: Yes: No Distress, Calm Eyes: Yes: Conjunctiva Clear Cardiovascular: Yes: Regular Rate and Rhythm Respiratory: Yes: CTA Bilaterally Gastrointestinal: Yes: Soft Edema: Yes Edema: LLE: 1+, RLE: 1+ Neurological: Yes: Alert, Oriented Labs: CBC, BMP 05/09/19 06:22 05/09/19 06:22 INR, PTT INR 1.52 (0.83-1.09) H 05/06/19 05:50 Laboratory Tests 05/09/19 05/09/19 06:22 06:22 WBC 8.2 Hgb 7.9 L Hct 24.8 L Plt Count 213 Sodium 139 Potassium 3.9 BUN 31.9 H Creatinine 1.2 Magnesium 2.6 H - ....Imaging EKG: Image Reviewed Assessment/Plan IMP: 1. Acute on chronic systolic CHF 2. CAD 3. History of bio MVR 4. History of Polysubstance Abuse, non-adherence with meds/follow up Acute on chronic HF exacerbation, shortness of breath: - Switch to PO Lasix today - monitor daily weights, Cr, lytes - continue ACEI, bb COPD: - steroids, nebs per pulm CAD: - trop neg x 2, EKG unchanged from prior - cont aspirin, statin, ticagrelor - outpatient regimen. Per patient, no PCI within last 12 months. This needs to be verified by review of old records prior to discontinuation of Brilinta. PPM: per patient, it is an ICD - Routine outpatient interrogation. Thoracic aorta aneurysm: - outpatient surveillance HTN: - cont home meds HLD: - cont statin Anemia: -Work up as per PMD
--- NOTE | 2019-05-09 14:04 | PN ---
Progress Note (short form) - Note Progress Note: Still with some congested cough and [place], but a little better. No hemoptysis. No acute events overnight. Intake & Output 05/06/19 05/07/19 05/08/19 05/09/19 23:59 23:59 23:59 23:59 Intake Total 307 480 0567 340 Output Total 2300 2100 500 1200 Balance -1520 -1430 650 -860 Weight 165 lb 6.4 oz 168 lb 3.2 oz 168 lb 6.4 oz Last Vital Signs Temp Pulse Resp BP Pulse Ox 97.8 F 91 H 19 133/84 95 05/09/19 09:37 05/09/19 09:37 05/09/19 09:37 05/09/19 09:37 05/09/19 09:00 Active Medications Albuterol Sulfate (Ventolin 0.083% Nebulizer Soln -) 1 amp NEB Q4H PRN PRN Reason: SHORT OF BREATH/WHEEZING Last Admin: 05/08/19 04:45 Dose: 1 amp Albuterol/Ipratropium (Duoneb -) [address] [facility] Last Admin: 05/09/19 11:45 Dose: 1 amp Aspirin (Ecotrin -) [address] [facility] Last Admin: 05/09/19 09:39 Dose: 81 mg Atorvastatin Calcium (Lipitor -) [address] [facility] Last Admin: 05/08/19 22:19 Dose: 80 mg Budesonide/Formoterol Fumarate (Symbicort 160/4.5mcg -) [address] [facility] Last Admin: 05/09/19 09:49 Dose: 2 puff Ferrous Sulfate (Feosol -) [address] [facility] Last Admin: 05/09/19 13:06 Dose: 325 mg Folic Acid (Folic Acid -) [address] [facility] Last Admin: 05/09/19 09:39 Dose: 1 mg Furosemide (Lasix -) [address] [facility] Lisinopril (Prinivil) [address] [facility] Last Admin: 05/09/19 09:39 Dose: 5 mg Methylprednisolone Sodium Succinate (Solu-Medrol -) 60 [address] IVP[address] Q8H-IV [facility] Last Admin: 05/09/19 09:41 Dose: 60 mg Metoprolol Succinate (Toprol Xl -) [address] [facility] Last Admin: 05/09/19 09:39 Dose: 50 mg Montelukast Sodium (Singulair -) [address] [facility] Last Admin: 05/08/19 22:19 Dose: 10 mg Multivitamins/Minerals/Vitamin C (Tab-A-Vit -) [address] [facility] Last Admin: 05/09/19 09:39 Dose: 1 tab Senna (Senna -) 2 tab PO HS PRN PRN Reason: CONSTIPATION Last Admin: 05/09/19 00:21 Dose: 2 tab Thiamine HCl (Vitamin B1 -) [address] [facility] Last Admin: 05/09/19 09:50 Dose: 100 mg Ticagrelor (Brilinta -) [address] [facility] Last Admin: 05/09/19 09:39 Dose: 90 mg Constitutional: Yes: NAD Eyes: Yes: Conjunctiva Clear, EOM Intact HENT: Yes: Atraumatic, Normocephalic Neck: Yes: Supple, Trachea Midline Cardiovascular: Yes: Regular Rate and Rhythm, JVD Respiratory: Yes: Scattered Rhonchi, no wheeze ...Clubbing: No Gastrointestinal: Yes: Normal Bowel Sounds, Soft. No: Tenderness Edema: No Neurological: Yes: Alert, Oriented Labs: Laboratory Results - last 24 hr 05/08/19 05/09/19 05/09/19 06:31 06:22 06:22 WBC 8.2 RBC 3.09 L Hgb 7.9 L Hct 24.8 L MCV 80.4 MCH 25.7 MCHC 32.0 RDW 21.8 H Plt Count 213 MPV 8.2 Absolute Neuts (auto) 7.9 Neutrophils % 95.7 H Neutrophils % (Manual) 93.1 H Band Neutrophils % 0.0 Lymphocytes % 3.0 L Lymphocytes % (Manual) 5.9 L D Monocytes % 1.1 L Monocytes % (Manual) 0 L Eosinophils % 0.1 Eosinophils % (Manual) 0.0 Basophils % 0.1 Basophils % (Manual) 0.0 Myelocytes % (Man) 0 Promyelocytes % (Man) 0 Blast Cells % (Manual) 0 Nucleated RBC % 0 Metamyelocytes 1 D Hypochromia 0 Platelet Estimate Normal Polychromasia 1+ Poikilocytosis 1+ Anisocytosis 2+ Microcytosis 2+ Macrocytosis 0 Schistocytes 1+ Sodium 139 Potassium 3.9 Chloride 99 Carbon Dioxide 27 Anion Gap 14 BUN 31.9 H Creatinine 1.2 Est GFR (CKD-EPI)AfAm 74.14 Est GFR (CKD-EPI)NonAf 63.97 Random Glucose 145 H Calcium 9.0 Magnesium 2.6 H Iron 51 TIBC 253 Iron Saturation 20 Unsaturated IBC 202 Ferritin 219.1 Total Bilirubin 1.7 H AST 38 H ALT 35 Alkaline Phosphatase 188 H Total Protein 7.6 Albumin 3.3 L Problem List - Problems (1) CHF (congestive heart failure) Code(s): I50.9 - HEART FAILURE, UNSPECIFIED (2) CAD (coronary artery disease) Code(s): I25.10 - ATHSCL HEART DISEASE OF [place] CORONARY ARTERY W/O ANG PCTRS Qualifiers: Coronary Disease-Associated Artery/Lesion type: bypass graft (3) COPD (chronic obstructive pulmonary disease) Code(s): J44.9 - CHRONIC OBSTRUCTIVE PULMONARY DISEASE, UNSPECIFIED Qualifiers: Emphysema type: unspecified (4) Essential hypertension Code(s): I10 - ESSENTIAL (PRIMARY) HYPERTENSION (5) S/P CABG (coronary artery bypass graft) Code(s): Z95.1 - PRESENCE OF AORTOCORONARY BYPASS GRAFT Assessment/Plan Decompensated CHF Acute COPD Exacerbation Less likely Pneumonia CAD s/p CABG h/o MVR HTN Hyperlipidemia Polysubstance Abuse - Reduce Medrol - IV lasix - monitor urine output, creatinine - inhaled bronchodilators standing and PRN - recently completed antibiotic course as outpatient, no fevers or leukocytosis , would monitor off for now - outpt PFTs - DVT prophylaxis - No smoking Dr Bella
[2019-05-09] MEDS: MONTELUKAST NA 10 MG TABLET PO SCH (21:10)
[2019-05-09] MEDS: ATORVASTATIN CA 80 MG TABLET (FP) PO SCH (21:10)
--- NOTE | 2019-05-09 23:58 | PN ---
Progress Note, Physician Chief Complaint: Shortness of Breath History of Present Illness: 64yo male with h/o HTN, hyperlipidemia, polysubstance abuse, CAD s/p CABG s/pMVR , CHF, COPD, who presented to the ED from [facility] for SHOB and hypoxia. Denies CP, Fever, Chill, n/v. PT states he is feeling better but still feels short of breath. Currently on O2 - Current Medication List Current Medications: Active Medications Albuterol Sulfate (Ventolin 0.083% Nebulizer Soln -) 1 amp NEB Q4H PRN PRN Reason: SHORT OF BREATH/WHEEZING Last Admin: 05/08/19 04:45 Dose: 1 amp Albuterol/Ipratropium (Duoneb -) 1 amp NEB RQID [facility] Last Admin: 05/09/19 20:37 Dose: 1 amp Aspirin (Ecotrin -) 81 mg PO DAILY [facility] Last Admin: 05/09/19 09:39 Dose: 81 mg Atorvastatin Calcium (Lipitor -) 80 mg PO HS [facility] Last Admin: 05/09/19 21:10 Dose: 80 mg Budesonide/Formoterol Fumarate (Symbicort 160/4.5mcg -) 2 puff IH BID [facility] Last Admin: 05/09/19 21:11 Dose: Not Given Ferrous Sulfate (Feosol -) 325 mg PO TIDCM [facility] Last Admin: 05/09/19 17:27 Dose: 325 mg Folic Acid (Folic Acid -) 1 mg PO DAILY [facility] [place] Last Admin: 05/09/19 09:39 Dose: 1 mg Furosemide (Lasix -) 60 mg PO DAILY [facility] Lisinopril (Prinivil) 5 mg PO DAILY [facility] Last Admin: 05/09/19 09:39 Dose: 5 mg Methylprednisolone Sodium Succinate (Solu-Medrol -) 40 mg IVPUSH Q8H-IV [facility] Last Admin: 05/09/19 17:27 Dose: 40 mg Metoprolol Succinate (Toprol Xl -) 50 mg PO DAILY [facility] [place] Last Admin: 05/09/19 09:39 Dose: 50 mg Montelukast Sodium (Singulair -) 10 mg PO HS [facility] [place] Last Admin: 05/09/19 21:10 Dose: 10 mg Multivitamins/Minerals/Vitamin C (Tab-A-Vit -) 1 tab PO DAILY [facility] [place] Last Admin: 05/09/19 09:39 Dose: 1 tab Senna (Senna -) 2 tab PO HS PRN PRN Reason: CONSTIPATION Last Admin: 05/09/19 00:21 Dose: 2 tab Thiamine HCl (Vitamin B1 -) 100 mg PO DAILY [facility] [place] Last Admin: 05/09/19 09:50 Dose: 100 mg Ticagrelor (Brilinta -) 90 mg PO BID [facility] Last Admin: 05/09/19 21:10 Dose: 90 mg - Objective Vital Signs: Vital Signs Temperature 97.5 F L 05/09/19 22:00 Pulse Rate 86 05/09/19 22:00 Respiratory Rate 20 05/09/19 22:00 Blood Pressure 99/57 L 05/09/19 22:00 O2 Sat by Pulse Oximetry (%) 98 05/09/19 21:14 Constitutional: Yes: Well Nourished, Calm, Other (Gets SHOB when he speaks) HENT: Yes: WNL, Atraumatic, Normocephalic Neck: Yes: Supple, Trachea Midline Cardiovascular: Yes: WNL, Regular Rate and Rhythm Respiratory: Yes: WNL, Regular Gastrointestinal: Yes: WNL, Normal Bowel Sounds, Soft, Tenderness ...Rectal Exam: Yes: Deferred Genitourinary: Yes: WNL Extremities: Yes: WNL Edema: No Peripheral Pulses WNL: Yes Integumentary: Yes: WNL Neurological: Yes: WNL, Alert, Oriented Psychiatric: Yes: WNL, Alert, Oriented Labs: CBC, BMP 05/09/19 06:22 05/09/19 06:22 INR, PTT INR 1.52 (0.83-1.09) H 05/06/19 05:50 Problem List - Problems (1) CHF (congestive heart failure) Assessment/Plan: Continue Lasix PO and ROVERTO Inhibitors Code(s): I50.9 - HEART FAILURE, UNSPECIFIED (2) PNA (pneumonia) Assessment/Plan: Completed ABX regime No fever and normal WBC Code(s): J18.9 - PNEUMONIA, UNSPECIFIED ORGANISM (3) Polysubstance (including opioids) dependence without physiological dependence Assessment/Plan: Needs to follow up with Rehab Code(s): F19.20 - OTHER PSYCHOACTIVE SUBSTANCE DEPENDENCE, UNCOMPLICATED (4) Prophylactic measure Code(s): Z29.9 - ENCOUNTER FOR PROPHYLACTIC MEASURES, UNSPECIFIED (5) Anemia Code(s): D64.9 - ANEMIA, UNSPECIFIED Qualifiers: Anemia type: iron deficiency (6) CAD (coronary artery disease) Assessment/Plan: Cardio consulted- will continue med Code(s): I25.10 - ATHSCL HEART DISEASE OF [place] CORONARY ARTERY W/O ANG PCTRS Qualifiers: Coronary Disease-Associated Artery/Lesion type: bypass graft (7) COPD (chronic obstructive pulmonary disease) Assessment/Plan: Consulted by Pulmonary -Continue Nebs, steroids Code(s): J44.9 - CHRONIC OBSTRUCTIVE PULMONARY DISEASE, UNSPECIFIED Qualifiers: Emphysema type: unspecified (8) Essential hypertension Code(s): I10 - ESSENTIAL (PRIMARY) HYPERTENSION Visit type - Emergency Visit Emergency Visit: Yes ED Registration Date: 05/05/19 Care time: The patient presented to the Emergency Department on the above date and was hospitalized for further evaluation of their emergent condition. - New Patient This patient is new to me today: No - Critical Care Critical Care patient: No
[2019-05-10] MEDS: methylPREDNISolone NA SUCC 40 MG/1 ML VIAL IVPUSH SCH ×2 (01:24→09:48)
[2019-05-10] MEDS: ALBUTEROL SO4 2.5/IPRATROPIUM 0.5 INH SOL 3 ML VIAL.NEB. NEB SCH ×4 (07:25→20:42)
[2019-05-10 07:28] LABS: EOS % 0.2 % (0-4.5); HEMATOCRIT 25.4 % (35.4-49); HEMOGLOBIN 7.9 GM/dL (11.7-16.9); LYMPH % 3.9 % (8-40); MCH 25.7 pg (25.7-33.7); MCHC 31.2 g/dl (32.0-35.9); MEAN CELL VOLUME 82.2 fl (80-96); MEAN PLT VOLUME 8.2 fl (7.5-11.1); MONO % 1.3 % (3.8-10.2); NEUT % 94.6 % (42.8-82.8); PLATELET COUNT 207 K/MM3 (134-434); RBC 3.09 M/mm3 (4.00-5.60); RDW 22.1 % (11.9-15.9); WHITE BLOOD COUNT 9.1 K/mm3 (4.0-10.0)
--- NOTE | 2019-05-10 08:22 | PN ---
Progress Note, Physician Chief Complaint: weight is down to 165 No new complaints TELE:NSR w/ 3 beats NSVT - Current Medication List Current Medications: Active Medications Albuterol Sulfate (Ventolin 0.083% Nebulizer Soln -) 1 amp NEB Q4H PRN PRN Reason: SHORT OF BREATH/WHEEZING Last Admin: 05/08/19 04:45 Dose: 1 amp Albuterol/Ipratropium (Duoneb -) 1 amp NEB RQID [facility] Last Admin: 05/09/19 20:37 Dose: 1 amp Aspirin (Ecotrin -) 81 mg PO DAILY [facility] Last Admin: 05/09/19 09:39 Dose: 81 mg Atorvastatin Calcium (Lipitor -) 80 mg PO HS [facility] Last Admin: 05/09/19 21:10 Dose: 80 mg Budesonide/Formoterol Fumarate (Symbicort 160/4.5mcg -) 2 puff IH BID [facility] Last Admin: 05/09/19 21:11 Dose: Not Given Ferrous Sulfate (Feosol -) 325 mg PO TIDCM [facility] Last Admin: 05/09/19 17:27 Dose: 325 mg Folic Acid (Folic Acid -) 1 mg PO DAILY [facility] Last Admin: 05/09/19 09:39 Dose: 1 mg Furosemide (Lasix -) 60 mg PO DAILY [facility] Lisinopril (Prinivil) 5 mg PO DAILY [facility] Last Admin: 05/09/19 09:39 Dose: 5 mg Methylprednisolone Sodium Succinate (Solu-Medrol -) 40 mg IVPUSH Q8H-IV [facility] Last Admin: 05/10/19 01:24 Dose: 40 mg Metoprolol Succinate (Toprol Xl -) 50 mg PO DAILY [facility] Last Admin: 05/09/19 09:39 Dose: 50 mg Montelukast Sodium (Singulair -) 10 mg PO HS [facility] Last Admin: 05/09/19 21:10 Dose: 10 mg Multivitamins/Minerals/Vitamin C (Tab-A-Vit -) 1 tab PO DAILY [facility] Last Admin: 05/09/19 09:39 Dose: 1 tab Senna (Senna -) 2 tab PO HS PRN PRN Reason: CONSTIPATION Last Admin: 05/09/19 00:21 Dose: 2 tab Thiamine HCl (Vitamin B1 -) 100 mg PO DAILY [facility] Last Admin: 05/09/19 09:50 Dose: 100 mg Ticagrelor (Brilinta -) 90 mg PO BID [facility] Last Admin: 05/09/19 21:10 Dose: 90 mg - Objective Vital Signs: Vital Signs Temperature 98.1 F 05/10/19 06:00 Pulse Rate 74 05/10/19 06:00 Respiratory Rate 20 05/10/19 06:00 Blood Pressure 107/60 05/10/19 06:00 O2 Sat by Pulse Oximetry (%) 92 L 05/10/19 06:18 Constitutional: Yes: No Distress Cardiovascular: Yes: Regular Rate and Rhythm, JVD Respiratory: Yes: Other (slight decreased breath sounds at bases) Gastrointestinal: Yes: Soft Edema: Yes Edema: LLE: 1+, RLE: 1+ Neurological: Yes: Alert Labs: CBC, BMP 05/10/19 05:55 05/09/19 06:22 INR, PTT INR 1.52 (0.83-1.09) H 05/06/19 05:50 Laboratory Tests 05/09/19 05/10/19 06:22 05:55 WBC 9.1 Plt Count 207 Sodium 139 Potassium 3.9 Creatinine 1.2 Magnesium 2.6 H - ....Imaging EKG: Image Reviewed Assessment/Plan IMP: 1. Acute on chronic systolic CHF 2. CAD 3. History of bio MVR 4. History of Polysubstance Abuse, non-adherence with meds/follow up. Acute on chronic HF exacerbation, shortness of breath: - Switched to PO Lasix: increase to 80mg daily - monitor daily weights, Cr, lytes - continue ACEI, bb COPD: - steroids, nebs per pulm CAD: - trop neg x 2, EKG unchanged from prior - cont aspirin, statin, ticagrelor - outpatient regimen. Per patient, no PCI within last 12 months. This needs to be verified by review of old records prior to discontinuation of Brilinta. 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 ICD: Patient card indicates he has a [employer] ICD - Routine outpatient interrogation. Thoracic aorta aneurysm: - outpatient surveillance HTN: - cont home meds HLD: - cont statin
[2019-05-10] MEDS: FERROUS SO4 325 MG TABLET (FP) PO SCH ×3 (08:39→17:50)
[2019-05-10 09:16] LABS: ANISOCYTOSIS 2+; MACROCYTOSIS 0; PLATELET ESTIMATE NORMAL; TEAR DROP CELLS 1+
[2019-05-10] MEDS ORDERED: PT OWN MED DRAWER 7, Y5N ONE ×2 (09:41→21:13)
[2019-05-10] MEDS: MULTIVITAMINS (DAILY MVI) TABLET (FP) PO SCH (09:48)
[2019-05-10] MEDS: ASPIRIN COATED 81 MG TABLET.EC PO SCH (09:48)
[2019-05-10] MEDS: LISINOPRIL 20 MG TABLET (FP) PO SCH (09:48)
[2019-05-10] MEDS: FOLIC ACID 1 MG TABLET (FP) PO SCH (09:48)
[2019-05-10] MEDS: FUROSEMIDE 40 MG TABLET (FP) PO SCH (09:48)
[2019-05-10] MEDS: THIAMINE HCL 100 MG TABLET (FP) PO SCH (09:49)
[2019-05-10] MEDS: TICAGRELOR 90 MG TABLET PO SCH ×2 (09:49→21:22)
[2019-05-10] MEDS: BUDESONIDE/FORMETEROL FUMARATE 160/4.5 mcg INHALER IH SCH ×2 (09:50→21:21)
[2019-05-10] MEDS ORDERED: FUROSEMIDE 20 MG TABLET (FP) PO SCH (10:00)
--- NOTE | 2019-05-10 10:45 | PN ---
Progress Note, Physician History of Present Illness: PULMONARY ALERT,FEELING BETTER,SOB IMPROVING,LESS CONGESTION,-CP - Current Medication List Current Medications: Active Medications Albuterol Sulfate (Ventolin 0.083% Nebulizer Soln -) 1 amp NEB Q4H PRN PRN Reason: SHORT OF BREATH/WHEEZING Last Admin: 05/08/19 04:45 Dose: 1 amp Albuterol/Ipratropium (Duoneb -) 1 amp NEB RQID [facility] Last Admin: 05/10/19 07:25 Dose: 1 amp Aspirin (Ecotrin -) 81 mg PO DAILY [facility] Last Admin: 05/10/19 09:48 Dose: 81 mg Atorvastatin Calcium (Lipitor -) 80 mg PO HS [facility] Last Admin: 05/09/19 21:10 Dose: 80 mg Budesonide/Formoterol Fumarate (Symbicort 160/4.5mcg -) 2 puff IH BID [facility] Last Admin: 05/10/19 09:50 Dose: 2 puff Ferrous Sulfate (Feosol -) 325 mg PO TIDCM [facility] Last Admin: 05/10/19 08:39 Dose: 325 mg Folic Acid (Folic Acid -) 1 mg PO DAILY [facility] Last Admin: 05/10/19 09:48 Dose: 1 mg Furosemide (Lasix -) 80 mg PO DAILY [facility] Last Admin: 05/10/19 09:48 Dose: 80 mg Lisinopril (Prinivil) 5 mg PO DAILY [facility] Last Admin: 05/10/19 09:48 Dose: 5 mg Methylprednisolone Sodium Succinate (Solu-Medrol -) 40 mg IVPUSH Q8H-IV [facility] Last Admin: 05/10/19 09:48 Dose: 40 mg Metoprolol Succinate (Toprol Xl -) 50 mg PO DAILY [facility] Last Admin: 05/10/19 09:49 Dose: 50 mg Montelukast Sodium (Singulair -) 10 mg PO HS [facility] Last Admin: 05/09/19 21:10 Dose: 10 mg Multivitamins/Minerals/Vitamin C (Tab-A-Vit -) 1 tab PO DAILY [facility] Last Admin: 05/10/19 09:48 Dose: 1 tab Senna (Senna -) 2 tab PO HS PRN PRN Reason: CONSTIPATION Last Admin: 05/09/19 00:21 Dose: 2 tab Thiamine HCl (Vitamin B1 -) 100 mg PO DAILY [facility] Last Admin: 05/10/19 09:49 Dose: 100 mg Ticagrelor (Brilinta -) 90 mg PO BID [facility] Last Admin: 05/10/19 09:49 Dose: 90 mg - Objective Vital Signs: Vital Signs Temperature 98.4 F 05/10/19 10:00 Pulse Rate 86 05/10/19 10:00 Respiratory Rate 20 05/10/19 10:00 Blood Pressure 112/60 05/10/19 10:00 O2 Sat by Pulse Oximetry (%) 92 L 05/10/19 06:18 Constitutional: Yes: Well Nourished, Calm Eyes: Yes: WNL HENT: Yes: WNL Neck: Yes: WNL Cardiovascular: Yes: Regular Rate and Rhythm, S1, S2 Respiratory: Yes: Rhonchi (FEW SCATTERED RHONCHI) Gastrointestinal: Yes: Normal Bowel Sounds, Soft Extremities: Yes: WNL Edema: No Labs: CBC, BMP 05/10/19 05:55 INR 1.52 (0.83-1.09) H 05/06/19 05:50 Assessment/Plan Problem List - Problems (1) CHF (congestive heart failure) Code(s): I50.9 - HEART FAILURE, UNSPECIFIED (2) CAD (coronary artery disease) Code(s): I25.10 - ATHSCL HEART DISEASE OF [place] CORONARY ARTERY W/O ANG PCTRS Qualifiers: Coronary Disease-Associated Artery/Lesion type: bypass graft (3) COPD (chronic obstructive pulmonary disease) Code(s): J44.9 - CHRONIC OBSTRUCTIVE PULMONARY DISEASE, UNSPECIFIED Qualifiers: Emphysema type: unspecified (4) Essential hypertension Code(s): I10 - ESSENTIAL (PRIMARY) HYPERTENSION (5) S/P CABG (coronary artery bypass graft) Code(s): Z95.1 - PRESENCE OF AORTOCORONARY BYPASS GRAFT Assessment/Plan Decompensated CHF improving Acute COPD Exacerbation improving Less likely Pneumonia CAD s/p CABG h/o MVR HTN Hyperlipidemia Polysubstance Abuse - Medrol taper - IV lasix - monitor urine output, creatinine - inhaled bronchodilators standing and PRN - outpt PFTs - DVT prophylaxis DR BEATTY
[2019-05-10 11:26] LABS: BLOOD UREA NITROGEN 31.6 mg/dL (7-18); CREATININE 1.1 mg/dL (0.55-1.3); MAGNESIUM 2.8 mg/dL (1.8-2.4)
--- NOTE | 2019-05-10 12:21 | PN ---
Progress Note, Physician Chief Complaint: SOB History of Present Illness: The patient is a 64 year old male, with a significant past medical history of polysubstance abuse (alcohol and cocaine, hx of withdrawal seizures), asthma, HTN, HLD, CAD (s/p mitral valve replacement 93, CABG 05, and pacemaker 09) CHF, and Aortic Aneurysm (ascending aorta, distal abdominal aorta, left common iliac artery, left internal iliac artery), who presented to the emergency department with worsening shortness of breath. As per EMR and patient, he was evaluated at [facility] in the [place] on 04/19 at which time he was discharged to [facility] on 04/29 on 5 days of Augmentin 875/125 BID and Doxycycline 100 MG BID (compliant). Patient notes his shortness of breath has not improved, prompting his arrival to the ED. Per the EMR, pt was hypoxic to 85 % at [facility] prior to admission - Current Medication List Current Medications: Active Medications Albuterol Sulfate (Ventolin 0.083% Nebulizer Soln -) 1 amp NEB Q4H PRN PRN Reason: SHORT OF BREATH/WHEEZING Last Admin: 05/08/19 04:45 Dose: 1 amp Albuterol/Ipratropium (Duoneb -) 1 amp NEB RQID [facility] Last Admin: 05/10/19 07:25 Dose: 1 amp Aspirin (Ecotrin -) 81 mg PO DAILY [facility] Last Admin: 05/10/19 09:48 Dose: 81 mg Atorvastatin Calcium (Lipitor -) 80 mg PO HS [facility] Last Admin: 05/09/19 21:10 Dose: 80 mg Budesonide/Formoterol Fumarate (Symbicort 160/4.5mcg -) 2 puff IH BID [facility] Last Admin: 05/10/19 09:50 Dose: 2 puff Ferrous Sulfate (Feosol -) 325 mg PO TIDCM [facility] Last Admin: 05/10/19 08:39 Dose: 325 mg Folic Acid (Folic Acid -) 1 mg PO DAILY [facility] Last Admin: 05/10/19 09:48 Dose: 1 mg Furosemide (Lasix -) 80 mg PO DAILY [facility] Last Admin: 05/10/19 09:48 Dose: 80 mg Lisinopril (Prinivil) 5 mg PO DAILY [facility] Last Admin: 05/10/19 09:48 Dose: 5 mg Methylprednisolone Sodium Succinate (Solu-Medrol -) 40 mg IVPUSH BID [facility] Metoprolol Succinate (Toprol Xl -) 50 mg PO DAILY [facility] Last Admin: 05/10/19 09:49 Dose: 50 mg Montelukast Sodium (Singulair -) 10 mg PO HS [facility] Last Admin: 05/09/19 21:10 Dose: 10 mg Multivitamins/Minerals/Vitamin C (Tab-A-Vit -) 1 tab PO DAILY [facility] Last Admin: 05/10/19 09:48 Dose: 1 tab Senna (Senna -) 2 tab PO HS PRN PRN Reason: CONSTIPATION Last Admin: 05/09/19 00:21 Dose: 2 tab Thiamine HCl (Vitamin B1 -) 100 mg PO DAILY [facility] Last Admin: 05/10/19 09:49 Dose: 100 mg Ticagrelor (Brilinta -) 90 mg PO BID [facility] Last Admin: 05/10/19 09:49 Dose: 90 mg - Objective Vital Signs: Vital Signs Temperature 98.4 F 05/10/19 10:00 Pulse Rate 86 05/10/19 10:00 Respiratory Rate 20 05/10/19 10:00 Blood Pressure 112/60 05/10/19 10:00 O2 Sat by Pulse Oximetry (%) 94 L 05/10/19 11:18 Constitutional: Yes: Well Nourished, No Distress, Calm Eyes: Yes: WNL, Conjunctiva Clear, EOM Intact HENT: Yes: WNL, Atraumatic, Normocephalic Neck: Yes: WNL, Supple, Trachea Midline Cardiovascular: Yes: WNL, Regular Rate and Rhythm Respiratory: Yes: WNL, Regular, CTA Bilaterally, Diminished (at bases) Gastrointestinal: Yes: WNL, Normal Bowel Sounds, Soft ...Rectal Exam: Yes: Deferred Genitourinary: Yes: WNL Musculoskeletal: Yes: WNL Extremities: Yes: WNL Edema: LLE: 1+, RLE: 1+ Peripheral Pulses WNL: Yes Integumentary: Yes: WNL Neurological: Yes: WNL, Alert, Oriented ...Motor Strength: WNL Psychiatric: Yes: WNL, Alert, Oriented Labs: CBC, BMP 05/10/19 05:55 05/10/19 05:55 INR, PTT INR 1.52 (0.83-1.09) H 05/06/19 05:50 Problem List - Problems (1) CHF (congestive heart failure) Assessment/Plan: Decompensated CHF continue lasix 80mg dialy TTE with global hypokenesis, EF 25-30% Cardiology consult appreciated Code(s): I50.9 - HEART FAILURE, UNSPECIFIED (2) PNA (pneumonia) Assessment/Plan: -CXR suggestive of more CHF decomepsation vs Pna -no leukocytosis, afebrile, DC abx and will monitor off -appreciate Pulmonary recommendations -Suppplental O2 NC -Duo Nebs prn -Maintain 02 Sat 92% on Supp o2 Code(s): J18.9 - PNEUMONIA, UNSPECIFIED ORGANISM (3) Anemia Assessment/Plan: monitor CBC transfuse for hgb 7 given cardiac disease or symptomatic start iron and folic acid Code(s): D64.9 - ANEMIA, UNSPECIFIED Qualifiers: Anemia type: iron deficiency (4) Essential hypertension Assessment/Plan: patient normotensive continue lisinipril tele monitoring Code(s): I10 - ESSENTIAL (PRIMARY) HYPERTENSION (5) Hx of cardiac pacemaker Assessment/Plan: appreciate cardiology consult confirmed that device is an AICD Code(s): Z95.0 - PRESENCE OF CARDIAC PACEMAKER (6) S/P CABG (coronary artery bypass graft) Code(s): Z95.1 - PRESENCE OF AORTOCORONARY BYPASS GRAFT (7) Polysubstance (including opioids) dependence without physiological dependence Assessment/Plan: continue thiamine, MVI, and folic acid refer back to [facility] when medically stable-Dr Obrien Code(s): F19.20 - OTHER PSYCHOACTIVE SUBSTANCE DEPENDENCE, UNCOMPLICATED (8) Hx of hyperlipidemia Assessment/Plan: continue atorvastatin Code(s): Z86.39 - PERSONAL HISTORY OF ENDO, NUTRITIONAL AND METABOLIC DISEASE (9) Asthma Code(s): J45.909 - UNSPECIFIED ASTHMA, UNCOMPLICATED (10) COPD (chronic obstructive pulmonary disease) Assessment/Plan: continue inhaled steroids as taper/bronchodilators pulmonary consult appreciate BiPap as needed at night pre/psot oxygenation to determine home O2 Code(s): J44.9 - CHRONIC OBSTRUCTIVE PULMONARY DISEASE, UNSPECIFIED Qualifiers: Emphysema type: unspecified (11) Thoracic aortic aneurysm Assessment/Plan: outpatient surveillance Code(s): I71.2 - THORACIC AORTIC ANEURYSM, WITHOUT RUPTURE (12) Prophylactic measure Assessment/Plan: FEN cardiac diet no fluids needed given low EF monitor electrolytes DVT Proph continue brilinta ambulation ad muna Dispo maintain as in patient full code discharge planning Code(s): Z29.9 - ENCOUNTER FOR PROPHYLACTIC MEASURES, UNSPECIFIED Visit type - Emergency Visit Emergency Visit: Yes ED Registration Date: 05/05/19 Care time: The patient presented to the Emergency Department on the above date and was hospitalized for further evaluation of their emergent condition. - New Patient This patient is new to me today: No - Critical Care Critical Care patient: No - Discharge Referral Referred to [facility] No
[2019-05-10] MEDS ORDERED: METOLAZONE 2.5 MG TABLET (FP) PO ONE (15:11)
[2019-05-10] MEDS: ATORVASTATIN CA 80 MG TABLET (FP) PO SCH (21:22)
[2019-05-10] MEDS: MONTELUKAST NA 10 MG TABLET PO SCH (21:22)
[2019-05-11 06:48] LABS: BASO % 0.4 % (0-2.0); EOS % 0.4 % (0-4.5); HEMOGLOBIN 7.6 GM/dL (11.7-16.9); LYMPH % 8.6 % (8-40); MCHC 31.5 g/dl (32.0-35.9); MEAN CELL VOLUME 82.6 fl (80-96); MEAN PLT VOLUME 7.9 fl (7.5-11.1); MONO % 3.9 % (3.8-10.2); NEUT % 86.7 % (42.8-82.8); PLATELET COUNT 216 K/MM3 (134-434); RBC 2.91 M/mm3 (4.00-5.60); RDW 22.1 % (11.9-15.9); WHITE BLOOD COUNT 13.4 K/mm3 (4.0-10.0)
[2019-05-11 07:31] LABS: BILIRUBIN,TOTAL 1.8 mg/dL (0.2-1); BLOOD UREA NITROGEN 30.7 mg/dL (7-18); CALCIUM 8.9 mg/dL (8.5-10.1); MAGNESIUM 2.7 mg/dL (1.8-2.4); POTASSIUM 4.3 mmol/L (3.5-5.1); TOT PROT 6.7 g/dl (6.4-8.2)
--- NOTE | 2019-05-11 07:50 | PN ---
Progress Note, Physician Chief Complaint: SOB History of Present Illness: The patient is a 64 year old male, with a significant past medical history of polysubstance abuse (alcohol and cocaine, hx of withdrawal seizures), asthma, HTN, HLD, CAD (s/p mitral valve replacement 93, CABG 05, and pacemaker 09) CHF, and Aortic Aneurysm (ascending aorta, distal abdominal aorta, left common iliac artery, left internal iliac artery), who presented to the emergency department with worsening shortness of breath. As per EMR and patient, he was evaluated at [facility] in the [place] on 04/19 at which time he was discharged to [facility] on 04/29 on 5 days of Augmentin 875/125 BID and Doxycycline 100 MG BID (compliant). Patient notes his shortness of breath has not improved, prompting his arrival to the ED. Per the EMR, pt was hypoxic to 85 % at [facility] prior to admission - Current Medication List Current Medications: Active Medications Albuterol Sulfate (Ventolin 0.083% Nebulizer Soln -) 1 amp NEB Q4H PRN PRN Reason: SHORT OF BREATH/WHEEZING Last Admin: 05/08/19 04:45 Dose: 1 amp Albuterol/Ipratropium (Duoneb -) 1 amp NEB RQID [facility] Last Admin: 05/10/19 20:42 Dose: 1 amp Aspirin (Ecotrin -) 81 mg PO DAILY [facility] Last Admin: 05/10/19 09:48 Dose: 81 mg Atorvastatin Calcium (Lipitor -) 80 mg PO HS [facility] Last Admin: 05/10/19 21:22 Dose: 80 mg Budesonide/Formoterol Fumarate (Symbicort 160/4.5mcg -) 2 puff IH BID [facility] Last Admin: 05/10/19 21:21 Dose: 2 puff Ferrous Sulfate (Feosol -) 325 mg PO TIDCM [facility] Last Admin: 05/10/19 17:50 Dose: 325 mg Folic Acid (Folic Acid -) 1 mg PO DAILY [facility] Last Admin: 05/10/19 09:48 Dose: 1 mg Furosemide (Lasix -) 80 mg PO DAILY [facility] Last Admin: 05/10/19 09:48 Dose: 80 mg Lisinopril (Prinivil) 5 mg PO DAILY [facility] Last Admin: 05/10/19 09:48 Dose: 5 mg Methylprednisolone Sodium Succinate (Solu-Medrol -) 40 mg IVPUSH BID [facility] Metolazone (Zaroxolyn -) 2.5 mg PO Q2D@0930 [facility] Metoprolol Succinate (Toprol Xl -) 50 mg PO DAILY [facility] Last Admin: 05/10/19 09:49 Dose: 50 mg Montelukast Sodium (Singulair -) 10 mg PO HS [facility] Last Admin: 05/10/19 21:22 Dose: 10 mg Multivitamins/Minerals/Vitamin C (Tab-A-Vit -) 1 tab PO DAILY [facility] Last Admin: 05/10/19 09:48 Dose: 1 tab Senna (Senna -) 2 tab PO HS PRN PRN Reason: CONSTIPATION Last Admin: 05/09/19 00:21 Dose: 2 tab Thiamine HCl (Vitamin B1 -) 100 mg PO DAILY [facility] Last Admin: 05/10/19 09:49 Dose: 100 mg Ticagrelor (Brilinta -) 90 mg PO BID [facility] Last Admin: 05/10/19 21:22 Dose: 90 mg - Objective Vital Signs: Vital Signs Temperature 98.8 F 05/11/19 05:54 Pulse Rate 90 05/11/19 05:54 Respiratory Rate 20 05/11/19 05:54 Blood Pressure 114/63 05/11/19 05:54 O2 Sat by Pulse Oximetry (%) 96 05/10/19 20:27 Constitutional: Yes: Well Nourished, No Distress, Calm, Mild Distress Eyes: Yes: WNL, Conjunctiva Clear, EOM Intact HENT: Yes: WNL, Atraumatic, Normocephalic Neck: Yes: WNL, Supple, Trachea Midline Cardiovascular: Yes: WNL, Regular Rate and Rhythm Respiratory: Yes: Regular, Diminished (at bases), On BiPap (PRN/at night), On Nasal O2 (4L), SOB on Exertion Gastrointestinal: Yes: WNL, Normal Bowel Sounds, Soft ...Rectal Exam: Yes: Deferred Genitourinary: Yes: WNL Musculoskeletal: Yes: WNL Extremities: Yes: WNL Edema: No Peripheral Pulses WNL: Yes Integumentary: Yes: WNL Neurological: Yes: WNL, Alert, Oriented ...Motor Strength: WNL Psychiatric: Yes: WNL, Alert, Oriented Labs: CBC, BMP 05/11/19 06:02 05/11/19 06:15 INR, PTT INR 1.52 (0.83-1.09) H 05/06/19 05:50 - ....Imaging Chest X-ray: Report Reviewed (CXR: effusion v. infiltarte on right), Image Reviewed Problem List - Problems (1) CHF (congestive heart failure) Assessment/Plan: Decompensated CHF continue lasix 80mg daily addition of zaroxlyn 2.5mg TIW TTE with global hypokenesis, EF 25-30% Cardiology consult appreciated Code(s): I50.9 - HEART FAILURE, UNSPECIFIED (2) PNA (pneumonia) Assessment/Plan: -CXR effusion v. inflitate, O2 requirement increased overnight requiring BiPap more frequently/ WBC increased from 9-->13, Afebrile -will continue to monitor and have low threshold for restarting abx -appreciate Pulmonary recommendations -Suppplental O2 NC with NIPPV PRN -Duo Nebs prn -Maintain 02 Sat 92% on Supp o2 -patient will most likely need home O2 and NIPPV at home -after further view, BiPap and been ruled ineffective due to patients's acute on chronic respiratory failure as a consequence of COPD. Patient will require non-invasive home ventilator to help decrease the work of breathing and improve pulmonary status. If left untreated may cause harm to patient and/or . -will consult with SW/CM about discharge planning - Code(s): J18.9 - PNEUMONIA, UNSPECIFIED ORGANISM (3) Anemia Assessment/Plan: monitor CBC transfuse for hgb 7 given cardiac disease or symptomatic start iron and folic acid Code(s): D64.9 - ANEMIA, UNSPECIFIED Qualifiers: Anemia type: iron deficiency (4) Essential hypertension Assessment/Plan: patient normotensive continue lisinipril tele monitoring Code(s): I10 - ESSENTIAL (PRIMARY) HYPERTENSION (5) Hx of cardiac pacemaker Assessment/Plan: appreciate cardiology consult confirmed that device is an AICD Code(s): Z95.0 - PRESENCE OF CARDIAC PACEMAKER (6) S/P CABG (coronary artery bypass graft) Code(s): Z95.1 - PRESENCE OF AORTOCORONARY BYPASS GRAFT (7) Polysubstance (including opioids) dependence without physiological dependence Assessment/Plan: continue thiamine, MVI, and folic acid refer back to [facility] when medically stable-Dr Obrien Code(s): F19.20 - OTHER PSYCHOACTIVE SUBSTANCE DEPENDENCE, UNCOMPLICATED (8) Hx of hyperlipidemia Assessment/Plan: continue atorvastatin Code(s): Z86.39 - PERSONAL HISTORY OF ENDO, NUTRITIONAL AND METABOLIC DISEASE (9) Asthma Code(s): J45.909 - UNSPECIFIED ASTHMA, UNCOMPLICATED (10) COPD (chronic obstructive pulmonary disease) Assessment/Plan: continue inhaled steroids as taper/bronchodilators pulmonary consult appreciate NIPPV as needed at night pre/post ambulation oxygenation to determine home O2 requirement Code(s): J44.9 - CHRONIC OBSTRUCTIVE PULMONARY DISEASE, UNSPECIFIED Qualifiers: Emphysema type: unspecified (11) Thoracic aortic aneurysm Assessment/Plan: outpatient surveillance Code(s): I71.2 - THORACIC AORTIC ANEURYSM, WITHOUT RUPTURE (12) Prophylactic measure Assessment/Plan: FEN cardiac diet no fluids needed monitor electrolytes DVT Proph continue brilinta ambulation ad muna Dispo maintain as in patient full code discharge planning Code(s): Z29.9 - ENCOUNTER FOR PROPHYLACTIC MEASURES, UNSPECIFIED Visit type - Emergency Visit Emergency Visit: Yes ED Registration Date: 05/05/19 Care time: The patient presented to the Emergency Department on the above date and was hospitalized for further evaluation of their emergent condition. - New Patient This patient is new to me today: No - Critical Care Critical Care patient: No - Discharge Referral Referred to [facility] No
[2019-05-11] MEDS: ALBUTEROL SO4 2.5/IPRATROPIUM 0.5 INH SOL 3 ML VIAL.NEB. NEB SCH ×4 (08:59→20:10)
[2019-05-11] MEDS ORDERED: PIPERACILLIN/TAZOB 3.375 GM 3.375 GM in DEXTROSE 5%-WATER - 50 ML IVPB SCH (10:00)
[2019-05-11] MEDS: FERROUS SO4 325 MG TABLET (FP) PO SCH ×3 (10:16→17:44)
[2019-05-11] MEDS: FUROSEMIDE 40 MG TABLET (FP) PO SCH (10:16)
[2019-05-11] MEDS: ASPIRIN COATED 81 MG TABLET.EC PO SCH (10:17)
[2019-05-11] MEDS: TICAGRELOR 90 MG TABLET PO SCH ×2 (10:17→23:13)
[2019-05-11] MEDS: FOLIC ACID 1 MG TABLET (FP) PO SCH (10:17)
[2019-05-11] MEDS: LISINOPRIL 20 MG TABLET (FP) PO SCH (10:17)
[2019-05-11] MEDS: methylPREDNISolone NA SUCC 40 MG/1 ML VIAL IVPUSH SCH ×2 (10:17→23:13)
[2019-05-11] MEDS: MULTIVITAMINS (DAILY MVI) TABLET (FP) PO SCH (10:17)
[2019-05-11] MEDS: BUDESONIDE/FORMETEROL FUMARATE 160/4.5 mcg INHALER IH SCH ×2 (10:18→23:16)
[2019-05-11] MEDS: THIAMINE HCL 100 MG TABLET (FP) PO SCH (10:18)
[2019-05-11] MEDS: PIPERACILLIN/TAZOB 3.375 GM 3.375 GM in DEXTROSE 5%-WATER - 50 ML IVPB SCH ×2 (10:40→17:45)
[2019-05-11] MEDS: AZITHROMYCIN IVPB 500 MG/250 ML BAG IVPB SCH (10:40)
--- NOTE | 2019-05-11 12:24 | PN ---
Progress Note (short form) - Note Progress Note: s: was feeling better, sob worse again this morning. no chest pain, palps, dizziness. tele: sinus, PVCs Current Medications Albuterol Sulfate (Ventolin 0.083% Nebulizer Soln -) 1 amp NEB Q4H PRN PRN Reason: SHORT OF BREATH/WHEEZING Last Admin: 05/08/19 04:45 Dose: 1 amp Albuterol/Ipratropium (Duoneb -) 1 amp NEB RQID [facility] Last Admin: 05/11/19 08:59 Dose: 1 amp Aspirin (Ecotrin -) 81 mg PO DAILY [facility] Last Admin: 05/11/19 10:17 Dose: 81 mg Atorvastatin Calcium (Lipitor -) 80 mg PO HS [facility] Last Admin: 05/10/19 21:22 Dose: 80 mg Budesonide/Formoterol Fumarate (Symbicort 160/4.5mcg -) 2 puff IH BID [facility] Last Admin: 05/11/19 10:18 Dose: 2 puff Ferrous Sulfate (Feosol -) 325 mg PO TIDCM [facility] Last Admin: 05/11/19 10:16 Dose: 325 mg Folic Acid (Folic Acid -) 1 mg PO DAILY [facility] Last Admin: 05/11/19 10:17 Dose: 1 mg Furosemide (Lasix -) 80 mg PO DAILY [facility] Last Admin: 05/11/19 10:16 Dose: 80 mg Azithromycin (Zithromax 500mg Ivpb (Pre-Docked)) 500 mg in 250 mls @ 250 mls/ hr IVPB DAILY [facility] Last Admin: 05/11/19 10:40 Dose: 250 mls/hr Piperacillin Sod/Tazobactam (Sod 3.375 gm/ Dextrose) 50 mls @ 100 mls/hr IVPB Q8H-IV [facility]; Protocol Piperacillin Sod/Tazobactam (Sod 3.375 gm/ Dextrose) 50 mls @ 100 mls/hr IVPB Q8H-IV [facility]; Protocol Stop: 05/12/19 09:59 Last Admin: 05/11/19 10:40 Dose: 100 mls/hr Lisinopril (Prinivil) 5 mg PO DAILY [facility] Last Admin: 05/11/19 10:17 Dose: 5 mg Methylprednisolone Sodium Succinate (Solu-Medrol -) 40 mg IVPUSH BID [facility] Last Admin: 05/11/19 10:17 Dose: 40 mg Metolazone (Zaroxolyn -) 2.5 mg PO Q2D@0930 [facility] Metoprolol Succinate (Toprol Xl -) 50 mg PO DAILY [facility] Last Admin: 05/11/19 10:17 Dose: 50 mg Montelukast Sodium (Singulair -) 10 mg PO HS [facility] Last Admin: 05/10/19 21:22 Dose: 10 mg Multivitamins/Minerals/Vitamin C (Tab-A-Vit -) 1 tab PO DAILY [facility] Last Admin: 05/11/19 10:17 Dose: 1 tab Senna (Senna -) 2 tab PO HS PRN PRN Reason: CONSTIPATION Last Admin: 05/09/19 00:21 Dose: 2 tab Thiamine HCl (Vitamin B1 -) 100 mg PO DAILY [facility] Last Admin: 05/11/19 10:18 Dose: 100 mg Ticagrelor (Brilinta -) 90 mg PO BID [facility] Last Admin: 05/11/19 10:17 Dose: 90 mg Vital Signs Period Temp Pulse Resp BP Sys/Hernandez Pulse Ox Last 24 Hr 97.6 F-98.8 F 76-110 20-20 92-114/63-90 83-96 Constitutional: Yes: No Distress Cardiovascular: Yes: Regular Rate and Rhythm, JVD Respiratory: Yes: Other (slight decreased breath sounds at bases) Gastrointestinal: Yes: Soft Edema: Yes Edema: LLE: 1+, RLE: 1+ Neurological: Yes: Alert not agitated no jaundice, diaphoresis - ....Imaging EKG: Image Reviewed Assessment/Plan IMP: 1. Acute on chronic systolic CHF 2. CAD 3. History of bio MVR 4. History of Polysubstance Abuse, non-adherence with meds/follow up. Acute on chronic HF exacerbation, shortness of breath: - weight stable - cont lasix 80 mg PO daily - monitor daily weights, Cr, lytes - continue ACEI, bb COPD: - steroids, nebs per pulm CAD: - trop neg x 2, EKG unchanged from prior - cont aspirin, statin, ticagrelor - outpatient regimen. Per patient, no PCI within last 12 months. This needs to be verified by review of old records prior to discontinuation of Brilinta. Patient will f/u with his own [facility] upon discharge. ICD: Patient card indicates he has a [employer] ICD - Routine outpatient interrogation. Thoracic aorta aneurysm: - outpatient surveillance HTN: - cont home meds HLD: - cont statin
--- NOTE | 2019-05-11 12:37 | PN ---
Progress Note, Physician History of Present Illness: PULMONARY ALERT,C/O INCREASED SOB TODAY,-CP - Current Medication List Current Medications: Active Medications Albuterol Sulfate (Ventolin 0.083% Nebulizer Soln -) 1 amp NEB Q4H PRN PRN Reason: SHORT OF BREATH/WHEEZING Last Admin: 05/08/19 04:45 Dose: 1 amp Albuterol/Ipratropium (Duoneb -) 1 amp NEB RQID [facility] Last Admin: 05/11/19 08:59 Dose: 1 amp Aspirin (Ecotrin -) 81 mg PO DAILY [facility] Last Admin: 05/11/19 10:17 Dose: 81 mg Atorvastatin Calcium (Lipitor -) 80 mg PO HS [facility] Last Admin: 05/10/19 21:22 Dose: 80 mg Budesonide/Formoterol Fumarate (Symbicort 160/4.5mcg -) 2 puff IH BID [facility] Last Admin: 05/11/19 10:18 Dose: 2 puff Ferrous Sulfate (Feosol -) 325 mg PO TIDCM [facility] Last Admin: 05/11/19 10:16 Dose: 325 mg Folic Acid (Folic Acid -) 1 mg PO DAILY [facility] Last Admin: 05/11/19 10:17 Dose: 1 mg Furosemide (Lasix -) 80 mg PO DAILY [facility] Last Admin: 05/11/19 10:16 Dose: 80 mg Azithromycin (Zithromax 500mg Ivpb (Pre-Docked)) 500 mg in 250 mls @ 250 mls/ hr IVPB DAILY [facility] Last Admin: 05/11/19 10:40 Dose: 250 mls/hr Piperacillin Sod/Tazobactam (Sod 3.375 gm/ Dextrose) 50 mls @ 100 mls/hr IVPB Q8H-IV [facility]; Protocol Piperacillin Sod/Tazobactam (Sod 3.375 gm/ Dextrose) 50 mls @ 100 mls/hr IVPB Q8H-IV [facility]; Protocol Stop: 05/12/19 09:59 Last Admin: 05/11/19 10:40 Dose: 100 mls/hr Lisinopril (Prinivil) 5 mg PO DAILY [facility] Last Admin: 05/11/19 10:17 Dose: 5 mg Methylprednisolone Sodium Succinate (Solu-Medrol -) 40 mg IVPUSH BID [facility] Last Admin: 05/11/19 10:17 Dose: 40 mg Metolazone (Zaroxolyn -) 2.5 mg PO Q2D@0930 [facility] Metoprolol Succinate (Toprol Xl -) 50 mg PO DAILY [facility] Last Admin: 05/11/19 10:17 Dose: 50 mg Montelukast Sodium (Singulair -) 10 mg PO HS [facility] Last Admin: 05/10/19 21:22 Dose: 10 mg Multivitamins/Minerals/Vitamin C (Tab-A-Vit -) 1 tab PO DAILY [facility] Last Admin: 05/11/19 10:17 Dose: 1 tab Senna (Senna -) 2 tab PO HS PRN PRN Reason: CONSTIPATION Last Admin: 05/09/19 00:21 Dose: 2 tab Thiamine HCl (Vitamin B1 -) 100 mg PO DAILY [facility] Last Admin: 05/11/19 10:18 Dose: 100 mg Ticagrelor (Brilinta -) 90 mg PO BID [facility] Last Admin: 05/11/19 10:17 Dose: 90 mg - Objective Vital Signs: Vital Signs Temperature 98.8 F 05/11/19 05:54 Pulse Rate 110 H 05/11/19 10:16 Respiratory Rate 05/11/19 05:54 Blood Pressure 114/63 05/11/19 05:54 O2 Sat by Pulse Oximetry (%) 83 L 05/11/19 10:16 Constitutional: Yes: Well Nourished, No Distress, Calm Eyes: Yes: WNL HENT: Yes: WNL Neck: Yes: WNL Cardiovascular: Yes: Regular Rate and Rhythm, S1, S2 Respiratory: Yes: Rales, Rhonchi (BILATERAL SCATTERED CRACKLES AND RHONCHI) Gastrointestinal: Yes: Normal Bowel Sounds, Soft Labs: CBC, BMP 05/11/19 06:02 05/11/19 06:15 INR, PTT INR 1.52 (0.83-1.09) H 05/06/19 05:50 - ....Imaging Chest X-ray: Report Reviewed, Image Reviewed Assessment/Plan Problem List - Problems (1) CHF (congestive heart failure) Code(s): I50.9 - HEART FAILURE, UNSPECIFIED (2) CAD (coronary artery disease) Code(s): I25.10 - ATHSCL HEART DISEASE OF [place] CORONARY ARTERY W/O ANG PCTRS Qualifiers: Coronary Disease-Associated Artery/Lesion type: bypass graft (3) COPD (chronic obstructive pulmonary disease) Code(s): J44.9 - CHRONIC OBSTRUCTIVE PULMONARY DISEASE, UNSPECIFIED Qualifiers: Emphysema type: unspecified (4) Essential hypertension Code(s): I10 - ESSENTIAL (PRIMARY) HYPERTENSION (5) S/P CABG (coronary artery bypass graft) Code(s): Z95.1 - PRESENCE OF AORTOCORONARY BYPASS GRAFT Assessment/Plan Decompensated CHF improving Acute COPD Exacerbation Less likely Pneumonia CAD s/p CABG h/o MVR HTN Hyperlipidemia Polysubstance Abuse - Medrol taper - IV lasix - monitor urine output, creatinine - inhaled bronchodilators standing and PRN - outpt PFTs - DVT prophylaxis - ABX DR BEATTY
--- NOTE | 2019-05-11 16:06 | PN ---
Progress Note (short form) - Note Progress Note: cardiology addendum: Patient had been feeling well in AM but as day progressed he has noticed sob. He has some basilar crackles and increased oxygen requirement. He is on iv abx and iv steroids. Will change po lasix to IV for now to help with likely chf component as well.
[2019-05-11] MEDS ORDERED: PIPERACILLIN/TAZOBACTAM 3.375 GM VIAL IVPB ONE (17:38)
[2019-05-11] MEDS ORDERED: DEXTROSE 5%-WATER - 50 ML IVPB ONE (17:38)
[2019-05-11] MEDS ORDERED: FUROSEMIDE 40 MG/4 ML INJECTABLE VIAL IVPUSH ONE (18:00)
[2019-05-11] MEDS: ATORVASTATIN CA 80 MG TABLET (FP) PO SCH (23:13)
[2019-05-11] MEDS: MONTELUKAST NA 10 MG TABLET PO SCH (23:13)
[2019-05-12] MEDS ORDERED: PIPERACILLIN/TAZOBACTAM 3.375 GM VIAL IVPB ONE (03:40)
[2019-05-12] MEDS ORDERED: DEXTROSE 5%-WATER - 50 ML IVPB ONE (03:41)
[2019-05-12] MEDS: PIPERACILLIN/TAZOB 3.375 GM 3.375 GM in DEXTROSE 5%-WATER - 50 ML IVPB SCH (04:03)
[2019-05-12] MEDS: FUROSEMIDE 40 MG/4 ML INJECTABLE VIAL IVPUSH SCH ×2 (06:04→15:15)
[2019-05-12] MEDS: ALBUTEROL SO4 2.5/IPRATROPIUM 0.5 INH SOL 3 ML VIAL.NEB. NEB SCH ×4 (07:30→21:11)
[2019-05-12 07:46] LABS: BILIRUBIN,TOTAL 3.2 mg/dL (0.2-1); CALCIUM 8.7 mg/dL (8.5-10.1); MAGNESIUM 2.3 mg/dL (1.8-2.4); POTASSIUM 3.7 mmol/L (3.5-5.1); TOT PROT 6.9 g/dl (6.4-8.2)
[2019-05-12 08:18] LABS: BASO % 0.1 % (0-2.0); EOS % 0.3 % (0-4.5); HEMATOCRIT 24.3 % (35.4-49); HEMOGLOBIN 7.9 GM/dL (11.7-16.9); MCH 26.5 pg (25.7-33.7); MCHC 32.5 g/dl (32.0-35.9); MEAN CELL VOLUME 81.4 fl (80-96); MEAN PLT VOLUME 7.9 fl (7.5-11.1); MONO % 1.9 % (3.8-10.2); NEUT % 93.7 % (42.8-82.8); PLATELET COUNT 206 K/MM3 (134-434); RBC 2.98 M/mm3 (4.00-5.60); RDW 22.6 % (11.9-15.9); WHITE BLOOD COUNT 9.5 K/mm3 (4.0-10.0)
[2019-05-12] MEDS: FERROUS SO4 325 MG TABLET (FP) PO SCH ×3 (08:30→17:40)
[2019-05-12] MEDS ORDERED: PT OWN MED DRAWER 7, Y5N ONE ×2 (09:29→20:38)
[2019-05-12] MEDS ORDERED: METOLAZONE 2.5 MG TABLET (FP) PO SCH (09:30)
[2019-05-12] MEDS: TICAGRELOR 90 MG TABLET PO SCH ×2 (09:53→22:03)
[2019-05-12] MEDS: FOLIC ACID 1 MG TABLET (FP) PO SCH (09:53)
[2019-05-12] MEDS: ASPIRIN COATED 81 MG TABLET.EC PO SCH (09:53)
[2019-05-12] MEDS: MULTIVITAMINS (DAILY MVI) TABLET (FP) PO SCH (09:54)
[2019-05-12] MEDS: methylPREDNISolone NA SUCC 40 MG/1 ML VIAL IVPUSH SCH ×2 (09:54→22:04)
[2019-05-12] MEDS: BUDESONIDE/FORMETEROL FUMARATE 160/4.5 mcg INHALER IH SCH ×2 (09:54→22:03)
[2019-05-12] MEDS: LISINOPRIL 20 MG TABLET (FP) PO SCH (09:54)
[2019-05-12] MEDS: THIAMINE HCL 100 MG TABLET (FP) PO SCH (09:55)
[2019-05-12] MEDS: AZITHROMYCIN IVPB 500 MG/250 ML BAG IVPB SCH (10:06)
[2019-05-12 10:29] LABS: ANISOCYTOSIS 2+; MACROCYTOSIS 0; PLATELET ESTIMATE NORMAL; TARGET CELLS 1+
--- NOTE | 2019-05-12 10:52 | PN ---
Progress Note, Physician Chief Complaint: shortness of breath History of Present Illness: feeling better today, no acute events overnight. Afebrile and ambulating - Current Medication List Current Medications: Active Medications Albuterol Sulfate (Ventolin 0.083% Nebulizer Soln -) 1 amp NEB Q4H PRN PRN Reason: SHORT OF BREATH/WHEEZING Last Admin: 05/08/19 04:45 Dose: 1 amp Albuterol/Ipratropium (Duoneb -) 1 amp NEB RQID [facility] Last Admin: 05/12/19 07:30 Dose: 1 amp Aspirin (Ecotrin -) 81 mg PO DAILY [facility] Last Admin: 05/12/19 09:53 Dose: 81 mg Atorvastatin Calcium (Lipitor -) 80 mg PO HS [facility] Last Admin: 05/11/19 23:13 Dose: 80 mg Budesonide/Formoterol Fumarate (Symbicort 160/4.5mcg -) 2 puff IH BID [facility] Last Admin: 05/12/19 09:54 Dose: 2 puff Ferrous Sulfate (Feosol -) 325 mg PO TIDCM [facility] Last Admin: 05/12/19 08:30 Dose: 325 mg Folic Acid (Folic Acid -) 1 mg PO DAILY [facility] Last Admin: 05/12/19 09:53 Dose: 1 mg Furosemide (Lasix Injection -) 40 mg IVPUSH BID@0600,1400 [facility] Last Admin: 05/12/19 06:04 Dose: 40 mg Azithromycin (Zithromax 500mg Ivpb (Pre-Docked)) 500 mg in 250 mls @ 250 mls/ hr IVPB DAILY [facility] Last Admin: 05/12/19 10:06 Dose: 250 mls/hr Piperacillin Sod/Tazobactam (Sod 3.375 gm/ Dextrose) 50 mls @ 100 mls/hr IVPB Q8H-IV [facility]; Protocol Lisinopril (Prinivil) 5 mg PO DAILY [facility] Last Admin: 05/12/19 09:54 Dose: 5 mg Methylprednisolone Sodium Succinate (Solu-Medrol -) 40 mg IVPUSH BID [facility] Last Admin: 05/12/19 09:54 Dose: 40 mg Metolazone (Zaroxolyn -) 2.5 mg PO Q2D@0930 [facility] Metoprolol Succinate (Toprol Xl -) 50 mg PO DAILY [facility] Last Admin: 05/12/19 09:55 Dose: 50 mg Montelukast Sodium (Singulair -) 10 mg PO HS [facility] Last Admin: 05/11/19 23:13 Dose: 10 mg Multivitamins/Minerals/Vitamin C (Tab-A-Vit -) 1 tab PO DAILY [facility] Last Admin: 05/12/19 09:54 Dose: 1 tab Senna (Senna -) 2 tab PO HS PRN PRN Reason: CONSTIPATION Last Admin: 05/09/19 00:21 Dose: 2 tab Thiamine HCl (Vitamin B1 -) 100 mg PO DAILY [facility] Last Admin: 05/12/19 09:55 Dose: 100 mg Ticagrelor (Brilinta -) 90 mg PO BID [facility] Last Admin: 05/12/19 09:53 Dose: 90 mg - Objective Vital Signs: Vital Signs Temperature 98.1 F 05/12/19 05:52 Pulse Rate 75 05/12/19 05:52 Respiratory Rate 20 05/12/19 05:52 Blood Pressure 95/64 05/12/19 05:52 O2 Sat by Pulse Oximetry (%) 99 05/12/19 07:30 Constitutional: Yes: Well Nourished, No Distress, Calm Cardiovascular: Yes: WNL, Regular Rate and Rhythm Respiratory: Yes: Diminished (breath sounds at bases), On Nasal O2 Gastrointestinal: Yes: WNL, Normal Bowel Sounds, Soft Musculoskeletal: Yes: WNL Extremities: Yes: WNL Edema: No Labs: CBC, BMP 05/12/19 06:44 05/12/19 06:44 INR, PTT INR 1.52 (0.83-1.09) H 05/06/19 05:50 Problem List - Problems (1) Anemia Code(s): D64.9 - ANEMIA, UNSPECIFIED (2) CHF (congestive heart failure) Code(s): I50.9 - HEART FAILURE, UNSPECIFIED (3) PNA (pneumonia) Code(s): J18.9 - PNEUMONIA, UNSPECIFIED ORGANISM (4) Polysubstance (including opioids) dependence without physiological dependence Code(s): F19.20 - OTHER PSYCHOACTIVE SUBSTANCE DEPENDENCE, UNCOMPLICATED (5) Thoracic aortic aneurysm Code(s): I71.2 - THORACIC AORTIC ANEURYSM, WITHOUT RUPTURE (6) Alcohol-induced sleep disorder Code(s): F10.982 - ALCOHOL USE, UNSPECIFIED WITH ALCOHOL-INDUCED SLEEP DISORDER (7) Cocaine dependence, episodic Code(s): F14.20 - COCAINE DEPENDENCE, UNCOMPLICATED (8) CAD (coronary artery disease) Code(s): I25.10 - ATHSCL HEART DISEASE OF [place] CORONARY ARTERY W/O ANG PCTRS Qualifiers: Coronary Disease-Associated Artery/Lesion type: bypass graft (9) COPD (chronic obstructive pulmonary disease) Code(s): J44.9 - CHRONIC OBSTRUCTIVE PULMONARY DISEASE, UNSPECIFIED Qualifiers: Emphysema type: unspecified (10) Essential hypertension Code(s): I10 - ESSENTIAL (PRIMARY) HYPERTENSION (11) Hx of cardiac pacemaker Code(s): Z95.0 - PRESENCE OF CARDIAC PACEMAKER (12) S/P CABG (coronary artery bypass graft) Code(s): Z95.1 - PRESENCE OF AORTOCORONARY BYPASS GRAFT (13) Systolic CHF Code(s): I50.20 - UNSPECIFIED SYSTOLIC (CONGESTIVE) HEART FAILURE Qualifiers: Heart failure chronicity: chronic Qualified Code(s): I50.22 - Chronic systolic (congestive) heart failure Assessment/Plan Assessment: Acute hypoxic respiratory failure Acute Systolic CHF exacerbation COPD exacerbation HTN ID Anemia CAD s/p CABG s/p AICD Polysubstance dependence HLD Thoracic AAA Plan: 1) Acute respiratory failure secondary to acute Systolic CHF exacerbation and COPD exacerbation, less likely pneumonia -negative 2 liters, better diuresis with addition of IV lasix -c/w IV lasix/zaroxolyn TIW -i/o's and daily weights -fluid restriction -patient is afebrile, cxr with congestive changes, less likely infiltrates, increased white count likely due to steroids, normal today, would DC antibiotics and monitor -c/w IV steroids, taper per pulm -inhaled nebs -home NIV being set up, social services aide aware -cardio and pulm eval appreciated -supp 02 as needed -pre/post ambulation oxygenation to determine home O2 requirement 2) HTN -controlled on lisinopril 3) CHERELLE -on ferrous sulfate -constipated, add colace to senna -monitor 4) Polysubstance abuse -c/w thiamine/folic acid and MVI -dc back to [facility] once medically optimized 5) HLD on statin 6) Thoracic AA -monitor o/p 7) CAD s/p CABS -c/w asa/brilinta/bb/aceI/statin
--- NOTE | 2019-05-12 11:18 | PN ---
Progress Note, Physician History of Present Illness: PULMONARY ALERT,LESS DYSPNEIC ON NASAL CANNULA - Current Medication List Current Medications: Active Medications Albuterol Sulfate (Ventolin 0.083% Nebulizer Soln -) 1 amp NEB Q4H PRN PRN Reason: SHORT OF BREATH/WHEEZING Last Admin: 05/08/19 04:45 Dose: 1 amp Albuterol/Ipratropium (Duoneb -) 1 amp NEB RQID [facility] Last Admin: 05/12/19 07:30 Dose: 1 amp Aspirin (Ecotrin -) 81 mg PO DAILY [facility] Last Admin: 05/12/19 09:53 Dose: 81 mg Atorvastatin Calcium (Lipitor -) 80 mg PO HS [facility] Last Admin: 05/11/19 23:13 Dose: 80 mg Budesonide/Formoterol Fumarate (Symbicort 160/4.5mcg -) 2 puff IH BID [facility] Last Admin: 05/12/19 09:54 Dose: 2 puff Ferrous Sulfate (Feosol -) 325 mg PO TIDCM [facility] Last Admin: 05/12/19 08:30 Dose: 325 mg Folic Acid (Folic Acid -) 1 mg PO DAILY [facility] Last Admin: 05/12/19 09:53 Dose: 1 mg Furosemide (Lasix Injection -) 40 mg IVPUSH BID@0600,1400 [facility] Last Admin: 05/12/19 06:04 Dose: 40 mg Azithromycin (Zithromax 500mg Ivpb (Pre-Docked)) 500 mg in 250 mls @ 250 mls/ hr IVPB DAILY [facility] Last Admin: 05/12/19 10:06 Dose: 250 mls/hr Piperacillin Sod/Tazobactam (Sod 3.375 gm/ Dextrose) 50 mls @ 100 mls/hr IVPB Q8H-IV [facility]; Protocol Lisinopril (Prinivil) 5 mg PO DAILY [facility] Last Admin: 05/12/19 09:54 Dose: 5 mg Methylprednisolone Sodium Succinate (Solu-Medrol -) 40 mg IVPUSH BID [facility] Last Admin: 05/12/19 09:54 Dose: 40 mg Metolazone (Zaroxolyn -) 2.5 mg PO Q2D@0930 [facility] Metoprolol Succinate (Toprol Xl -) 50 mg PO DAILY [facility] Last Admin: 05/12/19 09:55 Dose: 50 mg Montelukast Sodium (Singulair -) 10 mg PO HS [facility] Last Admin: 05/11/19 23:13 Dose: 10 mg Multivitamins/Minerals/Vitamin C (Tab-A-Vit -) 1 tab PO DAILY [facility] Last Admin: 05/12/19 09:54 Dose: 1 tab Senna (Senna -) 2 tab PO HS PRN PRN Reason: CONSTIPATION Last Admin: 05/09/19 00:21 Dose: 2 tab Thiamine HCl (Vitamin B1 -) 100 mg PO DAILY [facility] Last Admin: 05/12/19 09:55 Dose: 100 mg Ticagrelor (Brilinta -) 90 mg PO BID [facility] Last Admin: 05/12/19 09:53 Dose: 90 mg - Objective Vital Signs: Vital Signs Temperature 98.1 F 05/12/19 05:52 Pulse Rate 75 05/12/19 05:52 Respiratory Rate 20 05/12/19 05:52 Blood Pressure 95/64 05/12/19 05:52 O2 Sat by Pulse Oximetry (%) 99 05/12/19 07:30 Constitutional: Yes: Well Nourished, Calm, Other (MILLDY DYSPNEIC) Eyes: Yes: WNL HENT: Yes: WNL Neck: Yes: WNL Cardiovascular: Yes: WNL Respiratory: Yes: Rales (BIBASILAR RALES) Gastrointestinal: Yes: Normal Bowel Sounds, Soft Extremities: Yes: WNL Edema: No Labs: CBC, BMP 05/12/19 06:44 05/12/19 06:44 INR, PTT INR 1.52 (0.83-1.09) H 05/06/19 05:50 Assessment/Plan Problem List - Problems (1) CHF (congestive heart failure) Code(s): I50.9 - HEART FAILURE, UNSPECIFIED (2) CAD (coronary artery disease) Code(s): I25.10 - ATHSCL HEART DISEASE OF [place] CORONARY ARTERY W/O ANG PCTRS Qualifiers: Coronary Disease-Associated Artery/Lesion type: bypass graft (3) COPD (chronic obstructive pulmonary disease) Code(s): J44.9 - CHRONIC OBSTRUCTIVE PULMONARY DISEASE, UNSPECIFIED Qualifiers: Emphysema type: unspecified (4) Essential hypertension Code(s): I10 - ESSENTIAL (PRIMARY) HYPERTENSION (5) S/P CABG (coronary artery bypass graft) Code(s): Z95.1 - PRESENCE OF AORTOCORONARY BYPASS GRAFT Assessment/Plan Decompensated CHF improving Acute COPD Exacerbation Less likely Pneumonia CAD s/p CABG h/o MVR HTN Hyperlipidemia Polysubstance Abuse - Medrol - IV lasix - monitor urine output, creatinine - inhaled bronchodilators standing and PRN - outpt PFTs - DVT prophylaxis - ABX DR BEATTY
--- NOTE | 2019-05-12 11:25 | PN ---
Progress Note (short form) - Note Progress Note: s: no chest pain, palps, dyspnea. worsening sob yesterday afternoon improved with IV lasix tele: sinus, PVCs Current Medications Albuterol Sulfate (Ventolin 0.083% Nebulizer Soln -) 1 amp NEB Q4H PRN PRN Reason: SHORT OF BREATH/WHEEZING Last Admin: 05/08/19 04:45 Dose: 1 amp Albuterol/Ipratropium (Duoneb -) 1 amp NEB RQID [facility] Last Admin: 05/12/19 07:30 Dose: 1 amp Aspirin (Ecotrin -) 81 mg PO DAILY [facility] Last Admin: 05/12/19 09:53 Dose: 81 mg Atorvastatin Calcium (Lipitor -) 80 mg PO [facility] Last Admin: 05/11/19 23:13 Dose: 80 mg Budesonide/Formoterol Fumarate (Symbicort 160/4.5mcg -) 2 puff IH BID [facility] Last Admin: 05/12/19 09:54 Dose: 2 puff Docusate Sodium (Colace -) 100 mg PO TID [facility] Ferrous Sulfate (Feosol -) 325 mg PO TIDCM [facility] Last Admin: 05/12/19 08:30 Dose: 325 mg Folic Acid (Folic Acid -) 1 mg PO DAILY [facility] Last Admin: 05/12/19 09:53 Dose: 1 mg Furosemide (Lasix Injection -) 40 mg IVPUSH BID@0600,1400 [facility] Last Admin: 05/12/19 06:04 Dose: 40 mg Lisinopril (Prinivil) 5 mg PO DAILY [facility] Last Admin: 05/12/19 09:54 Dose: 5 mg Methylprednisolone Sodium Succinate (Solu-Medrol -) 40 mg IVPUSH BID [facility] Last Admin: 05/12/19 09:54 Dose: 40 mg Metolazone (Zaroxolyn -) 2.5 mg PO Q2D@0930 [facility] Metoprolol Succinate (Toprol Xl -) 50 mg PO DAILY [facility] Last Admin: 05/12/19 09:55 Dose: 50 mg Montelukast Sodium (Singulair -) 10 mg PO HS [facility] Last Admin: 05/11/19 23:13 Dose: 10 mg Multivitamins/Minerals/Vitamin C (Tab-A-Vit -) 1 tab PO DAILY [facility] Last Admin: 05/12/19 09:54 Dose: 1 tab Senna (Senna -) 2 tab PO HS PRN PRN Reason: CONSTIPATION Last Admin: 05/09/19 00:21 Dose: 2 tab Thiamine HCl (Vitamin B1 -) 100 mg PO DAILY [facility] Last Admin: 05/12/19 09:55 Dose: 100 mg Ticagrelor (Brilinta -) 90 mg PO BID [facility] Last Admin: 05/12/19 09:53 Dose: 90 mg Vital Signs Period Temp Pulse Resp BP Sys/Hernandez Pulse Ox Last 24 Hr 97.8 F-98.2 F 75-89 18-20 95-117/50-70 98-99 Constitutional: Yes: No Distress Cardiovascular: Yes: Regular Rate and Rhythm no JVD Respiratory: Yes: CTAB Gastrointestinal: Yes: Soft Edema: Yes Edema: LLE: 1+, RLE: 1+ Neurological: Yes: Alert not agitated no jaundice, diaphoresis Assessment/Plan IMP: 1. Acute on chronic systolic CHF 2. CAD 3. History of bio MVR 4. History of Polysubstance Abuse, non-adherence with meds/follow up. Acute on chronic HF exacerbation, shortness of breath: - restarted IV lasix yesterday, continue - monitor daily weights, Cr, lytes - continue ACEI, bb COPD: - steroids, nebs per pulm CAD: - trop neg x 2, EKG unchanged from prior - cont aspirin, statin, ticagrelor - outpatient regimen. Per patient, no PCI within last 12 months. This needs to be verified by review of old records prior to discontinuation of Brilinta. Patient will f/u with his own Paper Sorter upon discharge. ICD: Patient card indicates he has a Medtronic ICD - Routine outpatient interrogation. Thoracic aorta aneurysm: - outpatient surveillance HTN: - cont home meds HLD: - cont statin
[2019-05-12] MEDS: DOCUSATE SODIUM 100 MG CAPSULE (FP) PO SCH ×2 (14:41→22:03)
[2019-05-12] MEDS: METOLAZONE 2.5 MG TABLET (FP) PO SCH (14:42)
[2019-05-12] MEDS: MONTELUKAST NA 10 MG TABLET PO SCH (22:03)
[2019-05-12] MEDS: ATORVASTATIN CA 80 MG TABLET (FP) PO SCH (22:03)
[2019-05-13] MEDS: DOCUSATE SODIUM 100 MG CAPSULE (FP) PO SCH ×3 (05:50→22:06)
[2019-05-13] MEDS: FUROSEMIDE 40 MG/4 ML INJECTABLE VIAL IVPUSH SCH ×2 (05:50→15:48)
--- NOTE | 2019-05-13 07:25 | PN ---
Progress Note, Physician Chief Complaint: SOB History of Present Illness: The patient is a 64 year old male, with a significant past medical history of polysubstance abuse (alcohol and cocaine, hx of withdrawal seizures), asthma, HTN, HLD, CAD (s/p mitral valve replacement 93, CABG 05, and pacemaker 09) CHF, and Aortic Aneurysm (ascending aorta, distal abdominal aorta, left common iliac artery, left internal iliac artery), who presented to the emergency department with worsening shortness of breath. As per EMR and patient, he was evaluated at [facility] in the [place] on 04/19 at which time he was discharged to [facility] on 04/29 on 5 days of Augmentin 875/125 BID and Doxycycline 100 MG BID (compliant). Patient notes his shortness of breath has not improved, prompting his arrival to the ED. Per the EMR, pt was hypoxic to 85 % at [facility] prior to admission - Current Medication List Current Medications: Active Medications Albuterol Sulfate (Ventolin 0.083% Nebulizer Soln -) 1 amp NEB Q4H PRN PRN Reason: SHORT OF BREATH/WHEEZING Last Admin: 05/08/19 04:45 Dose: 1 amp Albuterol/Ipratropium (Duoneb -) 1 amp NEB RQID [facility] Last Admin: 05/12/19 21:11 Dose: 1 amp Aspirin (Ecotrin -) 81 mg PO DAILY [facility] Last Admin: 05/12/19 09:53 Dose: 81 mg Atorvastatin Calcium (Lipitor -) 80 mg PO HS [facility] Last Admin: 05/12/19 22:03 Dose: 80 mg Budesonide/Formoterol Fumarate (Symbicort 160/4.5mcg -) 2 puff IH BID [facility] Last Admin: 05/12/19 22:03 Dose: 2 puff Docusate Sodium (Colace -) 100 mg PO TID [facility] Last Admin: 05/13/19 05:50 Dose: 100 mg Ferrous Sulfate (Feosol -) 325 mg PO TIDCM [facility] Last Admin: 05/12/19 17:40 Dose: 325 mg Folic Acid (Folic Acid -) 1 mg PO DAILY [facility] Last Admin: 05/12/19 09:53 Dose: 1 mg Furosemide (Lasix Injection -) 40 mg IVPUSH BID@0600,1400 [facility] Last Admin: 05/13/19 05:50 Dose: 40 mg Lisinopril (Prinivil) 5 mg PO DAILY [facility] Last Admin: 05/12/19 09:54 Dose: 5 mg Methylprednisolone Sodium Succinate (Solu-Medrol -) 40 mg IVPUSH BID [facility] Last Admin: 05/12/19 22:04 Dose: 40 mg Metolazone (Zaroxolyn -) 2.5 mg PO Q2D@1330 [facility] Last Admin: 05/12/19 14:42 Dose: 2.5 mg Metoprolol Succinate (Toprol Xl -) 50 mg PO DAILY [facility] Last Admin: 05/12/19 09:55 Dose: 50 mg Montelukast Sodium (Singulair -) 10 mg PO HS [facility] Last Admin: 05/12/19 22:03 Dose: 10 mg Multivitamins/Minerals/Vitamin C (Tab-A-Vit -) 1 tab PO DAILY [facility] Last Admin: 05/12/19 09:54 Dose: 1 tab Senna (Senna -) 2 tab PO HS PRN PRN Reason: CONSTIPATION Last Admin: 05/09/19 00:21 Dose: 2 tab Thiamine HCl (Vitamin B1 -) 100 mg PO DAILY [facility] Last Admin: 05/12/19 09:55 Dose: 100 mg Ticagrelor (Brilinta -) 90 mg PO BID [facility] Last Admin: 05/12/19 22:03 Dose: 90 mg - Objective Vital Signs: Vital Signs Temperature 97.8 F 05/13/19 05:42 Pulse Rate 88 05/13/19 05:42 Respiratory Rate 20 05/13/19 05:42 Blood Pressure 109/70 05/13/19 05:42 O2 Sat by Pulse Oximetry (%) 99 05/12/19 21:00 Constitutional: Yes: Well Nourished, No Distress Eyes: Yes: WNL, Conjunctiva Clear, EOM Intact HENT: Yes: WNL, Atraumatic, Normocephalic Neck: Yes: WNL, Supple, Trachea Midline Cardiovascular: Yes: WNL, Regular Rate and Rhythm Respiratory: Yes: WNL, Regular, Diminished (at bases), On BiPap (at night), On Nasal O2 Gastrointestinal: Yes: WNL, Normal Bowel Sounds, Soft ...Rectal Exam: Yes: Deferred Genitourinary: Yes: WNL Musculoskeletal: Yes: WNL Extremities: Yes: WNL Edema: Yes Edema: LLE: Trace, RLE: Trace Peripheral Pulses WNL: Yes Integumentary: Yes: WNL Neurological: Yes: WNL, Alert, Oriented ...Motor Strength: WNL Psychiatric: Yes: WNL, Alert, Oriented Labs: CBC, BMP 05/12/19 06:44 05/12/19 06:44 INR, PTT INR 1.52 (0.83-1.09) H 05/06/19 05:50 - ....Imaging Chest X-ray: Image Reviewed (CXR: effusion v. infiltarte on right) Problem List - Problems (1) CHF (congestive heart failure) Assessment/Plan: Decompensated CHF continue lasix 40mg IV BID addition of zaroxlyn 2.5mg TIW Daily weights 9admission wt 75kg down to 71kg) TTE with global hypokenesis, EF 25-30% Cardiology consult appreciated Code(s): I50.9 - HEART FAILURE, UNSPECIFIED (2) PNA (pneumonia) Assessment/Plan: -CXR effusion v. inflitate, O2 requirement decreasing from yesterday. Able to ambulate to end of mcginnis without O2 -appreciate Pulmonary recommendations -Suppplental O2 NC with NIPPV PRN -Duo Nebs prn -Maintain 02 Sat 92% on Supp o2 -Trilogy vent approved and will assess for need of O2 @ home Code(s): J18.9 - PNEUMONIA, UNSPECIFIED ORGANISM (3) Anemia Assessment/Plan: monitor CBC transfuse for hgb 7 given cardiac disease or symptomatic continue iron and folic acid Code(s): D64.9 - ANEMIA, UNSPECIFIED Qualifiers: Anemia type: iron deficiency (4) Essential hypertension Assessment/Plan: patient normotensive continue lisinipril tele monitoring Code(s): I10 - ESSENTIAL (PRIMARY) HYPERTENSION (5) Hx of cardiac pacemaker Assessment/Plan: appreciate cardiology consult confirmed that device is an AICD and will interrogate as outpatient Code(s): Z95.0 - PRESENCE OF CARDIAC PACEMAKER (6) S/P CABG (coronary artery bypass graft) Code(s): Z95.1 - PRESENCE OF AORTOCORONARY BYPASS GRAFT (7) Polysubstance (including opioids) dependence without physiological dependence Assessment/Plan: continue thiamine, MVI, and folic acid refer back to [facility] when medically stable-Dr Obrien Code(s): F19.20 - OTHER PSYCHOACTIVE SUBSTANCE DEPENDENCE, UNCOMPLICATED (8) Hx of hyperlipidemia Assessment/Plan: continue atorvastatin Code(s): Z86.39 - PERSONAL HISTORY OF ENDO, NUTRITIONAL AND METABOLIC DISEASE (9) Asthma Code(s): J45.909 - UNSPECIFIED ASTHMA, UNCOMPLICATED (10) COPD (chronic obstructive pulmonary disease) Assessment/Plan: continue inhaled/IV steroids/bronchodilators pulmonary consult appreciate NIPPV as needed at night pre/post ambulation oxygenation to determine home O2 requirement Code(s): J44.9 - CHRONIC OBSTRUCTIVE PULMONARY DISEASE, UNSPECIFIED Qualifiers: Emphysema type: unspecified (11) Thoracic aortic aneurysm Assessment/Plan: outpatient surveillance Code(s): I71.2 - THORACIC AORTIC ANEURYSM, WITHOUT RUPTURE (12) Prophylactic measure Assessment/Plan: FEN cardiac diet no fluids needed monitor electrolytes DVT Proph continue brilinta ambulation ad muna Dispo maintain as in patient full code discharge planning Code(s): Z29.9 - ENCOUNTER FOR PROPHYLACTIC MEASURES, UNSPECIFIED Visit type - Emergency Visit Emergency Visit: Yes ED Registration Date: 05/05/19 Care time: The patient presented to the Emergency Department on the above date and was hospitalized for further evaluation of their emergent condition. - New Patient This patient is new to me today: No - Critical Care Critical Care patient: No - Discharge Referral Referred to [facility] Med P.C.: No
[2019-05-13 08:00] LABS: BASO % 0.3 % (0-2.0); HEMATOCRIT 26.4 % (35.4-49); HEMOGLOBIN 8.4 GM/dL (11.7-16.9); LYMPH % 2.9 % (8-40); MCH 25.8 pg (25.7-33.7); MCHC 31.7 g/dl (32.0-35.9); MEAN CELL VOLUME 81.6 fl (80-96); MEAN PLT VOLUME 8.1 fl (7.5-11.1); MONO % 1.3 % (3.8-10.2); NEUT % 95.5 % (42.8-82.8); PLATELET COUNT 286 K/MM3 (134-434); RBC 3.23 M/mm3 (4.00-5.60); RDW 24.1 % (11.9-15.9); WHITE BLOOD COUNT 13.4 K/mm3 (4.0-10.0)
[2019-05-13] MEDS: ALBUTEROL SO4 2.5/IPRATROPIUM 0.5 INH SOL 3 ML VIAL.NEB. NEB SCH ×4 (08:20→20:37)
[2019-05-13] MEDS: FERROUS SO4 325 MG TABLET (FP) PO SCH ×3 (08:24→17:32)
[2019-05-13 08:29] LABS: ALBUMIN 3.4 g/dl (3.4-5.0); BILIRUBIN,TOTAL 3.1 mg/dL (0.2-1); BLOOD UREA NITROGEN 35.7 mg/dL (7-18); CALCIUM 9.4 mg/dL (8.5-10.1); CREATININE 1.1 mg/dL (0.55-1.3); MAGNESIUM 2.6 mg/dL (1.8-2.4); POTASSIUM 4.4 mmol/L (3.5-5.1); TOT PROT 7.5 g/dl (6.4-8.2)
[2019-05-13] MEDS ORDERED: POTASSIUM CHLORIDE TABS 20 MEQ TABLET.ER (FP) PO ONE (08:30)
[2019-05-13] MEDS ORDERED: PT OWN MED DRAWER 7, Y5N ONE ×2 (10:31→20:43)
[2019-05-13] MEDS: AZITHROMYCIN 250 MG TABLET PO SCH (10:33)
[2019-05-13] MEDS: FOLIC ACID 1 MG TABLET (FP) PO SCH (10:34)
[2019-05-13] MEDS: ASPIRIN COATED 81 MG TABLET.EC PO SCH (10:34)
[2019-05-13] MEDS: THIAMINE HCL 100 MG TABLET (FP) PO SCH (10:34)
[2019-05-13] MEDS: MULTIVITAMINS (DAILY MVI) TABLET (FP) PO SCH (10:34)
[2019-05-13] MEDS: methylPREDNISolone NA SUCC 40 MG/1 ML VIAL IVPUSH SCH ×2 (10:35→22:06)
[2019-05-13] MEDS: TICAGRELOR 90 MG TABLET PO SCH ×2 (10:35→22:06)
[2019-05-13] MEDS: BUDESONIDE/FORMETEROL FUMARATE 160/4.5 mcg INHALER IH SCH ×2 (10:35→22:09)
--- NOTE | 2019-05-13 10:56 | PN ---
Progress Note (short form) - Note Progress Note: s: no chest pain, palps, dyspnea. sob improving tele: sinus Current Medications Generic Name Dose Route Start Last Admin Trade Name Freq PRN Reason Stop Dose Admin Albuterol Sulfate 1 amp 05/06/19 13:01 05/08/19 04:45 Ventolin 0.083% Nebulizer Soln - NEB 1 amp Q4H PRN Administration SHORT OF BREATH/WHEEZING Albuterol/Ipratropium 1 amp 05/06/19 16:00 05/13/19 08:20 Duoneb - NEB 1 amp RQID MICHELLE Administration Aspirin 81 mg 05/06/19 10:00 05/13/19 10:34 Ecotrin - PO 81 mg DAILY MICHELLE Administration Atorvastatin Calcium 80 mg 05/05/19 22:00 05/12/19 22:03 Lipitor - PO 80 mg HS MICHELLE Administration Azithromycin 500 mg 05/13/19 10:00 05/13/19 10:33 Zithromax - PO 05/15/19 10:01 500 mg DAILY MICHELLE Administration Budesonide/Formoterol Fumarate 2 puff 05/05/19 22:00 05/13/19 10:35 Symbicort 160/4.5mcg - IH 2 puff BID MICHELLE Administration Docusate Sodium 100 mg 05/12/19 14:00 05/13/19 05:50 Colace - PO 100 mg TID [facility]HELLE Administration Ferrous Sulfate 325 mg 05/06/19 12:00 05/13/19 08:24 Feosol - PO 325 mg TIDCM MICHELLE Administration Folic Acid 1 mg 05/06/19 10:00 05/13/19 10:34 Folic Acid - PO 1 mg DAILY [facility] Administration Furosemide 40 mg 05/12/19 06:00 05/13/19 05:50 Lasix Injection - IVPUSH 40 mg BID@0600,1400 [facility]HELLE Administration Lisinopril 5 mg 05/06/19 10:00 05/12/19 09:54 Prinivil PO 5 mg DAILY [facility] Administration Methylprednisolone Sodium Succinate 40 mg 05/11/19 10:00 05/13/19 10:35 Solu-Medrol - IVPUSH 40 mg BID [facility] Administration Metolazone 2.5 mg 05/12/19 14:30 05/12/19 14:42 Zaroxolyn - PO 2.5 mg Q2D@1330 [facility] Administration Metoprolol Succinate 50 mg 05/06/19 10:00 05/13/19 10:34 Toprol Xl - PO 50 mg DAILY [facility] Administration Montelukast Sodium 10 mg 05/05/19 22:00 05/12/19 22:03 Singulair - PO 10 mg HS [facility] Administration Multivitamins/Minerals/Vitamin C 1 tab 05/06/19 10:00 05/13/19 10:34 Tab-A-Vit - PO 1 tab DAILY [facility] Administration Senna 2 tab 05/08/19 23:31 05/09/19 00:21 Senna - PO 2 tab HS PRN Administration CONSTIPATION Thiamine HCl 100 mg 05/06/19 10:00 05/13/19 10:34 Vitamin B1 - PO 100 mg DAILY [facility] Administration Ticagrelor 90 mg 05/05/19 22:00 05/13/19 10:35 Brilinta - PO 90 mg BID [facility] Administration Vital Signs Period Temp Pulse Resp BP Sys/Hernandez Pulse Ox Last 24 Hr 97.5 F-98 F 76-88 20-20 98-109/57-70 98-99 Constitutional: Yes: No Distress Cardiovascular: Yes: Regular Rate and Rhythm no JVD Respiratory: Yes: CTAB nl eff Gastrointestinal: Yes: Soft Edema: trace bl Neurological: Yes: Alert not agitated no jaundice, diaphoresis Assessment/Plan IMP: 1. Acute on chronic systolic CHF 2. CAD 3. History of bio MVR 4. History of Polysubstance Abuse, non-adherence with meds/follow up. Acute on chronic HF exacerbation, shortness of breath: - cont iv lasix, wt down, sob improving - monitor daily weights, Cr, lytes - continue ACEI, bb COPD: - steroids, nebs per pulm CAD: - trop neg x 2, EKG unchanged from prior - cont aspirin, statin, ticagrelor - outpatient regimen. Per patient, no PCI within last 12 months. This needs to be verified by review of old records prior to discontinuation of Brilinta. Patient will f/u with his own Studio Coordinator upon discharge. ICD: Patient card indicates he has a Medtronic ICD - Routine outpatient interrogation. Thoracic aorta aneurysm: - outpatient surveillance HTN: - cont home meds HLD: - cont statin
[2019-05-13 12:07] VITALS: BMI 25.9
[2019-05-13] MEDS: LISINOPRIL 5 MG TABLET (FP) PO SCH (12:10)
[2019-05-13] MEDS: LISINOPRIL 20 MG TABLET (FP) PO SCH (12:11)
[2019-05-13 13:22] LABS: ANISOCYTOSIS 1+; MACROCYTOSIS 0; OVALOCYTE 1+; PLATELET ESTIMATE NORMAL
--- NOTE | 2019-05-13 13:25 | PN ---
Progress Note (short form) - Note Progress Note: Still with some congested cough and [place], but a little better. NAD on 3 L NC. No hemoptysis. No acute events overnight. Intake & Output 05/10/19 05/11/19 05/12/19 05/13/19 23:59 23:59 23:59 23:59 Intake Total 310 710 800 50 Output Total 600 2700 4975 7291 Balance -303 -6014 -5195 -2919 Weight 165 lb 12.8 oz 166 lb 9.6 oz 161 lb 156 lb Last Vital Signs Temp Pulse Resp BP Pulse Ox 97.8 F 75 22 H 109/72 96 05/13/19 05:42 05/13/19 10:00 05/13/19 10:00 05/13/19 10:00 05/13/19 10:00 Active Medications Albuterol Sulfate (Ventolin 0.083% Nebulizer Soln -) 1 amp NEB Q4H PRN PRN Reason: SHORT OF BREATH/WHEEZING Last Admin: 05/08/19 04:45 Dose: 1 amp Albuterol/Ipratropium (Duoneb -) 1 amp NEB RQID [facility] Last Admin: 05/13/19 11:57 Dose: 1 amp Aspirin (Ecotrin -) 81 mg PO DAILY [facility] Last Admin: 05/13/19 10:34 Dose: 81 mg Atorvastatin Calcium (Lipitor -) 80 mg PO HS [facility] Last Admin: 05/12/19 22:03 Dose: 80 mg Azithromycin (Zithromax -) 500 mg PO DAILY [facility] Stop: 05/15/19 10:01 Last Admin: 05/13/19 10:33 Dose: 500 mg Budesonide/Formoterol Fumarate (Symbicort 160/4.5mcg -) 2 puff IH BID [facility] Last Admin: 05/13/19 10:35 Dose: 2 puff Docusate Sodium (Colace -) 100 mg PO TID [facility] Last Admin: 05/13/19 05:50 Dose: 100 mg Ferrous Sulfate (Feosol -) 325 mg PO TIDCM [facility] Last Admin: 05/13/19 12:10 Dose: 325 mg Folic Acid (Folic Acid -) 1 mg PO DAILY [facility] Last Admin: 05/13/19 10:34 Dose: 1 mg Furosemide (Lasix Injection -) 40 mg IVPUSH BID@0600,1400 [facility] Last Admin: 05/13/19 05:50 Dose: 40 mg Lisinopril (Prinivil) 5 mg PO DAILY [facility] Last Admin: 05/13/19 12:10 Dose: 5 mg Methylprednisolone Sodium Succinate (Solu-Medrol -) 40 mg IVPUSH BID [facility] Last Admin: 05/13/19 10:35 Dose: 40 mg Metolazone (Zaroxolyn -) 2.5 mg PO Q2D@1330 [facility] Last Admin: 05/12/19 14:42 Dose: 2.5 mg Metoprolol Succinate (Toprol Xl -) 50 mg PO DAILY [facility] Last Admin: 05/13/19 10:34 Dose: 50 mg Montelukast Sodium (Singulair -) 10 mg PO HS [facility] Last Admin: 05/12/19 22:03 Dose: 10 mg Multivitamins/Minerals/Vitamin C (Tab-A-Vit -) 1 tab PO DAILY [facility] Last Admin: 05/13/19 10:34 Dose: 1 tab Senna (Senna -) 2 tab PO HS PRN PRN Reason: CONSTIPATION Last Admin: 05/09/19 00:21 Dose: 2 tab Thiamine HCl (Vitamin B1 -) 100 mg PO DAILY [facility] Last Admin: 05/13/19 10:34 Dose: 100 mg Ticagrelor (Brilinta -) 90 mg PO BID [facility] Last Admin: 05/13/19 10:35 Dose: 90 mg Constitutional: Yes: NAD Eyes: Yes: Conjunctiva Clear, EOM Intact HENT: Yes: Atraumatic, Normocephalic Neck: Yes: Supple, Trachea Midline Cardiovascular: Yes: Regular Rate and Rhythm, JVD Respiratory: Yes: Scattered Rhonchi, no wheeze ...Clubbing: No Gastrointestinal: Yes: Normal Bowel Sounds, Soft. No: Tenderness Edema: No Neurological: Yes: Alert, Oriented Labs: Laboratory Results - last 24 hr 05/13/19 05/13/19 05:59 05:59 WBC 13.4 H RBC 3.23 L Hgb 8.4 L Hct 26.4 L MCV 81.6 MCH 25.8 MCHC 31.7 L RDW 24.1 H Plt Count 286 D MPV 8.1 Absolute Neuts (auto) 12.8 H Neutrophils % 95.5 H Lymphocytes % 2.9 L D Monocytes % 1.3 L Eosinophils % 0.0 D Basophils % 0.3 Nucleated RBC % 0 Sodium 133 L Potassium 4.4 Chloride 91 L Carbon Dioxide 35 H Anion Gap 7 L BUN 35.7 H Creatinine 1.1 Est GFR (CKD-EPI)AfAm 82.37 Est GFR (CKD-EPI)NonAf 71.07 Random Glucose 132 H Calcium 9.4 Magnesium 2.6 H Total Bilirubin 3.1 H AST 41 H ALT 53 Alkaline Phosphatase 164 H Total Protein 7.5 Albumin 3.4 Problem List - Problems (1) CHF (congestive heart failure) Code(s): I50.9 - HEART FAILURE, UNSPECIFIED (2) CAD (coronary artery disease) Code(s): I25.10 - ATHSCL HEART DISEASE OF [place] CORONARY ARTERY W/O ANG PCTRS Qualifiers: Coronary Disease-Associated Artery/Lesion type: bypass graft (3) COPD (chronic obstructive pulmonary disease) Code(s): J44.9 - CHRONIC OBSTRUCTIVE PULMONARY DISEASE, UNSPECIFIED Qualifiers: Emphysema type: unspecified (4) Essential hypertension Code(s): I10 - ESSENTIAL (PRIMARY) HYPERTENSION (5) S/P CABG (coronary artery bypass graft) Code(s): Z95.1 - PRESENCE OF AORTOCORONARY BYPASS GRAFT Assessment/Plan Decompensated CHF Acute COPD Exacerbation Less likely Pneumonia CAD s/p CABG h/o MVR HTN Hyperlipidemia Polysubstance Abuse - Medrol - IV lasix - monitor urine output, creatinine - inhaled bronchodilators standing and PRN - recently completed antibiotic course as outpatient, no fevers or leukocytosis , would monitor off - outpt PFTs - DVT prophylaxis - No smoking Dr Bella
[2019-05-13] MEDS: MONTELUKAST NA 10 MG TABLET PO SCH (22:06)
[2019-05-13] MEDS: ATORVASTATIN CA 80 MG TABLET (FP) PO SCH (22:06)
[2019-05-14] MEDS: FUROSEMIDE 40 MG/4 ML INJECTABLE VIAL IVPUSH SCH ×2 (06:45→14:00)
[2019-05-14] MEDS: DOCUSATE SODIUM 100 MG CAPSULE (FP) PO SCH ×3 (06:45→23:11)
[2019-05-14 06:58] LABS: BASO % 0.2 % (0-2.0); EOS % 0.4 % (0-4.5); HEMATOCRIT 26.3 % (35.4-49); HEMOGLOBIN 8.3 GM/dL (11.7-16.9); LYMPH % 3.3 % (8-40); MCH 25.6 pg (25.7-33.7); MCHC 31.6 g/dl (32.0-35.9); MEAN PLT VOLUME 7.8 fl (7.5-11.1); MONO % 1.5 % (3.8-10.2); NEUT % 94.6 % (42.8-82.8); RBC 3.24 M/mm3 (4.00-5.60); RDW 23.9 % (11.9-15.9); WHITE BLOOD COUNT 15.1 K/mm3 (4.0-10.0)
[2019-05-14] MEDS: ALBUTEROL SO4 2.5/IPRATROPIUM 0.5 INH SOL 3 ML VIAL.NEB. NEB SCH ×4 (07:00→20:34)
--- NOTE | 2019-05-14 07:21 | PN ---
Progress Note, Physician Chief Complaint: SOB History of Present Illness: The patient is a 64 year old male, with a significant past medical history of polysubstance abuse (alcohol and cocaine, hx of withdrawal seizures), asthma, HTN, HLD, CAD (s/p mitral valve replacement 93, CABG 05, and pacemaker 09) CHF, and Aortic Aneurysm (ascending aorta, distal abdominal aorta, left common iliac artery, left internal iliac artery), who presented to the emergency department with worsening shortness of breath. As per EMR and patient, he was evaluated at [facility] in the [place] on 04/19 at which time he was discharged to [facility] on 04/29 on 5 days of Augmentin 875/125 BID and Doxycycline 100 MG BID (compliant). Patient notes his shortness of breath has not improved, prompting his arrival to the ED. Per the EMR, pt was hypoxic to 85 % at [facility] prior to admission - Current Medication List Current Medications: Active Medications Albuterol Sulfate (Ventolin 0.083% Nebulizer Soln -) 1 amp NEB Q4H PRN PRN Reason: SHORT OF BREATH/WHEEZING Last Admin: 05/08/19 04:45 Dose: 1 amp Albuterol/Ipratropium (Duoneb -) 1 amp NEB RQID [facility] Last Admin: 05/13/19 20:37 Dose: 1 amp Aspirin (Ecotrin -) 81 mg PO DAILY [facility] Last Admin: 05/13/19 10:34 Dose: 81 mg Atorvastatin Calcium (Lipitor -) 80 mg PO HS [facility] Last Admin: 05/13/19 22:06 Dose: 80 mg Azithromycin (Zithromax -) 500 mg PO DAILY [facility] Stop: 05/15/19 10:01 Last Admin: 05/13/19 10:33 Dose: 500 mg Budesonide/Formoterol Fumarate (Symbicort 160/4.5mcg -) 2 puff IH BID [facility] Last Admin: 05/13/19 22:09 Dose: Not Given Docusate Sodium (Colace -) 100 mg PO TID [facility] Last Admin: 05/14/19 06:45 Dose: 100 mg Ferrous Sulfate (Feosol -) 325 mg PO TIDCM [facility] Last Admin: 05/13/19 17:32 Dose: 325 mg Folic Acid (Folic Acid -) 1 mg PO DAILY [facility] Last Admin: 05/13/19 10:34 Dose: 1 mg Furosemide (Lasix Injection -) 40 mg IVPUSH BID@0600,1400 [facility] Last Admin: 05/14/19 06:45 Dose: 40 mg Lisinopril (Prinivil) 5 mg PO DAILY [facility] Last Admin: 05/13/19 12:10 Dose: 5 mg Methylprednisolone Sodium Succinate (Solu-Medrol -) 40 mg IVPUSH BID [facility] Last Admin: 05/13/19 22:06 Dose: 40 mg Metolazone (Zaroxolyn -) 2.5 mg PO Q2D@1330 [facility] Last Admin: 05/12/19 14:42 Dose: 2.5 mg Metoprolol Succinate (Toprol Xl -) 50 mg PO DAILY [facility] Last Admin: 05/13/19 10:34 Dose: 50 mg Montelukast Sodium (Singulair -) 10 mg PO HS [facility] Last Admin: 05/13/19 22:06 Dose: 10 mg Multivitamins/Minerals/Vitamin C (Tab-A-Vit -) 1 tab PO DAILY [facility] Last Admin: 05/13/19 10:34 Dose: 1 tab Senna (Senna -) 2 tab PO HS PRN PRN Reason: CONSTIPATION Last Admin: 05/09/19 00:21 Dose: 2 tab Thiamine HCl (Vitamin B1 -) 100 mg PO DAILY [facility] Last Admin: 05/13/19 10:34 Dose: 100 mg Ticagrelor (Brilinta -) 90 mg PO BID [facility] Last Admin: 05/13/19 22:06 Dose: 90 mg - Objective Vital Signs: Vital Signs Temperature 97.8 F 05/14/19 06:00 Pulse Rate 74 05/14/19 06:00 Respiratory Rate 18 05/14/19 06:00 Blood Pressure 96/55 L 05/14/19 06:00 O2 Sat by Pulse Oximetry (%) 100 05/14/19 00:03 Constitutional: Yes: Well Nourished, No Distress, Calm Eyes: Yes: WNL, Conjunctiva Clear, EOM Intact HENT: Yes: WNL, Atraumatic, Normocephalic Neck: Yes: WNL, Supple, Trachea Midline Cardiovascular: Yes: WNL, Regular Rate and Rhythm Respiratory: Yes: WNL, Regular, CTA Bilaterally, Diminished (at bases) Gastrointestinal: Yes: WNL, Normal Bowel Sounds, Soft ...Rectal Exam: Yes: Deferred Genitourinary: Yes: WNL Breast(s): Yes: WNL Musculoskeletal: Yes: WNL Extremities: Yes: WNL Edema: No Peripheral Pulses WNL: Yes Integumentary: Yes: WNL Neurological: Yes: WNL, Alert, Oriented ...Motor Strength: WNL Psychiatric: Yes: WNL, Alert, Oriented Labs: INR, PTT INR 1.52 (0.83-1.09) H 05/06/19 05:50 - ....Imaging Chest X-ray: Report Reviewed (Effusion v. inflitate), Image Reviewed Problem List - Problems (1) CHF (congestive heart failure) Assessment/Plan: Decompensated CHF continue lasix 40mg IV BID, can change to PO lasix tomorrow addition of zaroxlyn 2.5mg TIW Daily weights admission wt 75kg down to 71kg) TTE with global hypokenesis, EF 25-30% Cardiology consult appreciated Code(s): I50.9 - HEART FAILURE, UNSPECIFIED (2) PNA (pneumonia) Assessment/Plan: -CXR effusion v. inflitate, O2 requirement decreasing over past couple of day. Able to ambulate to end of [place] without O2 -appreciate Pulmonary recommendations -Suppplental O2 NC with NIPPV PRN -Duo Nebs prn -Maintain 02 Sat 92% on Supp o2 -Trilogy vent approved and will be delivered to home today and will assess for need of O2 @ home, pending pre/post O2 sats Code(s): J18.9 - PNEUMONIA, UNSPECIFIED ORGANISM (3) Anemia Assessment/Plan: monitor CBC transfuse for hgb 7 given cardiac disease or symptomatic continue iron and folic acid Code(s): D64.9 - ANEMIA, UNSPECIFIED Qualifiers: Anemia type: iron deficiency (4) Essential hypertension Assessment/Plan: patient normotensive continue lisinipril tele monitoring Code(s): I10 - ESSENTIAL (PRIMARY) HYPERTENSION (5) Hx of cardiac pacemaker Assessment/Plan: appreciate cardiology consult confirmed that device is an AICD and will interrogate as outpatient Code(s): Z95.0 - PRESENCE OF CARDIAC PACEMAKER (6) S/P CABG (coronary artery bypass graft) Code(s): Z95.1 - PRESENCE OF AORTOCORONARY BYPASS GRAFT (7) Polysubstance (including opioids) dependence without physiological dependence Assessment/Plan: continue thiamine, MVI, and folic acid patient states that he doen not want to return back to to [facility] after discharge Code(s): F19.20 - OTHER PSYCHOACTIVE SUBSTANCE DEPENDENCE, UNCOMPLICATED (8) Hx of hyperlipidemia Assessment/Plan: continue atorvastatin Code(s): Z86.39 - PERSONAL HISTORY OF ENDO, NUTRITIONAL AND METABOLIC DISEASE (9) Asthma Code(s): J45.909 - UNSPECIFIED ASTHMA, UNCOMPLICATED (10) COPD (chronic obstructive pulmonary disease) Assessment/Plan: continue inhaled steroids/bronchodilators taper solumedrol pulmonary consult appreciate NIPPV as needed at night pre/post ambulation oxygenation to determine home O2 requirement Code(s): J44.9 - CHRONIC OBSTRUCTIVE PULMONARY DISEASE, UNSPECIFIED Qualifiers: Emphysema type: unspecified (11) Thoracic aortic aneurysm Assessment/Plan: outpatient surveillance Code(s): I71.2 - THORACIC AORTIC ANEURYSM, WITHOUT RUPTURE (12) Prophylactic measure Assessment/Plan: FEN cardiac diet no fluids needed monitor electrolytes DVT Proph continue brilinta ambulation ad muna Dispo maintain as in patient full code discharge planning Code(s): Z29.9 - ENCOUNTER FOR PROPHYLACTIC MEASURES, UNSPECIFIED Visit type - Emergency Visit Emergency Visit: Yes ED Registration Date: 05/05/19 Care time: The patient presented to the Emergency Department on the above date and was hospitalized for further evaluation of their emergent condition. - New Patient This patient is new to me today: No - Critical Care Critical Care patient: No - Discharge Referral Referred to [facility] Med P.C.: No
[2019-05-14 07:24] LABS: ALBUMIN 3.1 g/dl (3.4-5.0); BLOOD UREA NITROGEN 50.6 mg/dL (7-18); CALCIUM 9.1 mg/dL (8.5-10.1); CREATININE 1.2 mg/dL (0.55-1.3); MAGNESIUM 2.5 mg/dL (1.8-2.4); POTASSIUM 4.1 mmol/L (3.5-5.1); TOT PROT 6.8 g/dl (6.4-8.2)
[2019-05-14 07:47] LABS: PLATELET COUNT 311 K/MM3 (134-434)
--- NOTE | 2019-05-14 09:20 | PN ---
Progress Note, Physician Chief Complaint: seen and examined No new complaints Feeling better TELE: NSR w/ short run NSVT (3 beats) - Current Medication List Current Medications: Active Medications Albuterol Sulfate (Ventolin 0.083% Nebulizer Soln -) 1 amp NEB Q4H PRN PRN Reason: SHORT OF BREATH/WHEEZING Last Admin: 05/08/19 04:45 Dose: 1 amp Albuterol/Ipratropium (Duoneb -) 1 amp NEB RQID [facility] Last Admin: 05/14/19 07:00 Dose: 1 amp Aspirin (Ecotrin -) 81 mg PO DAILY [facility] Last Admin: 05/13/19 10:34 Dose: 81 mg Atorvastatin Calcium (Lipitor -) 80 mg PO HS [facility] Last Admin: 05/13/19 22:06 Dose: 80 mg Azithromycin (Zithromax -) 500 mg PO DAILY [facility] Stop: 05/15/19 10:01 Last Admin: 05/13/19 10:33 Dose: 500 mg Budesonide/Formoterol Fumarate (Symbicort 160/4.5mcg -) 2 puff IH BID [facility] Last Admin: 05/13/19 22:09 Dose: Not Given Docusate Sodium (Colace -) 100 mg PO TID [facility] Last Admin: 05/14/19 06:45 Dose: 100 mg Ferrous Sulfate (Feosol -) 325 mg PO TIDCM [facility] Last Admin: 05/13/19 17:32 Dose: 325 mg Folic Acid (Folic Acid -) 1 mg PO DAILY [facility] Last Admin: 05/13/19 10:34 Dose: 1 mg Furosemide (Lasix Injection -) 40 mg IVPUSH BID@0600,1400 [facility] Last Admin: 05/14/19 06:45 Dose: 40 mg Lisinopril (Prinivil) 5 mg PO DAILY [facility] Last Admin: 05/13/19 12:10 Dose: 5 mg Methylprednisolone Sodium Succinate (Solu-Medrol -) 40 mg IVPUSH BID [facility] Last Admin: 05/13/19 22:06 Dose: 40 mg Metolazone (Zaroxolyn -) 2.5 mg PO Q2D@1330 [facility] Last Admin: 05/12/19 14:42 Dose: 2.5 mg Metoprolol Succinate (Toprol Xl -) 50 mg PO DAILY [facility] Last Admin: 06/27/19 10:34 Dose: 50 mg Montelukast Sodium (Singulair -) 10 mg PO HS [facility] Last Admin: 05/13/19 22:06 Dose: 10 mg Multivitamins/Minerals/Vitamin C (Tab-A-Vit -) 1 tab PO DAILY [facility] Last Admin: 05/13/19 10:34 Dose: 1 tab Senna (Senna -) 2 tab PO HS PRN PRN Reason: CONSTIPATION Last Admin: 05/09/19 00:21 Dose: 2 tab Sodium Chloride (Sodium Chloride Tablet -) 1 gm PO BID [facility] Thiamine HCl (Vitamin B1 -) 100 mg PO DAILY [facility] Last Admin: 05/13/19 10:34 Dose: 100 mg Ticagrelor (Brilinta -) 90 mg PO BID [facility] Last Admin: 05/13/19 22:06 Dose: 90 mg - Objective Vital Signs: Vital Signs Temperature 97.8 F 05/14/19 06:00 Pulse Rate 74 05/14/19 06:00 Respiratory Rate 18 05/14/19 06:00 Blood Pressure 96/55 L 05/14/19 06:00 O2 Sat by Pulse Oximetry (%) 92 L 05/14/19 08:04 Constitutional: Yes: No Distress Cardiovascular: Yes: Regular Rate and Rhythm Respiratory: Yes: CTA Bilaterally Gastrointestinal: Yes: Soft Edema: Yes Edema: LLE: 1+, RLE: 1+ Neurological: Yes: Alert, Oriented ...Motor Strength: WNL Labs: CBC, BMP 05/14/19 05:50 05/14/19 05:50 INR, PTT INR 1.52 (0.83-1.09) H 05/06/19 05:50 - ....Imaging EKG: Image Reviewed Assessment/Plan IMP: 1. Acute on chronic systolic CHF 2. CAD 3. History of bio MVR 4. History of Polysubstance Abuse, non-adherence with meds/follow up. Acute on chronic HF exacerbation, shortness of breath: - cont iv lasix- we are approaching euvolemic state. BUN is up. Would try to switch to PO over weekend - monitor daily weights, Cr, lytes - continue ACEI, bb COPD: - steroids, nebs per pulm CAD: - trop neg x 2, EKG unchanged from prior - cont aspirin, statin, ticagrelor - outpatient regimen. Per patient, no PCI within last 12 months. This needs to be verified by review of old records prior to discontinuation of Brilinta. 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 ICD: Patient card indicates he has a Medtronic ICD - Routine outpatient interrogation. Thoracic aorta aneurysm: - outpatient surveillance HTN: - cont home meds HLD: - cont statin
[2019-05-14 10:04] LABS: ANISOCYTOSIS 2+; MACROCYTOSIS 1+; OVALOCYTE 1+; PLATELET ESTIMATE NORMAL
[2019-05-14] MEDS ORDERED: PT OWN MED DRAWER 7, Y5N ONE ×2 (10:25→22:13)
[2019-05-14] MEDS: FOLIC ACID 1 MG TABLET (FP) PO SCH (10:33)
[2019-05-14] MEDS: FERROUS SO4 325 MG TABLET (FP) PO SCH ×2 (10:33→13:00)
[2019-05-14] MEDS: MULTIVITAMINS (DAILY MVI) TABLET (FP) PO SCH (10:33)
[2019-05-14] MEDS: ASPIRIN COATED 81 MG TABLET.EC PO SCH (10:33)
[2019-05-14] MEDS: AZITHROMYCIN 250 MG TABLET PO SCH (10:33)
[2019-05-14] MEDS: LISINOPRIL 5 MG TABLET (FP) PO SCH (10:33)
[2019-05-14] MEDS: SODIUM CHLORIDE 1 GM TABLET PO SCH ×2 (10:33→23:11)
[2019-05-14] MEDS: methylPREDNISolone NA SUCC 40 MG/1 ML VIAL IVPUSH SCH (10:34)
[2019-05-14] MEDS: TICAGRELOR 90 MG TABLET PO SCH ×2 (10:34→23:11)
[2019-05-14] MEDS: THIAMINE HCL 100 MG TABLET (FP) PO SCH (10:34)
[2019-05-14] MEDS: BUDESONIDE/FORMETEROL FUMARATE 160/4.5 mcg INHALER IH SCH ×2 (10:34→23:12)
--- NOTE | 2019-05-14 10:44 | PN ---
Progress Note, Physician History of Present Illness: pulmonary alert,feeling better,-c/o sob,-cp - Current Medication List Current Medications: Active Medications Albuterol Sulfate (Ventolin 0.083% Nebulizer Soln -) 1 amp NEB Q4H PRN PRN Reason: SHORT OF BREATH/WHEEZING Last Admin: 05/08/19 04:45 Dose: 1 amp Albuterol/Ipratropium (Duoneb -) 1 amp NEB RQID [facility] Last Admin: 05/14/19 07:00 Dose: 1 amp Aspirin (Ecotrin -) 81 mg PO DAILY [facility] Last Admin: 05/14/19 10:33 Dose: 81 mg Atorvastatin Calcium (Lipitor -) 80 mg PO HS [facility] Last Admin: 05/13/19 22:06 Dose: 80 mg Azithromycin (Zithromax -) 500 mg PO DAILY [facility] Stop: 05/15/19 10:01 Last Admin: 05/14/19 10:33 Dose: 500 mg Budesonide/Formoterol Fumarate (Symbicort 160/4.5mcg -) 2 puff IH BID [facility] Last Admin: 05/14/19 10:34 Dose: 2 puff Docusate Sodium (Colace -) 100 mg PO TID [facility] Last Admin: 05/14/19 06:45 Dose: 100 mg Ferrous Sulfate (Feosol -) 325 mg PO TIDCM [facility] Last Admin: 05/14/19 10:33 Dose: 325 mg Folic Acid (Folic Acid -) 1 mg PO DAILY [facility] Last Admin: 05/14/19 10:33 Dose: 1 mg Furosemide (Lasix Injection -) 40 mg IVPUSH BID@0600,1400 [facility] Last Admin: 05/14/19 06:45 Dose: 40 mg Lisinopril (Prinivil) 5 mg PO DAILY [facility] Last Admin: 05/14/19 10:33 Dose: 5 mg Methylprednisolone Sodium Succinate (Solu-Medrol -) 40 mg IVPUSH BID [facility] Last Admin: 05/14/19 10:34 Dose: 40 mg Metolazone (Zaroxolyn -) 2.5 mg PO Q2D@1330 [facility] Last Admin: 05/12/19 14:42 Dose: 2.5 mg Metoprolol Succinate (Toprol Xl -) 50 mg PO DAILY [facility] Last Admin: 05/14/19 10:33 Dose: 50 mg Montelukast Sodium (Singulair -) 10 mg PO HS [facility] Last Admin: 05/13/19 22:06 Dose: 10 mg Multivitamins/Minerals/Vitamin C (Tab-A-Vit -) 1 tab PO DAILY [facility] Last Admin: 05/14/19 10:33 Dose: 1 tab Senna (Senna -) 2 tab PO HS PRN PRN Reason: CONSTIPATION Last Admin: 05/09/19 00:21 Dose: 2 tab Sodium Chloride (Sodium Chloride Tablet -) 1 gm PO BID [facility] Last Admin: 05/14/19 10:33 Dose: 1 gm Thiamine HCl (Vitamin B1 -) 100 mg PO DAILY [facility] Last Admin: 05/14/19 10:34 Dose: 100 mg Ticagrelor (Brilinta -) 90 mg PO BID [facility] Last Admin: 05/14/19 10:34 Dose: 90 mg - Objective Vital Signs: Vital Signs Temperature 97.8 F 05/14/19 06:00 Pulse Rate 74 05/14/19 06:00 Respiratory Rate 18 05/14/19 06:00 Blood Pressure 96/55 L 05/14/19 06:00 O2 Sat by Pulse Oximetry (%) 92 L 05/14/19 08:04 Constitutional: Yes: Well Nourished, Calm Eyes: Yes: WNL HENT: Yes: WNL Neck: Yes: WNL Cardiovascular: Yes: Regular Rate and Rhythm, S1, S2 Respiratory: Yes: Diminished Gastrointestinal: Yes: Normal Bowel Sounds, Soft Extremities: Yes: WNL Edema: Yes Labs: CBC, BMP 05/14/19 05:50 05/14/19 05:50 INR, PTT INR 1.52 (0.83-1.09) H 05/06/19 05:50 Assessment/Plan Problem List - Problems (1) CHF (congestive heart failure) Code(s): I50.9 - HEART FAILURE, UNSPECIFIED (2) CAD (coronary artery disease) Code(s): I25.10 - ATHSCL HEART DISEASE OF [place] CORONARY ARTERY W/O ANG PCTRS Qualifiers: Coronary Disease-Associated Artery/Lesion type: bypass graft (3) COPD (chronic obstructive pulmonary disease) Code(s): J44.9 - CHRONIC OBSTRUCTIVE PULMONARY DISEASE, UNSPECIFIED Qualifiers: Emphysema type: unspecified (4) Essential hypertension Code(s): I10 - ESSENTIAL (PRIMARY) HYPERTENSION (5) S/P CABG (coronary artery bypass graft) Code(s): Z95.1 - PRESENCE OF AORTOCORONARY BYPASS GRAFT Assessment/Plan Decompensated CHF improving Acute COPD Exacerbation Less likely Pneumonia CAD s/p CABG h/o MVR HTN Hyperlipidemia Polysubstance Abuse - Medrol taper - IV lasix - monitor urine output, creatinine - inhaled bronchodilators standing and PRN - outpt PFTs - DVT prophylaxis DR BEATTY
[2019-05-14] MEDS: METOLAZONE 2.5 MG TABLET (FP) PO SCH (14:00)
[2019-05-14] MEDS: MONTELUKAST NA 10 MG TABLET PO SCH (23:11)
[2019-05-14] MEDS: ATORVASTATIN CA 80 MG TABLET (FP) PO SCH (23:11)
[2019-05-15] MEDS: FUROSEMIDE 40 MG/4 ML INJECTABLE VIAL IVPUSH SCH (06:38)
[2019-05-15] MEDS: DOCUSATE SODIUM 100 MG CAPSULE (FP) PO SCH ×3 (06:38→22:18)
[2019-05-15 06:57] LABS: BASO % 0.1 % (0-2.0); EOS % 0.6 % (0-4.5); HEMATOCRIT 26.7 % (35.4-49); HEMOGLOBIN 8.5 GM/dL (11.7-16.9); LYMPH % 11.9 % (8-40); MCH 25.7 pg (25.7-33.7); MEAN CELL VOLUME 80.3 fl (80-96); MEAN PLT VOLUME 7.8 fl (7.5-11.1); MONO % 8.6 % (3.8-10.2); NEUT % 78.8 % (42.8-82.8); PLATELET COUNT 332 K/MM3 (134-434); RBC 3.32 M/mm3 (4.00-5.60); RDW 23.1 % (11.9-15.9); WHITE BLOOD COUNT 11.8 K/mm3 (4.0-10.0)
[2019-05-15 07:26] LABS: BILIRUBIN,TOTAL 1.5 mg/dL (0.2-1); BLOOD UREA NITROGEN 59.4 mg/dL (7-18); CALCIUM 8.9 mg/dL (8.5-10.1); CREATININE 1.3 mg/dL (0.55-1.3); MAGNESIUM 2.5 mg/dL (1.8-2.4); TOT PROT 6.6 g/dl (6.4-8.2)
[2019-05-15] MEDS: ALBUTEROL SO4 2.5/IPRATROPIUM 0.5 INH SOL 3 ML VIAL.NEB. NEB SCH ×3 (08:08→15:26)
--- NOTE | 2019-05-15 09:05 | PN ---
Progress Note, Physician Chief Complaint: sob History of Present Illness: sob has resolved. walking with no sx's no cp, palpit, leg swelling - Current Medication List Current Medications: Active Medications Albuterol Sulfate (Ventolin 0.083% Nebulizer Soln -) 1 amp NEB Q4H PRN PRN Reason: SHORT OF BREATH/WHEEZING Last Admin: 05/08/19 04:45 Dose: 1 amp Albuterol/Ipratropium (Duoneb -) 1 amp NEB RQID [facility] Last Admin: 05/14/19 20:34 Dose: 1 amp Aspirin (Ecotrin -) 81 mg PO DAILY [facility] Last Admin: 05/14/19 10:33 Dose: 81 mg Atorvastatin Calcium (Lipitor -) 80 mg PO HS [facility] Last Admin: 05/14/19 23:11 Dose: 80 mg Azithromycin (Zithromax -) 500 mg PO DAILY [facility] Stop: 05/15/19 10:01 Last Admin: 05/14/19 10:33 Dose: 500 mg Budesonide/Formoterol Fumarate (Symbicort 160/4.5mcg -) 2 puff IH BID [facility] Last Admin: 05/14/19 23:12 Dose: Not Given Docusate Sodium (Colace -) 100 mg PO TID [facility] Last Admin: 05/15/19 06:38 Dose: 100 mg Ferrous Sulfate (Feosol -) 325 mg PO TIDCM [facility] Last Admin: 05/14/19 13:00 Dose: 325 mg Folic Acid (Folic Acid -) 1 mg PO DAILY [facility] Last Admin: 05/14/19 10:33 Dose: 1 mg Furosemide (Lasix Injection -) 40 mg IVPUSH BID@0600,1400 [facility] Last Admin: 05/15/19 06:38 Dose: 40 mg Lisinopril (Prinivil) 5 mg PO DAILY [facility] Last Admin: 05/14/19 10:33 Dose: 5 mg Metolazone (Zaroxolyn -) 2.5 mg PO Q2D@1330 [facility] Last Admin: 05/14/19 14:00 Dose: 2.5 mg Metoprolol Succinate (Toprol Xl -) 50 mg PO DAILY [facility] Last Admin: 05/14/19 10:33 Dose: 50 mg Montelukast Sodium (Singulair -) 10 mg PO HS [facility] Last Admin: 05/14/19 23:11 Dose: 10 mg Multivitamins/Minerals/Vitamin C (Tab-A-Vit -) 1 tab PO DAILY [facility] Last Admin: 05/14/19 10:33 Dose: 1 tab Prednisone (Deltasone -) 10 mg PO BID [facility] Senna (Senna -) 2 tab PO HS PRN PRN Reason: CONSTIPATION Last Admin: 05/09/19 00:21 Dose: 2 tab Sodium Chloride (Sodium Chloride Tablet -) 1 gm PO BID [facility] Last Admin: 05/14/19 23:11 Dose: 1 gm Thiamine HCl (Vitamin B1 -) 100 mg PO DAILY [facility] Last Admin: 05/14/19 10:34 Dose: 100 mg Ticagrelor (Brilinta -) 90 mg PO BID [facility] Last Admin: 05/14/19 23:11 Dose: 90 mg - Objective Vital Signs: Vital Signs Temperature 98.2 F 05/15/19 06:00 Pulse Rate 73 05/15/19 06:00 Respiratory Rate 20 05/15/19 06:00 Blood Pressure 83/59 L 05/15/19 06:00 O2 Sat by Pulse Oximetry (%) 99 05/14/19 22:00 Constitutional: Yes: Well Nourished, No Distress, Calm Cardiovascular: Yes: Regular Rate and Rhythm, S1, S2. No: JVD, Gallop, Murmur Respiratory: Yes: Regular, CTA Bilaterally. No: Accessory Muscle Use, Rales, Wheezes Extremities: No: Cold Edema: No Neurological: Yes: Alert, Oriented Psychiatric: No: Agitated Labs: CBC, BMP 05/15/19 05:58 05/15/19 05:58 INR, PTT INR 1.52 (0.83-1.09) H 05/06/19 05:50 Assessment/Plan Echo 04/2019: tds, LV mildly dilated, severely reduced LV function, RV nl, bio MVR, mild TR, RVSP elevated 40-50 mmHg, mild IMP: 1. Acute on chronic systolic CHF 2. CAD 3. History of bio MVR 4. History of Polysubstance Abuse, non-adherence with meds/follow up. Acute on chronic syst HF exacerbation (EF severely reduced), bio MVR normally functioning, s/p ICD (medtronic): - receiving lasix 40 iv bid here + metolazone 2.5 daily. wt 168-->159. bun rising (creat up slightly), hypotensive to 80s systolic overnight. d/c lasix - monitor BP--gentle fluids if syst remains <90 - metoprolol succ 50, lisinopril 5--hold for now for hypotension, consider split dose administration if soft bp's continue - outpt cardio f/u (josette) COPD: - steroids, nebs per pulm - sx's improved anemia: - hgb 7s-8s here - no baseline values/trend available - iron, sat, ferritin all WNL. check stool occult blood - H/H stable here hence not actively significantly bleeding (rising bun is sec to overdiuresis) - o/w, per hospitalist CAD: - notes state h/o CABG. suspect pt has had PCIs as he was maintained on DAPT ( aspirin plus ticagrelor by prior cardio). he denies any PCI - pt advised that his current meds carry bleeding risk, though there is substantial risk to stopping ticagrelor if he has compelling indication. he was advised that it is very important to f/u with his connelly cardio after discharge to clarify treatment plan (as well as monitor his HF status). he verbalizes understanding and agrees to f/u with josette guerra ("dr ordoñez") shortly after discharge - trop neg x 2, EKG unchanged from prior--do not suspect ACS currently - cont aspirin, hi intensity statin, ticagrelor (outpatient regimen) for now Thoracic aorta aneurysm (ascending), 4.5 cm: - routine outpatient surveillance - good bp control, at targets here
--- NOTE | 2019-05-15 09:15 | PN ---
Progress Note, Physician History of Present Illness: pulmonary alert,no distress,-cp,-sob,hypotensive - Current Medication List Current Medications: Active Medications Albuterol Sulfate (Ventolin 0.083% Nebulizer Soln -) 1 amp NEB Q4H PRN PRN Reason: SHORT OF BREATH/WHEEZING Last Admin: 05/08/19 04:45 Dose: 1 amp Albuterol/Ipratropium (Duoneb -) 1 amp NEB RQID [facility] Last Admin: 05/14/19 20:34 Dose: 1 amp Aspirin (Ecotrin -) 81 mg PO DAILY [facility] Last Admin: 05/14/19 10:33 Dose: 81 mg Atorvastatin Calcium (Lipitor -) 80 mg PO HS [facility] Last Admin: 05/14/19 23:11 Dose: 80 mg Azithromycin (Zithromax -) 500 mg PO DAILY [facility] Stop: 05/15/19 10:01 Last Admin: 05/14/19 10:33 Dose: 500 mg Budesonide/Formoterol Fumarate (Symbicort 160/4.5mcg -) 2 puff IH BID [facility] Last Admin: 05/14/19 23:12 Dose: Not Given Docusate Sodium (Colace -) 100 mg PO TID [facility] Last Admin: 05/15/19 06:38 Dose: 100 mg Ferrous Sulfate (Feosol -) 325 mg PO TIDCM [facility] Last Admin: 05/14/19 13:00 Dose: 325 mg Folic Acid (Folic Acid -) 1 mg PO DAILY [facility] Last Admin: 05/14/19 10:33 Dose: 1 mg Lisinopril (Prinivil) 5 mg PO DAILY [facility] Last Admin: 05/14/19 10:33 Dose: 5 mg Metoprolol Succinate (Toprol Xl -) 50 mg PO DAILY [facility] Last Admin: 05/14/19 10:33 Dose: 50 mg Montelukast Sodium (Singulair -) 10 mg PO HS [facility] Last Admin: 05/14/19 23:11 Dose: 10 mg Multivitamins/Minerals/Vitamin C (Tab-A-Vit -) 1 tab PO DAILY [facility] Last Admin: 05/14/19 10:33 Dose: 1 tab Prednisone (Deltasone -) 10 mg PO BID [facility] Senna (Senna -) 2 tab PO HS PRN PRN Reason: CONSTIPATION Last Admin: 06/23/19 00:21 Dose: 2 tab Sodium Chloride (Sodium Chloride Tablet -) 1 gm PO BID [facility] Last Admin: 05/14/19 23:11 Dose: 1 gm Thiamine HCl (Vitamin B1 -) 100 mg PO DAILY [facility] Last Admin: 05/14/19 10:34 Dose: 100 mg Ticagrelor (Brilinta -) 90 mg PO BID [facility] Last Admin: 05/14/19 23:11 Dose: 90 mg - Objective Vital Signs: Vital Signs Temperature 98.2 F 05/15/19 06:00 Pulse Rate 73 05/15/19 06:00 Respiratory Rate 20 05/15/19 06:00 Blood Pressure 83/59 L 05/15/19 06:00 O2 Sat by Pulse Oximetry (%) 99 05/14/19 22:00 Constitutional: Yes: Well Nourished, Calm Eyes: Yes: WNL HENT: Yes: WNL Neck: Yes: WNL Cardiovascular: Yes: Regular Rate and Rhythm, S1, S2 Respiratory: Yes: CTA Bilaterally Gastrointestinal: Yes: Normal Bowel Sounds, Soft Extremities: Yes: WNL Edema: No Labs: CBC, BMP 05/15/19 05:58 05/15/19 05:58 INR, PTT INR 1.52 (0.83-1.09) H 05/06/19 05:50 Assessment/Plan Problem List - Problems (1) CHF (congestive heart failure) Code(s): I50.9 - HEART FAILURE, UNSPECIFIED (2) CAD (coronary artery disease) Code(s): I25.10 - ATHSCL HEART DISEASE OF [place] CORONARY ARTERY W/O ANG PCTRS Qualifiers: Coronary Disease-Associated Artery/Lesion type: bypass graft (3) COPD (chronic obstructive pulmonary disease) Code(s): J44.9 - CHRONIC OBSTRUCTIVE PULMONARY DISEASE, UNSPECIFIED Qualifiers: Emphysema type: unspecified (4) Essential hypertension Code(s): I10 - ESSENTIAL (PRIMARY) HYPERTENSION (5) S/P CABG (coronary artery bypass graft) Code(s): Z95.1 - PRESENCE OF AORTOCORONARY BYPASS GRAFT Assessment/Plan Decompensated CHF improving Acute COPD Exacerbation improved Less likely Pneumonia CAD s/p CABG h/o MVR HTN Hyperlipidemia Polysubstance Abuse Hyponatremia - Prednisone - IV lasix - monitor urine output, creatinine - inhaled bronchodilators standing and PRN - outpt PFTs - DVT prophylaxis - monitor lytes,na DR BRILL
[2019-05-15] MEDS: LISINOPRIL 5 MG TABLET (FP) PO SCH (09:20)
[2019-05-15] MEDS ORDERED: methylPREDNISolone NA SUCC 40 MG/1 ML VIAL IVPUSH SCH (10:00)
[2019-05-15] MEDS ORDERED: MAG HYDROX/AL HYDROX/SIMETH 30 ML UNIT-DOSE CUP PO ONE (10:30)
[2019-05-15] MEDS: FOLIC ACID 1 MG TABLET (FP) PO SCH (10:35)
[2019-05-15] MEDS: ASPIRIN COATED 81 MG TABLET.EC PO SCH (10:35)
[2019-05-15] MEDS: AZITHROMYCIN 250 MG TABLET PO SCH (10:35)
[2019-05-15] MEDS: MULTIVITAMINS (DAILY MVI) TABLET (FP) PO SCH (10:35)
[2019-05-15] MEDS: predniSONE 10 MG TABLET (UD) PO SCH ×2 (10:35→22:18)
[2019-05-15] MEDS: FERROUS SO4 325 MG TABLET (FP) PO SCH ×3 (10:36→17:25)
[2019-05-15] MEDS: TICAGRELOR 90 MG TABLET PO SCH ×2 (10:36→22:18)
[2019-05-15] MEDS: SODIUM CHLORIDE 1 GM TABLET PO SCH ×2 (10:36→22:19)
[2019-05-15] MEDS: THIAMINE HCL 100 MG TABLET (FP) PO SCH (10:37)
[2019-05-15] MEDS: BUDESONIDE/FORMETEROL FUMARATE 160/4.5 mcg INHALER IH SCH ×2 (10:40→22:22)
--- NOTE | 2019-05-15 11:50 | PN ---
Physical Exam: SUBJECTIVE: Patient seen and examined He is much better today and has low bp today he has no symptoms and seen by pulmonary and cardiac OBJECTIVE: Vital Signs Period Temp Pulse Resp BP Sys/Hernandez Pulse Ox Last 24 Hr 97.7 F-98.3 F 66-91 18-20 80-96/48-59 95-99 GENERAL: The patient is awake, alert, and fully oriented, in no acute distress. HEAD: Normal with no signs of trauma. EYES: PERRL, extraocular movements intact, sclera anicteric, conjunctiva clear. No ptosis. ENT: Ears normal, nares patent, oropharynx clear without exudates, moist mucous membranes. NECK: Trachea midline, full range of motion, supple. LUNGS: Breath sounds equal, clear to auscultation bilaterally, no wheezes, no crackles, no accessory muscle use. HEART: iregular rate and rhythm, S1, S2 ABDOMEN: Soft, nontender, nondistended, normoactive bowel sounds, no guarding, no rebound, no hepatosplenomegaly, no masses. EXTREMITIES: 2+ pulses, warm, well-perfused, no edema. NEUROLOGICAL: Cranial nerves II through XII grossly intact. Normal speech, gait not observed. Laboratory Results - last 24 hr 05/15/19 05/15/19 05:58 05:58 WBC 11.8 H RBC 3.32 L Hgb 8.5 L Hct 26.7 L MCV 80.3 MCH 25.7 MCHC 32.0 RDW 23.1 H Plt Count 332 MPV 7.8 Absolute Neuts (auto) 9.3 H Neutrophils % 78.8 Lymphocytes % 11.9 D Monocytes % 8.6 D Eosinophils % 0.6 Basophils % 0.1 Nucleated RBC % 0 Sodium 129 L Potassium 4.0 Chloride 91 L Carbon Dioxide 31 Anion Gap 6 L BUN 59.4 H Creatinine 1.3 Est GFR (CKD-EPI)AfAm 67.30 Est GFR (CKD-EPI)NonAf 58.07 Random Glucose 74 Calcium 8.9 Magnesium 2.5 H Total Bilirubin 1.5 H AST 32 ALT 48 Alkaline Phosphatase 122 H Total Protein 6.6 Albumin 3.0 L Active Medications Generic Name Dose Route Start Last Admin Trade Name Freq PRN Reason Stop Dose Admin Albuterol Sulfate 1 amp 05/06/19 13:01 05/08/19 04:45 Ventolin 0.083% Nebulizer Soln - NEB 1 amp Q4H PRN Administration SHORT OF BREATH/WHEEZING Albuterol/Ipratropium 1 amp 05/06/19 16:00 05/15/19 08:08 Duoneb - NEB 1 amp RQID MICHELLE Administration Aspirin 81 mg 05/06/19 10:00 05/15/19 10:35 Ecotrin - PO 81 mg DAILY MICHELLE Administration Atorvastatin Calcium 80 mg 05/05/19 22:00 05/14/19 23:11 Lipitor - PO 80 mg HS MICHELLE Administration Budesonide/Formoterol Fumarate 2 puff 05/05/19 22:00 05/15/19 10:40 Symbicort 160/4.5mcg - IH 2 puff BID MICHELLE Administration Docusate Sodium 100 mg 05/12/19 14:00 05/15/19 06:38 Colace - PO 100 mg TID MICHELLE Administration Ferrous Sulfate 325 mg 05/06/19 12:00 05/15/19 10:36 Feosol - PO 325 mg TIDCM MICHELLE Administration Folic Acid 1 mg 05/06/19 10:00 05/15/19 10:35 Folic Acid - PO 1 mg DAILY MICHELLE Administration Lisinopril 5 mg 05/13/19 12:00 05/15/19 09:20 Prinivil PO Not Given DAILY [facility] Metoprolol Succinate 50 mg 05/06/19 10:00 05/15/19 10:36 Toprol Xl - PO Not Given DAILY [facility] Montelukast Sodium 10 mg 05/05/19 22:00 05/14/19 23:11 Singulair - PO 10 mg HS MICHELLE Administration Multivitamins/Minerals/Vitamin C 1 tab 05/06/19 10:00 05/15/19 10:35 Tab-A-Vit - PO 1 tab DAILY [facility] Administration Prednisone 10 mg 05/15/19 10:00 05/15/19 10:35 Deltasone - PO 10 mg BID MICHELLE Administration Senna 2 tab 05/08/19 23:31 05/09/19 00:21 Senna - PO 2 tab HS PRN Administration CONSTIPATION Sodium Chloride 1 gm 05/14/19 10:00 05/15/19 10:36 Sodium Chloride Tablet - PO 1 gm BID MICHELLE Administration Thiamine HCl 100 mg 05/06/19 10:00 05/15/19 10:37 Vitamin B1 - PO 100 mg DAILY [facility] Administration Ticagrelor 90 mg 05/05/19 22:00 05/15/19 10:36 Brilinta - PO 90 mg BID [facility] Administration ASSESSMENT/PLAN: copd and emphysema -pt is on iv solumedrol and will dc and start him on prednisone po continue inhaller , nebulizer and seen by pulmonary arranged home oxygen chf /cad - on lasix , prinivil and metoprolol and he is stable seen by cardio and no new recommendation Htn - his bp is low today and will hold on the bp meds will reevaluate again to restart on meds will hold on on discharge due to High lipids - continue atorvastatin Activity tolerated and he is walking without assistance Problem List - Problems (1) Anemia Code(s): D64.9 - ANEMIA, UNSPECIFIED (2) CHF (congestive heart failure) Code(s): I50.9 - HEART FAILURE, UNSPECIFIED (3) PNA (pneumonia) Code(s): J18.9 - PNEUMONIA, UNSPECIFIED ORGANISM (4) Polysubstance (including opioids) dependence without physiological dependence Code(s): F19.20 - OTHER PSYCHOACTIVE SUBSTANCE DEPENDENCE, UNCOMPLICATED (5) Thoracic aortic aneurysm Code(s): I71.2 - THORACIC AORTIC ANEURYSM, WITHOUT RUPTURE (6) CAD (coronary artery disease) Code(s): I25.10 - ATHSCL HEART DISEASE OF [place] CORONARY ARTERY W/O ANG PCTRS Qualifiers: Coronary Disease-Associated Artery/Lesion type: bypass graft (7) COPD (chronic obstructive pulmonary disease) Code(s): J44.9 - CHRONIC OBSTRUCTIVE PULMONARY DISEASE, UNSPECIFIED Qualifiers: Emphysema type: unspecified Visit type - Emergency Visit Emergency Visit: Yes ED Registration Date: 05/05/19 Care time: The patient presented to the Emergency Department on the above date and was hospitalized for further evaluation of their emergent condition. - New Patient This patient is new to me today: Yes Date on this admission: 05/15/19 - Critical Care Critical Care patient: No - Discharge Referral Referred to [facility] No
[2019-05-15] MEDS ORDERED: GLYCERIN 1 RECTAL SUPPOSITORY, ADULT RC SCH (15:00)
[2019-05-15] MEDS ORDERED: GLYCERIN 1 RECTAL SUPPOSITORY, ADULT RC ONE (15:00)
[2019-05-15] MEDS ORDERED: PT OWN MED DRAWER 7, Y5N ONE ×2 (17:35→20:44)
[2019-05-15] MEDS ORDERED: ALBUTEROL SO4 2.5/IPRATROPIUM 0.5 INH SOL 3 ML VIAL.NEB. NEB ONE (19:55)
[2019-05-15] MEDS: ATORVASTATIN CA 80 MG TABLET (FP) PO SCH (22:18)
[2019-05-15] MEDS: MONTELUKAST NA 10 MG TABLET PO SCH (22:18)
[2019-05-15] MEDS: SENNOSIDES 8.6MG TABLET (FP) PO PRN (22:22)
[2019-05-16] MEDS: DOCUSATE SODIUM 100 MG CAPSULE (FP) PO SCH (06:36)
--- NOTE | 2019-05-16 08:47 | PN ---
Progress Note, Physician Chief Complaint: sob History of Present Illness: denies sob, ambulating halls. no LH/pressyncope no leg swelling no cp, palpit + etoh history - Current Medication List Current Medications: Active Medications Aspirin (Ecotrin -) 81 mg PO DAILY [facility] Last Admin: 05/15/19 10:35 Dose: 81 mg Atorvastatin Calcium (Lipitor -) 80 mg PO HS [facility] Last Admin: 05/15/19 22:18 Dose: 80 mg Budesonide/Formoterol Fumarate (Symbicort 160/4.5mcg -) 2 puff IH BID [facility] Last Admin: 05/15/19 22:22 Dose: Not Given Docusate Sodium (Colace -) 100 mg PO TID [facility] Last Admin: 05/16/19 06:36 Dose: 100 mg Ferrous Sulfate (Feosol -) 325 mg PO TIDCM [facility] Last Admin: 05/15/19 17:25 Dose: 325 mg Folic Acid (Folic Acid -) 1 mg PO DAILY [facility] Last Admin: 05/15/19 10:35 Dose: 1 mg Lisinopril (Prinivil) 5 mg PO DAILY [facility] Last Admin: 05/15/19 09:20 Dose: Not Given Metoprolol Succinate (Toprol Xl -) 50 mg PO DAILY [facility] Last Admin: 05/15/19 10:36 Dose: Not Given Montelukast Sodium (Singulair -) 10 mg PO HS [facility] Last Admin: 05/15/19 22:18 Dose: 10 mg Multivitamins/Minerals/Vitamin C (Tab-A-Vit -) 1 tab PO DAILY [facility] Last Admin: 05/15/19 10:35 Dose: 1 tab Prednisone (Deltasone -) 10 mg PO BID [facility] Last Admin: 05/15/19 22:18 Dose: 10 mg Senna (Senna -) 2 tab PO HS PRN PRN Reason: CONSTIPATION Last Admin: 05/15/19 22:22 Dose: 2 tab Sodium Chloride (Sodium Chloride Tablet -) 1 gm PO BID [facility] Last Admin: 05/15/19 22:19 Dose: 1 gm Thiamine HCl (Vitamin B1 -) 100 mg PO DAILY [facility] Last Admin: 05/15/19 10:37 Dose: 100 mg Ticagrelor (Brilinta -) 90 mg PO BID [facility] Last Admin: 05/15/19 22:18 Dose: 90 mg - Objective Vital Signs: Vital Signs Temperature 97.9 F 05/16/19 06:00 Pulse Rate 85 05/16/19 06:00 Respiratory Rate 20 05/16/19 06:00 Blood Pressure 106/56 L 05/16/19 06:00 O2 Sat by Pulse Oximetry (%) 99 05/15/19 21:00 Constitutional: Yes: No Distress, Calm Eyes: No: Sclera Icterus HENT: No: Nasal Congestion Cardiovascular: Yes: Regular Rate and Rhythm, S1, S2, Other (PMI non diplaced). No: Gallop, Murmur Respiratory: Yes: CTA Bilaterally. No: Accessory Muscle Use, Rales, Wheezes Gastrointestinal: Yes: Normal Bowel Sounds, Soft. No: Tenderness Musculoskeletal: Yes: Other (No kyphosis) Extremities: No: Cold, Cyanosis Edema: No Integumentary: No: Jaundice Neurological: Yes: Alert, Oriented (x3) Psychiatric: No: Agitated Labs: CBC, BMP 05/15/19 05:58 05/15/19 05:58 INR, PTT INR 1.52 (0.83-1.09) H 05/06/19 05:50 Assessment/Plan Echo 04/2019: tds, LV mildly dilated, severely reduced LV function, RV nl, bio MVR, mild TR, RVSP elevated 40-50 mmHg, mild IMP: 1. Acute on chronic systolic CHF 2. CAD 3. History of bio MVR 4. History of Polysubstance Abuse, non-adherence with meds/follow up. Acute on chronic syst HF exacerbation (EF severely reduced), bio MVR normally functioning, s/p ICD (medtronic): - 05/15: receiving lasix 40 iv bid here + metolazone 2.5 daily. wt 168-->159. bun rising (creat up slightly), hypotensive to 80s systolic overnight. d/c lasix - 05/16: lasix held yest, ditto metopr 50 and lisin 5--bp's have come up, now stable but soft. will split metopr and lisinopril to bid dosing--if tolerates this with systolic >90 this afternoon he may be discharged later from cv point of view. bun/creat rising, appears euvolemic. states he was taking lasix 80 bid at home--recommend he start lasix 40 po QD tomorrow, should have cardio f/u within 7-14 days - outpt cardio f/u (josette) COPD: - steroids, nebs per pulm - sx's improved anemia: - hgb 7s-8s here - no baseline values/trend available - iron, sat, ferritin all WNL. check stool occult blood - H/H stable here hence not actively significantly bleeding (rising bun is sec to overdiuresis) - o/w, per hospitalist CAD: - notes state h/o CABG. suspect pt has had PCIs as he was maintained on DAPT ( aspirin plus ticagrelor by prior cardio). he denies any PCI - pt advised that his current meds carry bleeding risk, though there is substantial risk to stopping ticagrelor if he has compelling indication. he was advised that it is very important to f/u with his [facility] cardio after discharge to clarify treatment plan (as well as monitor his HF status). he verbalizes understanding and agrees to f/u with josette guerra ("dr ordoñez") shortly after discharge - trop neg x 2, EKG unchanged from prior--do not suspect ACS currently - cont aspirin, hi intensity statin, ticagrelor (outpatient regimen) for now Thoracic aorta aneurysm (ascending), 4.5 cm: - routine outpatient surveillance - good bp control, at targets here
--- NOTE | 2019-05-16 09:08 | PN ---
Progress Note, Physician History of Present Illness: PULMONARY ALERT,NO DISTRESS,-CP,-SOB,-COUGH - Current Medication List Current Medications: Active Medications Aspirin (Ecotrin -) 81 mg PO DAILY [facility] Last Admin: 05/15/19 10:35 Dose: 81 mg Atorvastatin Calcium (Lipitor -) 80 mg PO HS [facility] Last Admin: 05/15/19 22:18 Dose: 80 mg Budesonide/Formoterol Fumarate (Symbicort 160/4.5mcg -) 2 puff IH BID [facility] Last Admin: 05/15/19 22:22 Dose: Not Given Docusate Sodium (Colace -) 100 mg PO TID [facility] Last Admin: 05/16/19 06:36 Dose: 100 mg Ferrous Sulfate (Feosol -) 325 mg PO TIDCM [facility] Last Admin: 05/15/19 17:25 Dose: 325 mg Folic Acid (Folic Acid -) 1 mg PO DAILY [facility] Last Admin: 05/15/19 10:35 Dose: 1 mg Lisinopril (Prinivil) 2.5 mg PO BID [facility] Metoprolol Succinate (Toprol Xl -) 25 mg PO BID [facility] Montelukast Sodium (Singulair -) 10 mg PO [facility] Last Admin: 05/15/19 22:18 Dose: 10 mg Multivitamins/Minerals/Vitamin C (Tab-A-Vit -) 1 tab PO DAILY [facility] Last Admin: 05/15/19 10:35 Dose: 1 tab Prednisone (Deltasone -) 10 mg PO BID [facility] Last Admin: 05/15/19 22:18 Dose: 10 mg Senna (Senna -) 2 tab PO HS PRN PRN Reason: CONSTIPATION Last Admin: 05/15/19 22:22 Dose: 2 tab Sodium Chloride (Sodium Chloride Tablet -) 1 gm PO BID [facility] Last Admin: 05/15/19 22:19 Dose: 1 gm Thiamine HCl (Vitamin B1 -) 100 mg PO DAILY [facility] Last Admin: 05/15/19 10:37 Dose: 100 mg Ticagrelor (Brilinta -) 90 mg PO BID [facility] Last Admin: 05/15/19 22:18 Dose: 90 mg - Objective Vital Signs: Vital Signs Temperature 97.9 F 05/16/19 06:00 Pulse Rate 85 05/16/19 06:00 Respiratory Rate 20 05/16/19 06:00 Blood Pressure 106/56 L 05/16/19 06:00 O2 Sat by Pulse Oximetry (%) 99 05/15/19 21:00 Constitutional: Yes: Well Nourished, Calm Eyes: Yes: WNL HENT: Yes: WNL Neck: Yes: WNL Cardiovascular: Yes: Regular Rate and Rhythm, S1, S2 Respiratory: Yes: CTA Bilaterally Gastrointestinal: Yes: Normal Bowel Sounds, Soft Extremities: Yes: WNL Edema: No Labs: CBC, BMP Assessment/Plan Problem List - Problems (1) CHF (congestive heart failure) Code(s): I50.9 - HEART FAILURE, UNSPECIFIED (2) CAD (coronary artery disease) Code(s): I25.10 - ATHSCL HEART DISEASE OF [place] CORONARY ARTERY W/O ANG PCTRS Qualifiers: Coronary Disease-Associated Artery/Lesion type: bypass graft (3) COPD (chronic obstructive pulmonary disease) Code(s): J44.9 - CHRONIC OBSTRUCTIVE PULMONARY DISEASE, UNSPECIFIED Qualifiers: Emphysema type: unspecified (4) Essential hypertension Code(s): I10 - ESSENTIAL (PRIMARY) HYPERTENSION (5) S/P CABG (coronary artery bypass graft) Code(s): Z95.1 - PRESENCE OF AORTOCORONARY BYPASS GRAFT Assessment/Plan Decompensated CHF improved Acute COPD Exacerbation improved Less likely Pneumonia CAD s/p CABG h/o MVR HTN Hyperlipidemia Polysubstance Abuse Hyponatremia - Prednisone - lasix - inhaled bronchodilators - outpt PFTs - DVT prophylaxis - monitor estiven curtis DR
[2019-05-16] MEDS: FERROUS SO4 325 MG TABLET (FP) PO SCH ×2 (09:26→12:25)
[2019-05-16] MEDS: predniSONE 10 MG TABLET (UD) PO SCH (09:26)
[2019-05-16] MEDS: MULTIVITAMINS (DAILY MVI) TABLET (FP) PO SCH (09:29)
[2019-05-16] MEDS: ASPIRIN COATED 81 MG TABLET.EC PO SCH (09:29)
[2019-05-16] MEDS: FOLIC ACID 1 MG TABLET (FP) PO SCH (09:29)
[2019-05-16] MEDS: SODIUM CHLORIDE 1 GM TABLET PO SCH (09:30)
[2019-05-16] MEDS: TICAGRELOR 90 MG TABLET PO SCH (09:30)
[2019-05-16] MEDS: THIAMINE HCL 100 MG TABLET (FP) PO SCH (09:31)
[2019-05-16] MEDS: BUDESONIDE/FORMETEROL FUMARATE 160/4.5 mcg INHALER IH SCH (09:31)
[2019-05-16 09:38] VITALS: PULSE 70; TEMP 98
[2019-05-16] MEDS ORDERED: metoPROLOL SUCCINATE 25 MG TAB.SR.24H (FP) PO SCH (10:00)
[2019-05-16] MEDS ORDERED: LISINOPRIL 5 MG TABLET (FP) PO SCH (10:00)
[2019-05-16 11:32] VITALS: BP 120/70
--- NOTE | 2019-05-16 11:42 | DS ---
Physical Exam: SUBJECTIVE: Patient seen and examined He presented with . he patient is a 64 year old male, with a significant past medical history of polysubstance abuse (alcohol and cocaine, hx of withdrawal seizures), asthma, HTN, HLD, CAD (s/p mitral valve replacement 93, CABG 05, and pacemaker 09) CHF, and Aortic Aneurysm (ascending aorta, distal abdominal aorta, left common iliac artery, left internal iliac artery), who presented to the emergency department with worsening shortness of breath. As per EMR and patient, he was evaluated at [facility] in the [place] on 04/19 at which time he was discharged to [facility] on 04/29 on 5 days of Augmentin 875/125 BID and Doxycycline 100 MG BID (compliant). Patient notes his shortness of breath has not improved, prompting his arrival to the ED. Per the EMR, pt was hypoxic to 85 % at [facility] prior to admission OBJECTIVE: Vital Signs Period Temp Pulse Resp BP Sys/Hernandez Pulse Ox Last 24 Hr 97.9 F-98.7 F 70-85 18-20 80-120/53-70 99 PHYSICAL EXAM GENERAL: The patient is awake, alert, and fully oriented, in no acute distress. HEAD: Normal with no signs of trauma. EYES: PERRL, extraocular movements intact, sclera anicteric, conjunctiva clear. ENT: Ears normal, nares patent, oropharynx clear without exudates, moist mucous membranes. NECK: Trachea midline, full range of motion, supple. LUNGS: Breath sounds equal, clear to auscultation bilaterally, no wheezes, no crackles, no accessory muscle use. HEART: Regular rate and rhythm, S1, S2 without murmur, rub or gallop. ABDOMEN: Soft, nontender, nondistended, normoactive bowel sounds, no guarding, no rebound, no hepatosplenomegaly, no masses. EXTREMITIES: 2+ pulses, warm, well-perfused, no edema. NEUROLOGICAL: Cranial nerves II through XII grossly intact. Normal speech, gait not observed. PSYCH: Normal mood, normal affect. SKIN: Warm, dry, normal turgor, no rashes or lesions noted. LABS HOSPITAL COURSE: He was started on iv lasix , solumedrol and abx he improved on it and he did qualify for home oxygen , He is stable and had low bp yesterday and today he is better.He was r/o for acute mi He is going to f/u with his [facility] . CBC, BMP 05/15/19 05:58 05/15/19 05:58 Current Medications Aspirin (Ecotrin -) 81 mg PO DAILY [facility] Last Admin: 05/16/19 09:29 Dose: 81 mg Atorvastatin Calcium (Lipitor -) 80 mg PO HS [facility] Last Admin: 05/15/19 22:18 Dose: 80 mg Budesonide/Formoterol Fumarate (Symbicort 160/4.5mcg -) 2 puff IH BID [facility] Last Admin: 05/16/19 09:31 Dose: Not Given Docusate Sodium (Colace -) 100 mg PO TID [facility] Last Admin: 05/16/19 06:36 Dose: 100 mg Ferrous Sulfate (Feosol -) 325 mg PO TIDCM [facility] Last Admin: 05/16/19 09:26 Dose: 325 mg Folic Acid (Folic Acid -) 1 mg PO DAILY [facility] Last Admin: 05/16/19 09:29 Dose: 1 mg Lisinopril (Prinivil) 2.5 mg PO BID [facility] Last Admin: 05/16/19 09:26 Dose: 2.5 mg Metoprolol Succinate (Toprol Xl -) 25 mg PO BID [facility] Last Admin: 05/16/19 09:29 Dose: 25 mg Montelukast Sodium (Singulair -) 10 mg PO HS [facility] Last Admin: 05/15/19 22:18 Dose: 10 mg Multivitamins/Minerals/Vitamin C (Tab-A-Vit -) 1 tab PO DAILY [facility] Last Admin: 05/16/19 09:29 Dose: 1 tab Prednisone (Deltasone -) 10 mg PO BID [facility] Last Admin: 05/16/19 09:26 Dose: 10 mg Senna (Senna -) 2 tab PO HS PRN PRN Reason: CONSTIPATION Last Admin: 05/15/19 22:22 Dose: 2 tab Sodium Chloride (Sodium Chloride Tablet -) 1 gm PO BID [facility] Last Admin: 05/16/19 09:30 Dose: 1 gm Thiamine HCl (Vitamin B1 -) 100 mg PO DAILY [facility] Last Admin: 05/16/19 09:31 Dose: 100 mg Ticagrelor (Brilinta -) 90 mg PO BID [facility] Last Admin: 05/16/19 09:30 Dose: 90 mg Date of Admission:05/05/19 Date of Discharge: 05/16/19 Minutes to complete discharge: 30 Discharge Summary Reason For Visit: SOB Current Active Problems Anemia (Acute) CHF (congestive heart failure) (Acute) PNA (pneumonia) (Acute) Polysubstance (including opioids) dependence without physiological dependence ( Acute) Prophylactic measure (Acute) Thoracic aortic aneurysm (Acute) Condition: Improved - Instructions Diet, Activity, Other Instructions: He go f/u with his cardiology in one week, He doesnt have a pmd and advised him to stay on low salt diet and use home oxygen He promised that he will find primary medical doctor for him. Disposition: HOME - Home Medications Comprehensive Discharge Medication List: Ambulatory Orders RX: Aspirin Coated [Ecotrin -] 81 mg PO DAILY #30 tablet.ec 05/22/15 RX: Montelukast Na [Singulair -] 10 mg PO HS #30 tablet 05/22/15 RX: Ticagrelor [Brilinta -] 90 mg PO BID 04/29/19 RX: Atorvastatin Ca [Lipitor] 80 mg PO HS 05/05/19 RX: Lisinopril [Prinivil] 5 mg PO DAILY 05/05/19 RX: Albuterol 0.083% Nebulizer Desiree [Ventolin 0.083% Nebulizer Soln -] 1 amp NEB Q4H PRN #100 amp 05/16/19 RX: Albuterol Sulfate Inhaler - [Ventolin HFA Inhaler -] 2 inh PO Q4H PRN #1 inh 05/16/19 RX: Aspirin Coated [Ecotrin -] 81 mg PO DAILY #30 tablet.ec 05/16/19 RX: Atorvastatin Ca [Lipitor] 80 mg PO HS #30 tablet 05/16/19 RX: Budesonide/Formeterol Fumarate [SYMBICORT 160/4.5mcg -] 2 inh IH BID #1 inhaler 05/16/19 RX: Ferrous Sulfate [Feosol] 325 mg PO TIDCM #90 ud 05/16/19 RX: Folic Acid - 1 mg PO DAILY #30 tablet 05/16/19 RX: Furosemide [Lasix -] 40 mg PO DAILY #30 tablet 05/16/19 RX: Lisinopril [Prinivil] 5 mg PO DAILY #30 tablet 05/16/19 RX: Metolazone [Zaroxolyn -] 2.5 mg PO Q2D@1330 tablet 05/16/19 RX: Metoprolol Succinate [Toprol XL -] 25 mg PO BID #60 tab.sr.24h 05/16/19 RX: Montelukast Na [Singulair -] 10 mg PO HS #30 tablet 05/16/19 RX: Thiamine HCl [Vitamin B1 -] 100 mg PO DAILY tablet 05/16/19 RX: Thiamine HCl [Vitamin B1 -] 100 mg PO DAILY #30 tablet 05/16/19 RX: Ticagrelor [Brilinta -] 90 mg PO BID #60 tablet 05/16/19 RX: predniSONE [Deltasone -] 10 mg PO BID #30 tablet 05/16/19 Problem List - Problems (1) Anemia Code(s): D64.9 - ANEMIA, UNSPECIFIED (2) CHF (congestive heart failure) Code(s): I50.9 - HEART FAILURE, UNSPECIFIED (3) PNA (pneumonia) Code(s): J18.9 - PNEUMONIA, UNSPECIFIED ORGANISM (4) Polysubstance (including opioids) dependence without physiological dependence Code(s): F19.20 - OTHER PSYCHOACTIVE SUBSTANCE DEPENDENCE, UNCOMPLICATED (5) Thoracic aortic aneurysm Code(s): I71.2 - THORACIC AORTIC ANEURYSM, WITHOUT RUPTURE (6) CAD (coronary artery disease) Code(s): I25.10 - ATHSCL HEART DISEASE OF [place]ISQUALLY CORONARY ARTERY W/O ANG PCTRS Qualifiers: Coronary Disease-Associated Artery/Lesion type: bypass graft (7) COPD (chronic obstructive pulmonary disease) Code(s): J44.9 - CHRONIC OBSTRUCTIVE PULMONARY DISEASE, UNSPECIFIED Qualifiers: Emphysema type: unspecified This patient is new to me today: No Emergency Visit: Yes ED Registration Date: 05/05/19 Care time: The patient presented to the Emergency Department on the above date and was hospitalized for further evaluation of their emergent condition. Critical Care patient: No - Discharge Referral Referred to [facility] No
== END 2019-05-16 14:25 | disposition home or self-care (01) | DRG 194 ==
LOC: JER 11:03 → JERBED 13:25 → J4W 22:29
PROVIDERS: ADMIT Internal Medicine; ATTEND Internal Medicine
DX: I11.0 Hypertensive heart disease with heart failure (principal); J44.1 Chronic obstructive pulmonary disease with (acute) exacerbation; I50.23 Acute on chronic systolic (congestive) heart failure; I25.10 Atherosclerotic heart disease of native coronary artery without angina pectoris; E78.5 Hyperlipidemia, unspecified; J45.909 Unspecified asthma, uncomplicated; D64.9 Anemia, unspecified; J18.9 Pneumonia, unspecified organism; E78.00 Pure hypercholesterolemia, unspecified; F19.20 Other psychoactive substance dependence, uncomplicated; I25.2 Old myocardial infarction; R59.9 Enlarged lymph nodes, unspecified; F10.20 Alcohol dependence, uncomplicated; I71.2 Thoracic aortic aneurysm, without rupture; R91.1 Solitary pulmonary nodule; F14.20 Cocaine dependence, uncomplicated; R09.02 Hypoxemia; J98.11 Atelectasis; E87.1 Hypo-osmolality and hyponatremia; Z95.0 Presence of cardiac pacemaker; Z95.2 Presence of prosthetic heart valve; Z95.1 Presence of aortocoronary bypass graft; Z87.891 Personal history of nicotine dependence
CPT/HCPCS: 36415; 71045-TC-FY; 71275-TC; 80048; 80053; 82607; 82728; 82746; 82803; 83540; 83550; 83735; 83880; 84484; 85025; 85610; 85730; 86850; 86900; 86901; 93005; 93010; 93306-TC; 94640; 94660; 94761; 99284-25